=== PATIENT | female | born 1940 | race Caucasian/White ===

== ENCOUNTER 2017-09-10 15:20 | Emergency (ER) | payer MEDICARE, BC, SELFPAY ==
[2017-09-10 15:21] VITALS: BP 153/90; PULSE 118; RESP 20; TEMP 37.1; O2SAT 95; BMI 21.9
--- NOTE | 2017-09-10 15:31 | RAD_ITS ---
STUDY: X-RAY CHEST REASON FOR EXAM: Female, 76 years old. Tachycardia TECHNIQUE: A single frontal view of the chest was obtained. COMPARISON: March 31, 2017 FINDINGS: The lungs are adequately aerated. There are minimal opacities in the mid right lung. There is no demonstrated pleural abnormality. The cardiac silhouette is normal in size. The mediastinum and hilar regions are unremarkable. Normal visualized pulmonary arteries. There is atherosclerotic calcification of the thoracic aorta. There are diffuse degenerative changes of the visualized spine. There is levoscoliosis of the thoracic spine. There are degenerative changes in both shoulders. There is no demonstrated abnormality of the visualized upper abdomen. RAD/Chest 1 View (Portable) IMPRESSION: There is minimal atelectasis in the mid right lung, better seen on the CT from the same day. The cardiac silhouette is normal in size. Electronically Signed: Ira Roach MD at 20:13 EST Tel Direct: [phone], Service support ,
--- NOTE | 2017-09-10 15:32 | EKG12_ITS ---
Test Reason : TACHYCARDIA Blood Pressure : / mmHG Vent. Rate : 113 BPM Atrial Rate : 113 BPM P-R Int : 130 ms QRS Dur : 072 ms QT Int : 334 ms P-R-T Axes : 078 055 073 degrees QTc Int : 458 ms Sinus tachycardia Nonspecific ST and T wave abnormality Abnormal ECG Confirmed by DIANA BUSTAMANTE, OTTO ([id number]), order editor CHAD DENNISON ([id number] on 09/13/2017 1:17:57 PM Referred By: SEAN Confirmed By:OTTO ORTIZ MD
[2017-09-10] MEDS: 0.9% Normal Saline 1,000 ML 1000 ML IV (15:40)
--- NOTE | 2017-09-10 15:40 | ED.DCSUM_ITS ---
- ER Visit Summary Date of Service: 09/10/17 Chief Complaint: Palpitations History of Present Illness: The patient is a 76 F presenting with palpitations. She states that she began having chest heaviness. She checked her pulse with her blood pressure machine and it was 186. She complains of midsternal chest heaviness with no radiation. She has a history of COPD, hypertension, hypercholesterolemia, chronic kidney disease, SVT. She is a previous smoker. She states she now is feeling improved. Physical Examination: Vitals are stable. Patient is afebrile. Alert no acute distress. HEENT exam is unremarkable. Neck is supple. Lungs are clear and equal bilaterally. Heart is regular and tachycardic Abdomen is soft nontender nondistended. Extremities are unremarkable. No edema. Skin is warm and dry. No focal neurologic deficit. Remainder of exam is unremarkable. Emergency Department Course and Treatment: Patient is given albuterol and Atrovent aerosols. EKG is sinus tachycardia rate of [address]-T wave changes. CBC, chemistries unremarkable. Creatinine is 1.16. Troponin is negative. D-dimer is elevated at 0.94. Due to elevated d-dimer CTA chest was obtained which shows emphysema with scarring, no PE, small hepatic cyst. Patient was discussed with the hospitalist Dr. Snyder who evaluated her in the ED. Patient does not want to be admitted to the hospital. Dr. Snyder discussed her case with Dr. Younger covering for Dr. Montero. Recommendation to increase her metoprolol from 25 mg once a day to 50 mg once a day. She will follow-up with Dr. Montero next week. She is advised return to the ED for any worsening complaints. Disposition: Discharge home Impression: SVT, resolved; COPD This note was generated with [employer] dictation software. It may contain incorrect words, spelling, and punctuation that were not noted in review of the chart prior to signing ED Disposition - Plan for ED Patient: Chief Complaint: Palpitations Referrals: Jai Morales MD [Primary Care Provider] -
[2017-09-10 15:49] VITALS: PULSE 109; RESP 20
[2017-09-10] MEDS: Ipratropium/Albuterol Sulfate 3 ML AMPUL.NEB INHALATION (15:49)
[2017-09-10] MEDS: Albuterol 2.5 MG/3 ML VIAL.NEB. INHALATION ×2 (16:00→16:07)
[2017-09-10 16:02] LABS: Absolute Lymphocyte Count 0.94 X10^3/ul (0.83-4.51); Absolute Neutrophil Count 7.1 X10^3/uL (2.0-7.7); Basophil# 0.02 X10^3/uL; Basophil% 0.2 % (0-1); Eosinophil# 0.08 X10^3/uL; Hematocrit 42.8 % (37-47); Hemoglobin 13.8 g/dl (12.0-15.0); Lymphocyte # 0.94 X10^3/ul (4.0); Lymphocyte % 11.3 % (19-41); Mean Corp Hgb Conc 32.2 g/gl (32-36); Mean Corpuscular Hgb 30.9 pg (27.0-32.0); Mean Platelet Vol. 9.7 fl (6.2-12.0); Monocyte# 0.15 X10^3/uL; Monocyte% 1.8 % (0-10); Neutrophil # 7.06 X10^3/uL (2.7-7.7); Neutrophil % 85.1 % (47-70); Platelet Count 233 K/mm3 (150-450); RBC Distribution Width CV 15.3 % (11.6-14.6); RBC Distribution Width SD 53.5 fl (35.1-43.9); Red Blood Count 4.46 M/mm3 (4.2-5.4); White Blood Count 8.3 K/mm3 (4.4-11.0)
[2017-09-10 16:07] LABS: POSITIVE COUNT NO; POSITIVE DIFFERENTIAL NO; POSITIVE MORPHOLOGY NO
[2017-09-10 16:09] LABS: D-Dimer Quantitative (DVT/PE) 0.94 FEU/ug/m (0.27-0.49)
--- NOTE | 2017-09-10 16:10 | CT_ITS ---
STUDY: CTA CHEST REASON FOR EXAM: Female, 76 years old. Elevated d-dimer, tachycardia RADIATION DOSAGE (If Supplied By Facility): CTDIvol = ( 5.8 ) mGy, DLP = ( 183.87 ) mGycm TECHNIQUE: The examination was performed with the intravenous administration of 75 ml of Isovue 370 contrast material. Post-processing of the angiographic images was performed, with multiplanar reformation and 3D reconstruction. Individualized dose optimization techniques were used for this CT. COMPARISON: Chest radiograph from the same day FINDINGS: Normal enhancement of the main pulmonary artery and right and left pulmonary arteries without filling defects. There are peripheral filling defects within pulmonary artery branches to the right lower lobe. There are marked vascular calcifications in the thoracic aorta. There is no demonstrated aortic dissection. The heart is normal in size. There are calcifications of the coronary arteries. The mediastinum is unremarkable. The hilar regions are unremarkable. The airways in the lower lobes are dilated. There are bullous changes throughout both lungs. There is minimal biapical scarring. There are coarse opacities in the lateral segment of the right upper lobe and medial segment of the right lower lobe. There are a few calcified granulomas in the right lung. There is no demonstrated pleural abnormality. The soft tissues are unremarkable. There are mild degenerative changes in the visualized spine. There is a 1.6 cm hypodensity which is incompletely visualized in the liver, probable cyst. The kidneys were not adequately imaged. No acute abnormalities are seen in the upper abdomen. CT/CTA Chest W/WO Contrast IMPRESSION: There are minimal pulmonary emboli within pulmonary artery branches to the right lower lobe. These are peripherally located and may be subacute or chronic. There is atelectasis in the lateral segment of the right upper lobe and medial segment of the right lower lobe. There are emphysematous changes in both lungs. There is bronchiectasis in both lung bases. There is no pleural effusion or significant lymphadenopathy. N.B. : The above information has been verbally conveyed by Ira Roach MD to Dr. Marianne Montana, Referring Physician, on 09/10/2017 20:03:33 (ET). Electronically Signed: Ira Roach MD at 20:02 EST Tel Direct: [phone], Service support , N.B. : The above information has been verbally conveyed by Ira Roach MD to Dr. Marianne Montana, Referring Physician, on 09/10/2017 20:03:33 (ET).
--- NOTE | 2017-09-10 16:10 | ED.RN ---
DR ALLEN NOTIFIED OF DDIMER RESULTS
[2017-09-10 16:11] LABS: Anion Gap 10 (5-15); BUN 16 mg/dL (7-18); BUN/Creat Ratio 13.8 RATIO (10-20); Calcium,Total 8.8 mg/dL (8.5-10.1); Chloride 107 mmol/L (98-107); Creatinine, Serum 1.16 mg/dL (0.55-1.02); EST Glomerular Filtration Rate 48 mL/min (>60); Est Glom Filt Rate - Afr Amer 59 mL/min (>60); Estimated Creatinine Clearance 33.14 ml/min; Glucose 149 mg/dL (74-106); Potassium 3.9 mmol/L (3.5-5.1); Sodium Level 142 mmol/L (136-145)
[2017-09-10 16:44] VITALS: BP 175/69; PULSE 105; RESP 18; O2SAT 98
[2017-09-10 18:17] VITALS: BP 148/64; PULSE 98; O2SAT 98
[2017-09-10 19:08] VITALS: BP 156/69; PULSE 104; RESP 16; O2SAT 97
--- NOTE | 2017-09-10 19:57 | ED.DEP ---
ED Disposition - Plan for ED Patient: Chief Complaint: Palpitations Instructions: ED Tachycardia Pat PSVT Referrals: Jai Morales MD [Primary Care Provider] - Micha Montero MD [STAFF PHYSICIAN] -
--- NOTE | 2017-09-10 20:30 | ED.DCSUM_ITS ---
- ER Visit Summary Date of Service: 09/10/17 This is an addendum to the previous dictation. Preliminary reading of CTA chest was initially read by Dr. Maciel as no PE. The final reading read by Dr. Roach showed there are minimal pulmonary emboli within pulmonary artery branches to the right lower lobe. These are peripherally located and may be subacute or chronic.There is atelectasis in the lateral segment of the right upper lobe and medial segment of the right lower lobe. There are emphysematous changes in both lungs. There is bronchiectasis in both lung bases. There is no pleural effusion or significant lymphadenopathy. Dr Snyder again discussed with the patient that she had one abnormal CT result and one reading that showed no PE. She is not hypoxic. She still wishes to go home. She is started on Xarelto and will follow up with her application security engineer on Wednesday. She is advised to return to ED for any worsening complaints. This note was generated with [employer] dictation software. It may contain incorrect words, spelling, and punctuation that were not noted in review of the chart prior to signing ED Disposition - Plan for ED Patient: Chief Complaint: Palpitations Instructions: ED Tachycardia Pat PSVT Referrals: Micha Montero MD [STAFF PHYSICIAN] - Jai Morales MD [Primary Care Provider] -
--- NOTE | 2017-09-10 20:33 | ED.DEP ---
ED Disposition - Plan for ED Patient: Chief Complaint: Palpitations Instructions: ED Tachycardia Pat PSVT Prescriptions: Rivaroxaban [Xarelto] 15 mg PO BID #42 tablet Referrals: Micha Montero MD [STAFF PHYSICIAN] - Jai Morales MD [Primary Care Provider] -
[2017-09-10] MEDS: Rivaroxaban 15 MG Tablet PO (20:46)
[2017-09-10 20:47] VITALS: BP 114/54; PULSE 89; RESP 18; O2SAT 97
== END 2017-09-10 20:50 | disposition home or self-care (01) ==
PROVIDERS: Emergency Provider Emergency Medicine; Family Provider Family Medicine; PCP Family Medicine
DX: I47.1 Supraventricular tachycardia (principal); I26.99 Other pulmonary embolism without acute cor pulmonale; J98.11 Atelectasis; J44.9 Chronic obstructive pulmonary disease, unspecified; E78.00 Pure hypercholesterolemia, unspecified; I12.9 Hypertensive chronic kidney disease with stage 1 through stage 4 chronic kidney disease, or unspecified chronic kidney disease; N18.9 Chronic kidney disease, unspecified; Z87.891 Personal history of nicotine dependence; Z79.51 Long term (current) use of inhaled steroids; Z79.82 Long term (current) use of aspirin; Z79.899 Other long term (current) drug therapy
CPT/HCPCS: 71045; 71275; 80048; 84484; 85025; 85379; 93005; 94640; 96360; 99285; J7030; Q9967; A4216

== ENCOUNTER → 2017-09-29 07:46 | Outpatient (CLI) | payer MEDICARE, BC, SELFPAY ==
--- NOTE | 2017-09-29 07:54 | VDLE_ITS ---
Reason For Study: PE RIGHT LEFT GSV is normal. GSV is normal. CFV is compressible, spontaneous, competent CFV is compressible, spontaneous, competent, and demonstrates pulsatile venous flow. and demonstrates pulsatile venous flow. FV is compressible, spontaneous, competent FV is compressible, spontaneous, competent and demonstrates pulsatile venous flow. and demonstrates pulsatile venous flow. POP V is compressible, spontaneous, POP V is compressible, spontaneous, competent and demonstrates pulsatile venous competent and demonstrates pulsatile venous flow. flow. T/P Trunk is compressible. T/P Trunk is compressible. PTV is compressible. PTV is compressible. RT PerV is compressible. LT PerV is compressible. Procedure Exam performed in department. A preliminary report was called and/or faxed to Dr. Mathis. Interpretation Summary Deep veins of the lower extremities are bilaterally patent and compressible segmentally. There is no evidence of deep vein thrombosis on either side. Valvular competence appears intact within the proximal deep venous systems bilaterally. The greater saphenous veins appear bilaterally patent and compressible segmentally. Pulsatile flow is noted in the deep venous systems bilaterally, which may be indicative of elevated central venous pressure (i.e. congestive heart failure, tricuspid valve insufficiency, etc.). Clinical correlation is advised. Ordering Physician: Emmett Mathis Referring Physician: Emmett Mathis Performed By: Shreya Melton RVT
== END ==
PROVIDERS: Family Provider Family Medicine; PCP Family Medicine; Visit Provider Internal Medicine Pulmonary Disease
DX: I26.99 Other pulmonary embolism without acute cor pulmonale (principal); R06.00 Dyspnea, unspecified
CPT/HCPCS: 93970

== ENCOUNTER → 2017-10-29 12:28 | Outpatient (CLI) | payer MEDICARE, BC, SELFPAY ==
[2017-10-29 13:40] LABS: BUN 16 mg/dL (7-18); Creatinine, Serum 1.31 mg/dL (0.55-1.02); EST Glomerular Filtration Rate 42 mL/min (>60); Est Glom Filt Rate - Afr Amer 51 mL/min (>60)
== END ==
PROVIDERS: Family Provider Family Medicine; PCP Family Medicine; Visit Provider Internal Medicine Pulmonary Disease
DX: I10 Essential (primary) hypertension (principal); I26.99 Other pulmonary embolism without acute cor pulmonale; Z79.899 Other long term (current) drug therapy
CPT/HCPCS: 36415; 82565; 84520

== ENCOUNTER → 2017-12-06 12:08 | Outpatient (CLI) | payer MEDICARE, BC, SELFPAY ==
--- NOTE | 2017-12-06 12:10 | EKG12_ITS ---
Test Reason : PALPITATIONS Blood Pressure : / mmHG Vent. Rate : 080 BPM Atrial Rate : 080 BPM P-R Int : 124 ms QRS Dur : 078 ms QT Int : 384 ms P-R-T Axes : 080 055 069 degrees QTc Int : 442 ms Sinus rhythm with Possible Premature atrial complexes with Aberrant conduction with junctional escape complexes Nonspecific ST and T wave abnormality Abnormal ECG Confirmed by JAKI BUSTAMANTE, DENIZ ([id number]), communications editor CHAD DENNISON ([id number]) on 12/08/2017 2:25:39 PM Referred By: Emily Gutiérrez Confirmed By:DENIZ POLLACK MD
== END ==
PROVIDERS: Family Provider Family Medicine; PCP Family Medicine; Visit Provider Physician Assistant Medical
DX: R00.2 Palpitations (principal)
CPT/HCPCS: 93005

== ENCOUNTER → 2017-12-23 14:57 | Outpatient (CLI) | payer MEDICARE, BC, SELFPAY ==
--- NOTE | 2017-12-23 15:02 | VDLE_ITS ---
Reason For Study: LEG SWELLING RIGHT LEFT GSV is normal. GSV is normal. CFV is compressible, spontaneous, competent CFV is compressible, spontaneous, competent, and demonstrates pulsatile venous flow. and demonstrates pulsatile venous flow. FV is compressible, spontaneous, competent FV is compressible, spontaneous, competent and demonstrates pulsatile venous flow. and demonstrates pulsatile venous flow. POP V is compressible, spontaneous, POP V is compressible, spontaneous, competent and demonstrates pulsatile venous competent and demonstrates pulsatile venous flow. flow. T/P Trunk is compressible. T/P Trunk is compressible. PTV is compressible. PTV is compressible. RT PerV is compressible. LT PerV is compressible. Procedure Exam performed in department. A preliminary report was called and/or faxed to Ailyn Gutiérrez. Interpretation Summary Deep veins of the lower extremities are bilaterally patent and compressible segmentally. There is no evidence of deep vein thrombosis on either side. Valvular competence appears intact within the proximal deep venous systems bilaterally. The greater saphenous veins appear bilaterally patent and compressible segmentally. Pulsatile flow is noted in the deep venous systems bilaterally, which may be indicative of elevated central venous pressure (i.e. congestive heart failure, tricuspid valve insufficiency, etc.). Clinical correlation is advised. Ordering Physician: Emily Gutiérrez Referring Physician: Emily Gutiérrez Performed By: Shreya Melton RVT
== END ==
PROVIDERS: Family Provider Family Medicine; PCP Family Medicine; Visit Provider Physician Assistant Medical
DX: R60.0 Localized edema (principal)
CPT/HCPCS: 93970

== ENCOUNTER → 2017-12-29 08:56 | Outpatient (CLI) | payer MEDICARE, BC, SELFPAY ==
--- NOTE | 2017-12-30 05:18 | LEAS ---
Arterial Study - Arterial Study Arterial Study: Bilateral lower extremity noninvasive arterial exam at rest Right lower extremity The right PT and DP ankle-brachial index at rest are 1.03 and 1.09 respectively. The right posterior tibial Doppler waveforms biphasic while the dorsalis pedis is triphasic. Volume pulse recordings were not obtained. Left lower extremity The left PT and DP ankle-brachial indices are 1.08 and 1.02 respectively. The left posterior tibial Doppler waveform is biphasic while the dorsalis pedis is triphasic. Impression Normal bilateral lower extremity resting ankle brachial indices. Slightly diminished bilateral posterior tibial biphasic Doppler waveforms although nicely maintained triphasic dorsalis pedis. Endings would be consistent with mild but likely not clinically significant occlusive disease of bilateral posterior tibials. Emmett Quintanilla M.D., F.A.C.S.
== END ==
PROVIDERS: Family Provider Family Medicine; PCP Family Medicine; Visit Provider Physician Assistant Medical
DX: R09.89 Other specified symptoms and signs involving the circulatory and respiratory systems (principal); R60.0 Localized edema
CPT/HCPCS: 93922

== ENCOUNTER → 2018-04-18 14:36 | Outpatient (CLI) | payer MEDICARE, BC, SELFPAY ==
--- NOTE | 2018-04-18 14:49 | RAD_ITS ---
STUDY: X-RAY CHEST REASON FOR EXAM: Female, 77 years old. Shortness of breath and COPD. TECHNIQUE: PA and lateral views of the chest. COMPARISON: CT of the chest dated September 10, 2017. FINDINGS: There is hyperinflation of the lungs consistent with chronic obstructive lung disease (COPD). There is no demonstrated pleural abnormality. Normal size heart. Normal mediastinum and cecile. There is prominence of the pulmonary hilar arteries without peripheral pulmonary vascular congestion, suggesting pulmonary hypertension. There is atherosclerotic calcification of the aortic arch with tortuosity. There is demineralization of the osseous structures. There is multilevel thoracic spondylosis. Normal visualized ribs, clavicles, and shoulders. There is no demonstrated abnormality of the visualized soft tissue structures of the upper abdomen. RAD/Chest PA and Lateral IMPRESSION: COPD without evidence of acute cardiopulmonary disease. Electronically Signed: Amanda Jackson MD at 5:33 EDT , Service support ,
[2018-04-18 16:02] LABS: Erythrocyte Sedimentation Rate 9 mm/hr (0-30)
== END ==
PROVIDERS: Family Provider Family Medicine; PCP Family Medicine; Visit Provider Internal Medicine Pulmonary Disease
DX: J84.116 Cryptogenic organizing pneumonia (principal)
CPT/HCPCS: 36415; 71046; 85652

== ENCOUNTER → 2018-06-27 12:41 | Outpatient (CLI) | payer MEDICARE, BC, SELFPAY ==
[2018-06-21 12:44] VITALS: BMI 21.9
--- NOTE | 2018-06-27 13:03 | RAD_ITS ---
STUDY: X-RAY CHEST REASON FOR EXAM: Female, 77 years old. Cough TECHNIQUE: PA and lateral views of the chest. COMPARISON: 04/18/2018 FINDINGS: There is hyperinflation of the lungs consistent with chronic obstructive lung disease (COPD). There is no demonstrated pleural abnormality. No acute airspace disease. Stable areas of scarring in the right midlung field. Normal size heart. Normal mediastinum and cecile. Normal visualized pulmonary arteries. Normal visualized aortic arch and descending thoracic aorta. There are diffuse degenerative changes of the visualized thoracic spine. Normal visualized ribs, clavicles, and shoulders. There is no demonstrated abnormality of the visualized soft tissue structures of the upper abdomen. RAD/Chest PA and Lateral IMPRESSION: Stable COPD and scarring. No acute airspace disease. Electronically Signed: Lucas Barber DO at 12:59 EST Tel , Service support ,
[2018-06-27 13:46] LABS: Erythrocyte Sedimentation Rate 20 mm/hr (0-30)
== END ==
PROVIDERS: Family Provider Family Medicine; PCP Family Medicine; Referring Provider Internal Medicine Pulmonary Disease; Visit Provider Internal Medicine Pulmonary Disease
DX: J84.116 Cryptogenic organizing pneumonia (principal); J44.9 Chronic obstructive pulmonary disease, unspecified
CPT/HCPCS: 36415; 71046; 85652

== ENCOUNTER → 2018-08-04 07:48 | Outpatient (CLI) | payer MEDICARE, BC, SELFPAY ==
[2018-07-29 13:00] VITALS: BMI 21.9
[2018-08-04 08:12] VITALS: BP 178/80; PULSE 81; RESP 16; TEMP 36.7; O2SAT 96; BMI 20.3
[2018-08-04] MEDS: Cosyntropin 0.25 MG Vial IM (08:15)
== END ==
PROVIDERS: Family Provider Family Medicine; PCP Family Medicine; Referring Provider Nurse Practitioner; Visit Provider Nurse Practitioner
DX: Z79.52 Long term (current) use of systemic steroids (principal)
CPT/HCPCS: 36415; 82533; 96372; J0834

== ENCOUNTER → 2019-01-12 | Outpatient (CLI) | payer MEDICARE, BC, SELFPAY ==
[2018-09-19 13:24] VITALS: BMI 19.1
[2019-01-12 13:32] LABS: Absolute Lymphocyte Count 1.52 X10^3/ul (0.83-4.51); Absolute Neutrophil Count 2.8 X10^3/uL (2.0-7.7); Basophil# 0.03 X10^3/uL; Basophil% 0.5 % (0-1); Eosinophil# 1.22 X10^3/uL; Eosinophils% 20.9 % (0-5); Hematocrit 37.7 % (37-47); Hemoglobin 12.3 g/dl (12.0-15.0); Lymphocyte # 1.52 X10^3/ul (4.0); Mean Corp Hgb Conc 32.6 g/gl (32-36); Mean Corpuscular Hgb 30.3 pg (27.0-32.0); Mean Corpuscular Volume 92.9 fL (81-99); Mean Platelet Vol. 9.3 fl (6.2-12.0); Monocyte# 0.23 X10^3/uL; Monocyte% 3.9 % (0-10); Neutrophil # 2.83 X10^3/uL (2.7-7.7); Neutrophil % 48.5 % (47-70); Platelet Count 184 K/mm3 (150-450); RBC Distribution Width CV 14.8 % (11.6-14.6); RBC Distribution Width SD 49.8 fl (35.1-43.9); Red Blood Count 4.06 M/mm3 (4.2-5.4); White Blood Count 5.8 K/mm3 (4.4-11.0)
[2019-01-12 13:34] LABS: POSITIVE COUNT NO; POSITIVE DIFFERENTIAL NO; POSITIVE MORPHOLOGY NO
== END | disposition home or self-care (01) ==
LOC: LAB 13:16
PROVIDERS: Family Provider Family Medicine; PCP Family Medicine; Referring Provider Internal Medicine Pulmonary Disease; Visit Provider Internal Medicine Pulmonary Disease
DX: J44.9 Chronic obstructive pulmonary disease, unspecified (principal); J84.116 Cryptogenic organizing pneumonia
CPT/HCPCS: 36415; 85025

== ENCOUNTER → 2019-01-23 | Outpatient (CLI) | payer MEDICARE, BC, SELFPAY ==
[2018-09-19 13:24] VITALS: BMI 19.1
--- NOTE | 2019-01-23 16:18 | US_ITS ---
STUDY: RENAL ULTRASOUND - COMPLETE REASON FOR EXAM: Female, 78 years old. Chronic kidney disease stage III TECHNIQUE: Ultrasound evaluation of the kidneys was performed with real-time and static sparks-scale imaging. COMPARISON: None. FINDINGS: RIGHT KIDNEY: The kidney is small with echogenic cortex relative to liver. It measures 6.6 x 4.1 x 2.3 cm with cortical thickness of 7 mm. There is no right renal mass or cyst. There are no right renal calculi. There is no right hydronephrosis. DISTAL RIGHT URETER: There is non-visualization of the distal right ureter. There is no demonstrated right ureterovesical junction calculus. There is a visualized right ureteral jet. LEFT KIDNEY: The kidney is small with echogenic cortex relative to liver. It measures 8.9 x 5.1 x 3.4 cm with cortical thickness of 9 mm. There is no left renal mass or cyst. There are no left renal calculi. There is no left hydronephrosis. DISTAL LEFT URETER: There is non-visualization of the distal left ureter. There is no demonstrated left ureterovesical junction calculus. There is a visualized left ureteral jet. BLADDER: The distended urinary bladder has a volume of for 62.54 ml. There is a normal wall thickness of the distended urinary bladder. There is no demonstrated mass within the urinary bladder. There are no demonstrated bladder calculi. US/Kidney and Bladder IMPRESSION: The kidneys are small and echogenic bilaterally with thin cortices. Findings are compatible with chronic medical renal disease. Electronically Signed: Carlos Mcmillan MD at 17:58 EDT Tel , Service support ,
== END | disposition home or self-care (01) ==
LOC: US 16:16
PROVIDERS: Family Provider Family Medicine; PCP Family Medicine; Referring Provider Internal Medicine Nephrology; Visit Provider Internal Medicine Nephrology
DX: N18.3 Chronic kidney disease, stage 3 (moderate) (principal)
CPT/HCPCS: 76770

== ENCOUNTER 2019-01-26 13:38 | Emergency (ER) | payer MEDICARE, BC, SELFPAY ==
[2018-09-19 13:24] VITALS: BMI 19.1
[2019-01-26 13:39] VITALS: BP 195/69; PULSE 82; PULSE 85; RESP 17; TEMP 36.7; O2SAT 96; O2SAT 97; BMI 18.9
--- NOTE | 2019-01-26 13:49 | EKG12_ITS ---
Test Reason : CP Blood Pressure : / mmHG Vent. Rate : 093 BPM Atrial Rate : 133 BPM P-R Int : 000 ms QRS Dur : 080 ms QT Int : 402 ms P-R-T Axes : 000 042 066 degrees QTc Int : 499 ms Sinus Rhythm with PSVC's Nonspecific ST and T wave abnormality Abnormal ECG Confirmed by DIANA BUSTAMANTE, OTTO ([id number]), greeting card editor ANNA HERNANDEZ ([id number]) on 01/30/2019 2:22:55 PM Referred By: DEBORAH/CARMELLA Confirmed By:OTTO ORTIZ MD
--- NOTE | 2019-01-26 13:51 | ED.DCSUM_ITS ---
History of Present Illness Chief Complaint: Shortness of Breath Informant: Patient, Family Onset: Today Context: Sudden Onset Timing: Intermittent Quality: Dyspnea on exertion Location: Home going up a flight of steps Current Severity: Mild Maximum Severity: Severe Worsened by: Walking up a flight of steps Relieved by: Better with rest Associated Symptoms: Productive cough, which is unchanged from baseline Narrative: Patient is a 78-year-old woman who presents with dyspnea after walking up a flight of steps. She denied chest discomfort. She denied nausea or vomiting. She denied diaphoresis. She has been on prednisone the last 3 months. This has occurred to her in the past and the cause was COPD. She does have a history of pulmonary embolus. She is presently on no anticoagulant. She denies fever, chills or night sweats. She sleeps in the recliner. She sleeps in a recliner for comfort. She denies history of congestive heart failure. She denies GI symptoms. She denies urologic symptoms. She does report mild swelling of her lower extremities, which is not uncommon for her. Prior similar symptoms: Yes - Exacerbation of COPD Recent Illness/Hospitalization: No - Past Medical History (1) Atherosclerotic heart disease of [place] coronary artery with other forms of angina pectoris Status: Chronic (2) CKD (chronic kidney disease), stage III Status: Chronic (3) COPD (chronic obstructive pulmonary disease) Status: Chronic (4) Carotid bruit Status: Chronic (5) Hypertension Status: Chronic (6) Non-rheumatic tricuspid valve insufficiency Status: Chronic (7) Pulmonary hypertension Status: Chronic (8) SVT (supraventricular tachycardia) Status: Chronic Past Medical History - Allergies and Home Meds Allergies/Adverse Reactions: Allergies levofloxacin [From Levaquin] Adverse Reaction (Severe, Verified 01/26/19 13:38) Unknown sulfamethoxazole [From Bactrim] Adverse Reaction (Severe, Verified 01/26/19 13:38) Unknown trimethoprim [From Bactrim] Adverse Reaction (Severe, Verified 01/26/19 13:38) Unknown A 'MYCIN' BUT DO NOT REMEMBER Allergy (Uncoded 07/28/18 09:54) Hives Primary Care Physician: Jai Morales MD [Primary Care Provider] - Prior records reviewed: Yes Surgical History: appendectomy, hysterectomy Lives: Alone Smoking Status: Former smoker Alcohol: None - Family History Maternal Family History: Family History (Last Reviewed 09/19/18 @ 13:37 by Denisha Jansen) Father CAD (coronary artery disease) Myocardial infarction Mother CAD (coronary artery disease) Hypertension Sister CAD (coronary artery disease) Sister Hypertension CHF (congestive heart failure) Family History: Reports: Hypertension Paternal Family History: Family History (Last Reviewed 09/19/18 @ 13:37 by Denisha Jansen) Father CAD (coronary artery disease) Myocardial infarction Mother CAD (coronary artery disease) Hypertension Sister CAD (coronary artery disease) Sister Hypertension CHF (congestive heart failure) Family History: Reports: Heart Disease - [place] 60s. Review of Systems General: Denies: Chills, Fever, Sweats Eyes: Denies: Visual changes - bilaterally, Blurred Vision - bilaterally, Diplopia ENT: Denies: Bilateral ear pain, Rhinorrhea, Sore throat Cardiovascular: Denies: Chest pain, Palpitations Respiratory: Reports: Dyspnea, Cough, Sputum, Dyspnea on exertion. Denies: Orthopnea, Paroxysmal nocturnal dyspnea Gastrointestinal: Denies: Abdominal pain, Nausea, Vomiting, Diarrhea, Melena, Hematochezia Genitourinary: Denies: Dysuria, Hematuria, Frequency Musculoskeletal: Reports: Swelling. Denies: Myalgias, Arthralgias, Back pain, Extremity Pain Skin: Denies: Rash, Wounds Neurological: Denies: Headache, Weakness, Numbness Endocrine: Denies: Polyuria, Polydipsia Hematologic: Denies: Easy bruising, Easy bleeding Physical Exam Vital Signs/Narrative: Vital Signs Temp Pulse Resp BP Pulse Ox 01/26/19 13:39 98.1 F 82 17 195/69 H 96 Inital Vital Signs reviewed: Yes General: Well nourished, Well developed, No Acute Distress Head: Normocephalic, Atraumatic Eyes: Perrl, EOMI ENT: Moist mucous membranes, No rhinorrhea Neck: Supple, Nontender Cardiovascular: Regular rate, Regular rhythm, No murmurs Respiratory: Chest nontender, Wheezing, Decreased Air Movement. Negative for: No distress, CTA bilaterally Abdomen: Soft, Nontender, Nondistended, Normal bowel sounds, No masses Back: Nontender, Normal Inspection. Negative for: CVA tenderness, Spinal tende rness Extremities: Nontender, Edema - Plus minus bilaterally Skin: Normal color, No rash Neurological: Alert, Oriented x3, Cranial nerves II-XII grossly intact, Normal Strength, Normal Sensation Psychological: Normal affect, Normal Mood Diagnostic/Tx/Re-eval Chest X-Ray - ED: 2 View, Read by ED Physician, Unchanged, Normal, Heart, Mediastinum, Bony Structures, No Acute Disease, Chronic Changes Impressions Chest X-Ray 01/26/19 14:27 IMPRESSION: Hyperinflated lungs without significant change since the previous study 27 June 2018 . Electronically Signed: Aden Hernandez, at 14:44 EDT Tel , Service support , 01/26/19 14:27 Chest PA and Lateral [RAD] Stat Laboratory Results 01/26/19 01/26/19 13:59 13:59 WBC 7.0 RBC 3.99 L Hgb 12.0 Hct 36.4 L MCV 91.2 MCH 30.1 MCHC 33.0 RDW 14.9 H RDW Differential 48.8 H Plt Count 187 MPV 8.8 Immature Gran % (Auto) 0.100 Neut % (Auto) 60.0 Lymph % (Auto) 15.7 L Pre[place] % (Auto) 4.5 Eos % (Auto) 19.3 H Baso % (Auto) 0.4 Absolute Neuts (auto) 4.2 Absolute Lymphs (auto) 1.09 Total Counted Not Reportable Sodium 138 Potassium 4.0 Chloride 107 Carbon Dioxide 27.0 Anion Gap 4 L BUN 25 H Creatinine 1.43 H Estim Creat Clear Calc 25.28 Est GFR (MDRD) Af Amer 46 L Est GFR (MDRD) Non-Af 38 L BUN/Creatinine Ratio 17.5 Glucose 114 H Calcium 9.1 - EKG Initial EKG Interpretation: Atrial Fibrillation - Ventricular rate is 77. There is artifact. QRS duration 80 ms. QT interval 402 ms. Kirvin is normal. There may be slight ST-T wave changes noted in the lateral leads. Will obtain old for comparison. - Medical Decision Making To evaluate patient's dyspnea will obtain chest x-ray looking for pneumonia, pneumothorax. CBC was obtained to rule out anemia. Basic melena panel was obtained to assess renal function. Doubt pulmonary embolus. Will reassess after aerosol treatments. Patient was reexamined at 1545. She is wheeze free. She is not tachycardic, tachypneic or hypoxic. Will discharge with burst of prednisone. ED Disposition - Plan for ED Patient: Disposition: Home or Assisted Living Diagnosis: Acute exacerbation of chronic obstructive pulmonary disease (COPD) Instructions: Copd Flare Prescriptions: Prednisone [Deltasone] 40 mg PO DAILY #10 tab Prescription Printed Referrals: Jai Morales MD [Primary Care Provider] - 3-5 Days if not improving
[2019-01-26 13:55] VITALS: PULSE 86; RESP 18; O2SAT 95
[2019-01-26] MEDS: Albuterol 2.5 MG/3 ML VIAL.NEB. INHALATION ×3 (13:55→14:38)
[2019-01-26] MEDS: Ipratropium/Albuterol Sulfate 3 ML AMPUL.NEB INHALATION (13:55)
[2019-01-26 14:09] LABS: Absolute Lymphocyte Count 1.09 X10^3/ul (0.83-4.51); Absolute Neutrophil Count 4.2 X10^3/uL (2.0-7.7); Basophil# 0.03 X10^3/uL; Basophil% 0.4 % (0-1); Eosinophil# 1.34 X10^3/uL; Eosinophils% 19.3 % (0-5); Hematocrit 36.4 % (37-47); Lymphocyte # 1.09 X10^3/ul (4.0); Lymphocyte % 15.7 % (19-41); Mean Corpuscular Hgb 30.1 pg (27.0-32.0); Mean Corpuscular Volume 91.2 fL (81-99); Mean Platelet Vol. 8.8 fl (6.2-12.0); Monocyte# 0.31 X10^3/uL; Monocyte% 4.5 % (0-10); Neutrophil # 4.17 X10^3/uL (2.7-7.7); Platelet Count 187 K/mm3 (150-450); RBC Distribution Width CV 14.9 % (11.6-14.6); RBC Distribution Width SD 48.8 fl (35.1-43.9); Red Blood Count 3.99 M/mm3 (4.2-5.4)
[2019-01-26] MEDS: predniSONE 20 MG Tablet 60 MG PO (14:12)
[2019-01-26 14:13] LABS: POSITIVE COUNT NO; POSITIVE DIFFERENTIAL NO; POSITIVE MORPHOLOGY NO
[2019-01-26 14:21] VITALS: O2SAT 94
[2019-01-26 14:22] LABS: Anion Gap 4 (5-15); BUN 25 mg/dL (7-18); BUN/Creat Ratio 17.5 RATIO (10-20); Calcium,Total 9.1 mg/dL (8.5-10.1); Chloride 107 mmol/L (98-107); Creatinine, Serum 1.43 mg/dL (0.55-1.02); EST Glomerular Filtration Rate 38 mL/min (>60); Est Glom Filt Rate - Afr Amer 46 mL/min (>60); Estimated Creatinine Clearance 25.28 ml/min; Glucose 114 mg/dL (74-106); Sodium Level 138 mmol/L (136-145)
--- NOTE | 2019-01-26 14:27 | RAD_ITS ---
STUDY: X-RAY CHEST REASON FOR EXAM: Female, 78 years old. TECHNIQUE: 2 views COMPARISON: June 27, 2018 FINDINGS: Again noted hyperinflation of both lung hercules with flattening of the diaphragm. No evidence of consolidation or atelectasis. The heart is not enlarged. There is markedly tortuosity there is tortuosity and calcification off the aorta. The visualized bones are intact. The trachea is in the midline. No pleural effusion or pneumothorax seen. RAD/Chest PA and Lateral IMPRESSION: Hyperinflated lungs without significant change since the previous study 27 June 2018 . Electronically Signed: Aden Hernandez, at 14:44 EDT Tel , Service support ,
[2019-01-26 14:38] VITALS: PULSE 97; RESP 18
[2019-01-26 15:48] VITALS: BP 177/87; PULSE 97; RESP 21; O2SAT 95
== END 2019-01-26 15:52 | disposition home or self-care (01) ==
PROVIDERS: Emergency Provider Emergency Medicine; Family Provider Family Medicine; PCP Family Medicine
DX: J44.1 Chronic obstructive pulmonary disease with (acute) exacerbation (principal); I12.9 Hypertensive chronic kidney disease with stage 1 through stage 4 chronic kidney disease, or unspecified chronic kidney disease; N18.3 Chronic kidney disease, stage 3 (moderate); I25.118 Atherosclerotic heart disease of native coronary artery with other forms of angina pectoris; I27.20 Pulmonary hypertension, unspecified; Z87.891 Personal history of nicotine dependence; Z79.52 Long term (current) use of systemic steroids; Z86.711 Personal history of pulmonary embolism; Z79.51 Long term (current) use of inhaled steroids; Z79.899 Other long term (current) drug therapy
CPT/HCPCS: 71046; 80048; 85025; 93005; 94640; 99285; A4216

== ENCOUNTER → 2019-02-09 | Outpatient (CLI) | payer MEDICARE, BC, SELFPAY ==
[2019-01-26 13:39] VITALS: BMI 18.9
--- NOTE | 2019-02-09 10:11 | RAD_ITS ---
STUDY: X-RAY CHEST REASON FOR EXAM: Female, 78 years old. COPD. TECHNIQUE: PA and lateral chest COMPARISON: 01/26/2018 FINDINGS: There is prominent pulmonary hyperlucency and hyperinflation with diffuse mild coarsening of the pulmonary interstitium and hemidiaphragm flattening consistent with underlying severe COPD/emphysema. There is a small focus of chronic interstitial scar or fissural thickening in the right suprahilar lung, stable. Lungs are otherwise acutely clear. No suspicious lesions. Normal cardiomediastinal silhouette, cecile and pleural margins. No acute osseous or upper abdominal process. Osteopenia and scoliosis with no significant spondylosis. RAD/Chest PA and Lateral IMPRESSION: Prominent features of COPD/emphysema stable compared to prior imaging with no acute cardiopulmonary process. Electronically Signed: Parmjit Funez MD at 8:18 EDT Tel , Service support ,
== END | disposition home or self-care (01) ==
LOC: RAD 10:10
PROVIDERS: Family Provider Family Medicine; PCP Family Medicine; Referring Provider Internal Medicine Pulmonary Disease; Visit Provider Internal Medicine Pulmonary Disease
DX: J84.116 Cryptogenic organizing pneumonia (principal); J44.9 Chronic obstructive pulmonary disease, unspecified
CPT/HCPCS: 71046

== ENCOUNTER → 2019-03-24 | Outpatient (CLI) | payer MEDICARE, BC, SELFPAY ==
[2019-03-24 13:32] LABS: Erythrocyte Sedimentation Rate 19 mm/hr (0-30)
== END | disposition home or self-care (01) ==
LOC: LAB 12:48
PROVIDERS: Family Provider Family Medicine; PCP Family Medicine; Visit Provider Internal Medicine Pulmonary Disease
DX: I10 Essential (primary) hypertension (principal); I48.91 Unspecified atrial fibrillation; J44.9 Chronic obstructive pulmonary disease, unspecified; J84.116 Cryptogenic organizing pneumonia
CPT/HCPCS: 36415; 85652; 86140

== ENCOUNTER 2019-05-16 06:17 | Inpatient (IN) | payer MEDICARE, BC, SELFPAY ==
[2019-05-16] VITALS (34 sets, daily range): BP systolic 119–200; BP diastolic 70–119; PULSE 63–167; RESP 16–26; TEMP 36.3–36.7; O2SAT 80–100; BMI 20.1; BMI 19.2
--- NOTE | 2019-05-16 06:32 | RAD_ITS ---
STUDY: X-RAY CHEST REASON FOR EXAM: Female, 78 years old. Shortness of breath TECHNIQUE: Single AP portable view of the chest. COMPARISON: 02/09/2019 FINDINGS: There is hyperinflation of the lungs consistent with chronic obstructive lung disease (COPD). There is no demonstrated pleural abnormality. Normal size heart. Normal mediastinum and cecile. Normal visualized pulmonary arteries. Normal visualized aortic arch and descending thoracic aorta. There is a levoscoliosis of the thoracic spine. Normal visualized ribs, clavicles, and shoulders. There is no demonstrated abnormality of the visualized soft tissue structures of the upper abdomen. RAD/Chest 1 View (Portable) IMPRESSION: Emphysema without pneumonia or atelectasis. Electronically Signed: Parmjit Sherman MD at 8:39 EDT Tel , Service support ,
--- NOTE | 2019-05-16 06:32 | EKG12_ITS ---
Test Reason : SOB Blood Pressure : / mmHG Vent. Rate : 114 BPM Atrial Rate : 114 BPM P-R Int : 160 ms QRS Dur : 078 ms QT Int : 348 ms P-R-T Axes : 083 043 095 degrees QTc Int : 479 ms Sinus tachycardia with Premature supraventricular complexes Septal infarct , age undetermined Nonspecific ST-segment abnormality Abnormal ECG Confirmed by DIANA BUSTAMANTE, OTTO ([id number]), purchase request editor CHAD DENNISON ([id number]) on 05/17/2019 9:00:52 AM Referred By: FREYA Confirmed By:OTTO ORTIZ MD
--- NOTE | 2019-05-16 06:33 | ED.VIS.DYS ---
History of Present Illness Chief Complaint: Shortness of Breath Informant: Patient, EMS Onset: Days - 3 Activity at onset: Unknown Timing: Continuous Quality: Wheezing Current Severity: Moderate Maximum Severity: Moderate Worsened by: Coughing, Exertion Relieved by: Albuterol - a little, Oxygen - by EMS, Rest Associated Symptoms: Clear sputum - no more than usual, Cough - no more than usual. Negative for: Ear pain, Fever, Rhinorrhea, Sore throat Chest Pain: Continuous, Tightness Narrative: Patient lives at home alone has been using her albuterol MDI as needed for this shortness of breath, it is helping some but not enough. She states she has an aerosol machine but has not been using it and does not know why. She has been having chest tightness that has been continuous. No leg swelling or orthopnea. Coughing or bringing up white sputum but no more than usual of either. No fevers that she knows of. No GI symptoms except for some abdominal wall soreness when coughing. She is on no home oxygen. Follows with pulmonary, she last was on steroids 1-2 weeks ago, and is chronically on daily antibiotics to prevent pneumonia. She does not remember which when she is on right now. Recent Illness/Hospitalization: No - Past Medical History (1) Atherosclerotic heart disease of [place] coronary artery with other forms of angina pectoris Status: Chronic (2) CKD (chronic kidney disease), stage III Status: Chronic (3) COPD (chronic obstructive pulmonary disease) Status: Chronic (4) Hyperlipidemia Status: Chronic (5) Hypertension Status: Chronic (6) Non-rheumatic tricuspid valve insufficiency Status: Chronic (7) Pulmonary hypertension Status: Chronic (8) SVT (supraventricular tachycardia) Status: Chronic Past Medical History - Allergies and Home Meds Allergies/Adverse Reactions: Allergies levofloxacin [From Levaquin] Adverse Reaction (Severe, Verified 05/16/19 06:24) Unknown sulfamethoxazole [From Bactrim] Adverse Reaction (Severe, Verified 05/16/19 06:24) Unknown trimethoprim [From Bactrim] Adverse Reaction (Severe, Verified 05/16/19 06:24) Unknown A 'MYCIN' BUT DO NOT REMEMBER Allergy (Uncoded 05/16/19 06:24) Hives Primary Care Physician: Jai Morales MD [Primary Care Provider] - Doctors: Dr. Tony Bautista Surgical History: appendectomy, hysterectomy Lives: Alone Smoking Status: Former smoker - Family History Maternal Family History: Family History (Last Reviewed 09/19/18 @ 13:37 by Denisha Jansen) Father CAD (coronary artery disease) Myocardial infarction Mother CAD (coronary artery disease) Hypertension Sister CAD (coronary artery disease) Sister Hypertension CHF (congestive heart failure) Family History: Reports: Hypertension Paternal Family History: Family History (Last Reviewed 09/19/18 @ 13:37 by Denisha Jansen) Father CAD (coronary artery disease) Myocardial infarction Mother CAD (coronary artery disease) Hypertension Sister CAD (coronary artery disease) Sister Hypertension CHF (congestive heart failure) Family History: Reports: Heart Disease - [place] 60s. Review of Systems General: Reports: Malaise. Denies: Chills, Fever, Sweats Eyes: Denies: Visual changes - bilaterally, Diplopia ENT: Denies: Bilateral ear pain, Rhinorrhea, Sore throat Cardiovascular: Reports: Chest pain. Denies: Palpitations, Heart racing Respiratory: Reports: Dyspnea, Cough, Sputum, Dyspnea on exertion. Denies: Orthopnea Gastrointestinal: Denies: Abdominal pain, Nausea, Vomiting, Diarrhea, Melena, Hematochezia Genitourinary: Denies: Dysuria, Hematuria, Frequency Musculoskeletal: Denies: Back pain, Swelling, Extremity Pain Skin: Denies: Rash, Wounds Neurological: Denies: Headache, Weakness, Numbness Physical Exam Vital Signs/Narrative: Vital Signs Temp Pulse Resp BP Pulse Ox 05/16/19 06:25 98 05/16/19 06:18 97.4 F L 117 H 26 H 200/119 H 98 Inital Vital Signs reviewed: Yes General: Well nourished, Well developed, Acute Distress - mild respiratory Head: Normocephalic, Atraumatic Eyes: Perrl, EOMI ENT: Moist mucous membranes, No rhinorrhea Neck: Supple, Nontender Cardiovascular: Regular rate, Regular rhythm, No murmurs Respiratory: Chest nontender, Wheezing - expiratory ross at bases, symmetric, Diminished - throughout, symmetrically, Decreased Air Movement - speaking in [id number]. Negative for: Rales, Rhonchi Abdomen: Soft, Nontender, Nondistended, Normal bowel sounds Back: Nontender, Normal Inspection. Negative for: CVA tenderness Extremities: Nontender, No edema Skin: Normal color, No rash, No Trauma Neurological: Alert, Oriented x3, Cranial nerves II-XII grossly intact, Normal Strength, Normal Sensation Psychological: Normal affect, Normal Mood Diagnostic/Tx/Re-eval Chest X-Ray - ED: 1 View, Read by ED Physician, No Acute Disease, Chronic Changes Clinical Impression(s) from Imaging Studies Chest X-Ray 05/16/19 06:32 IMPRESSION: Emphysema without pneumonia or atelectasis. Electronically Signed: Parmjit Sherman MD at 8:39 EDT Tel , Service support , Laboratory Results 05/16/19 05/16/19 05/16/19 06:30 06:30 06:30 WBC 7.1 RBC 3.83 L Hgb 12.1 Hct 37.4 MCV 97.7 MCH 31.6 MCHC 32.4 RDW Std Deviation 54.0 H RDW Coeff of Kellie 15.4 H Plt Count 200 MPV 9.3 Immature Gran % (Auto) 0.300 Neut % (Auto) 61.2 Lymph % (Auto) 21.7 [place] % (Auto) 4.1 Eos % (Auto) 12.1 H Baso % (Auto) 0.6 Absolute Neuts (auto) 4.3 Absolute Lymphs (auto) 1.53 Nucleated RBC % 0 Sodium 143 Potassium 4.0 Chloride 111 H Carbon Dioxide 24.0 Anion Gap 8 BUN 27 H Creatinine 1.59 H Estim Creat Clear Calc 22.36 Est GFR (MDRD) Af Amer 40 L Est GFR (MDRD) Non-Af 33 L BUN/Creatinine Ratio 17.0 Glucose 140 H Calcium 8.2 L Troponin I < 0.015 B-Natriuretic Peptide 983.0 H - Rhythm Strip Rhythm Strip: Sinus Tach Rate: 114 Ectopy: PAC(s) - EKG Initial EKG Interpretation: Sinus Rhythm, No Acute Injury Pattern Treatment - Dyspnea: Oxygen, Albuterol, Atrovent, NTG SL, Steroid Repeat Evaluation: Improved With Ambulation: Desaturation, Tachypnea - Medical Decision Making Chest x-ray shows no pneumonia, labs are unremarkable, she does have some chronic kidney disease. She felt a lot better after nebulizer treatments and was actually wheezing a little louder, probably opened her up since she was very tight. Solu-Medrol was given. She was not hypoxic on room air so we ambulated her and she went a very short distance became very dyspneic, and her saturations went down to 80%. She does not have home oxygen. She was placed back on oxygen and given another albuterol treatment and plan is for admission to the hospital. Also gave her a single nitroglycerin, her blood pressure was over 200 and came down to 183/92. I suspect her chest tightness is pulmonary in etiology but unable to rule out cardiac involvement after reviewing her elevated BNP in the 900's. Her EKG is unremarkable from an ischemic standpoint. ED Disposition - Plan for ED Patient: Disposition: Acute Care Hospital [facility] Diagnosis: Acute respiratory failure with hypoxia, COPD with exacerbation, Accelerated hypertension, Chest pain Referrals: Jai Morales MD [Primary Care Provider] -
[2019-05-16 06:48] LABS: Absolute Lymphocyte Count 1.53 X10^3/uL (0.83-4.51); Absolute Neutrophil Count 4.3 X10^3/uL (2.0-7.7); Basophil# 0.04 X10^3/uL; Basophil% 0.6 % (0-1); Eosinophil# 0.85 X10^3/uL; Eosinophils% 12.1 % (0-5); Hematocrit 37.4 % (37-47); Hemoglobin 12.1 g/dL (12.0-15.0); Lymphocyte # 1.53 X10^3/ul (4.0); Lymphocyte % 21.7 % (19-41); Mean Corp Hgb Conc 32.4 g/dL (32-36); Mean Corpuscular Hgb 31.6 pg (27.0-32.0); Mean Corpuscular Volume 97.7 fL (81-99); Mean Platelet Vol. 9.3 fl (6.2-12.0); Monocyte# 0.29 X10^3/uL; Monocyte% 4.1 % (0-10); NRBC Flagged by Analyzer 0 % (0-5); Neutrophil # 4.32 X10^3/uL (2.7-7.7); Neutrophil % 61.2 % (47-70); Platelet Count 200 K/mm3 (150-450); RBC Distribution Width CV 15.4 % (11.6-14.6); Red Blood Count 3.83 M/mm3 (4.2-5.4); White Blood Count 7.1 K/mm3 (4.4-11.0)
[2019-05-16] MEDS: Nitroglycerin SL (ED/IMG/CATH) 0.4 MG TABLET SUBLINGUAL (06:55)
[2019-05-16] MEDS: Ipratropium/Albuterol Sulfate 3 ML AMPUL.NEB INHALATION ×3 (07:01→19:01)
[2019-05-16 07:03] LABS: Anion Gap 8 (5-15); BUN 27 mg/dL (7-18); Calcium,Total 8.2 mg/dL (8.5-10.1); Chloride 111 mmol/L (98-107); Creatinine, Serum 1.59 mg/dL (0.55-1.02); EST Glomerular Filtration Rate 33 mL/min (>60); Est Glom Filt Rate - Afr Amer 40 mL/min (>60); Estimated Creatinine Clearance 22.36 ml/min; Glucose 140 mg/dL (74-106); Sodium Level 143 mmol/L (136-145)
[2019-05-16] MEDS: Albuterol 2.5 MG/3 ML VIAL.NEB. INHALATION ×2 (07:26→08:19)
[2019-05-16] MEDS: MethylPREDNISolone 125 MG/2 ML Vial IV (08:06)
--- NOTE | 2019-05-16 08:45 | NURSING ---
DR BARKER FOR DR PILLAI
--- NOTE | 2019-05-16 08:55 | NURSING ---
125 HYPOXIC RESP FAILURE, COPD, [place]
[2019-05-16] MEDS: Metoprolol(XL)Succ 50 MG Tablet PO (11:31)
[2019-05-16] MEDS: 0.9% NaCl Peripheral Flush Adult/Peds IV ×3 (11:31→21:13)
[2019-05-16] MEDS: Ranolazine 500 MG Tablet PO (11:31)
[2019-05-16] MEDS: Furosemide 40 MG/4 ML Vial IV (11:31)
[2019-05-16] MEDS: Enoxaparin 30 MG/0.3 ML Syringe SC (11:31)
--- NOTE | 2019-05-16 12:07 | EKG12_ITS ---
Test Reason : RHYTHM Blood Pressure : / mmHG Vent. Rate : 129 BPM Atrial Rate : 129 BPM P-R Int : 000 ms QRS Dur : 084 ms QT Int : 346 ms P-R-T Axes : 000 032 096 degrees QTc Int : 506 ms Atrial fibrillation with rapid ventricular response with premature ventricular or aberrantly conducte d complexes ST depression, consider subendocardial injury Nonspecific T wave abnormality Abnormal ECG When compared with ECG of 16-MAY-2019 06:30, MANUAL COMPARISON REQUIRED, DATA IS UNCONFIRMED Confirmed by STAN BOOTHE ([id number]), manager editorial FACUNDO MOLINA ([id number]) on 05/19/2019 10:32:56 AM Referred By: HUMZA Confirmed By:STAN BOOTHE
[2019-05-16] MEDS: Metoprolol Tartrate 5 MG/5 ML Vial IV (12:45)
[2019-05-16] MEDS: Metoprolol Tartrate 50 MG Tablet PO (13:31)
--- NOTE | 2019-05-16 18:14 | HP.PCM_ITS ---
History of Present Illness Date of Admission: 05/16/19 Chief Complaint: SOB The patient is a 78 year old F with a PMH as below who presents with shortness of breath that was significantly worse today. She states that she has been having shortness of breath for the last several weeks and was initially on stero ids by her cloth shrinker. They were discontinued about a week and a half ago so she could obtain a flu shot and since that time she has had a steadily worsening in her respiratory status. Today she woke up and became significantly short of breath with ambulation as well as tightness across the chest. She denies any significant chest pain, in the ER her EKG was overall unremarkable with a normal troponin. She does take Lasix at home for lower extremity edema, but she is never been diagnosed with heart failure though she does describe for years now the inability to lay flat because of shortness of breath. On admission she denies any fevers or chills, however lab work in the ER did demonstrate a BNP of 983 with a creatinine of 1.59. She has no leukocytosis Past Medical History Past Medical History (Chronic Problems): Chronic Problems (Last Reviewed 09/19/18 @ 14:01 by NATHANIEL Vargas) COPD with exacerbation (Chronic) Pulmonary hypertension (Chronic) Carotid bruit (Chronic) Non-rheumatic tricuspid valve insufficiency (Chronic) Atherosclerotic heart disease of [place] coronary artery with other forms of angina pectoris (Chronic) COPD (chronic obstructive pulmonary disease) (Chronic) Hypertension (Chronic) SVT (supraventricular tachycardia) (Chronic) CKD (chronic kidney disease), stage III (Chronic) Hyperlipidemia (Chronic) Medical History: Medical History (Last Reviewed 09/19/18 @ 14:01 by NATHANIEL Vargas) Pulmonary hypertension (Chronic) I27.20 Non-rheumatic tricuspid valve insufficiency (Chronic) I36.1 Atherosclerotic heart disease of [place] coronary artery with other forms of angina pectoris (Chronic) I25.118 COPD (chronic obstructive pulmonary disease) (Chronic) J44.9 Hypertension (Chronic) I10 SVT (supraventricular tachycardia) (Chronic) I47.1 CKD (chronic kidney disease), stage III (Chronic) N18.3 Hyperlipidemia (Chronic) E78.5 Cryptogenic organizing pneumonia J84.116 Osteopenia M85.80 Pulmonary nodule R91.1 lymphoid inflammatory process Anxiety F41.9 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 Pulmonary emboli I26.99 RLS (restless legs syndrome) G25.81 Deep vein thrombosis I82.409 Shortness of breath R06.02 Allergies levofloxacin [From Levaquin] Adverse Reaction (Severe, Verified 05/16/19 06:24) Unknown sulfamethoxazole [From Bactrim] Adverse Reaction (Severe, Verified 05/16/19 06:24) Unknown trimethoprim [From Bactrim] Adverse Reaction (Severe, Verified 05/16/19 06:24) Unknown A 'MYCIN' BUT DO NOT REMEMBER Allergy (Uncoded 05/16/19 06:24) Hives Home Medications: Ambulatory Orders Medication Instructions Recorded Tiotropium [place] [Spiriva 18 MCG] 1 puff INHALATION DAILY 10/02/14 Roflumilast [Daliresp] 500 mcg PO DAILY 09/29/15 Atorvastatin Calcium [Lipitor] 20 mg PO QHS 02/14/16 Albuterol Inhaler [Ventolin Hfa] 1 - 2 puff INHALATION Q4H PRN PRN 01/17/17 ALPRAZolam [Xanax] 0.25 mg PO DAILY PRN PRN 03/30/17 Albuterol Aerosols [Ventolin 2.5 mg INHALATION Q6H PRN PRN 09/10/17 Aerosols] cholecalciferol (vitamin D3) 1,000 1,000 unit PO DAILY 07/28/18 unit capsule furosemide 40 mg tablet 40 mg PO QDAY tab 07/28/18 calcium carbonate 600 mg calcium 1,000 mg PO DAILY tab 09/19/18 (1,500 mg) tablet Fluticasone/Salmeterol [Advair 1 puff INHALATION BID 01/26/19 500-50 Diskus] Metoprolol Succinate [Toprol Xl] 50 mg PO QDAY 05/16/19 Ranolazine [Ranexa] 500 mg PO DAILY 05/16/19 Surgical History: Surgical History (Last Reviewed 09/19/18 @ 13:37 by Denisha Jansen) History of appendectomy Z90.49 History of hysterectomy Z90.710 History of left heart catheterization Onset Date: 11/08/14 Z98.890 Hx of cataract surgery Z98.49 S/P bronchoscopy with biopsy Z98.890 Surgical History: appendectomy, hysterectomy Psychiatric History: Anxiety ROLL EDGE STITCHER HAND History: No pertinent ROLL EDGE STITCHER HAND history Lives: Alone Smoking Status: Former smoker Tobacco Use: Cigarettes Alcohol: None Drugs: None - *Family History Maternal Family History: Family History (Last Reviewed 09/19/18 @ 13:37 by Denisha Jansen) Father CAD (coronary artery disease) Myocardial infarction Mother CAD (coronary artery disease) Hypertension Sister CAD (coronary artery disease) Sister Hypertension CHF (congestive heart failure) History Items: Hypertension Paternal Family History: Family History (Last Reviewed 09/19/18 @ 13:37 by Denisha Jansen) Father CAD (coronary artery disease) Myocardial infarction Mother CAD (coronary artery disease) Hypertension Sister CAD (coronary artery disease) Sister Hypertension CHF (congestive heart failure) History Items: Heart Disease - [place] 60s. Review of Systems Constitutional: Denies: Chills, Fever, Weight Change HEENT: Denies: Head Aches, Sinus Congestion, Sinus Drainage Cardiovascular: Reports: Chest Tightness, Orthopnea. Denies: Chest Pain, Palpitations Respiratory: Reports: Shortness of Breath. Denies: Cough, Shortness of breath at rest, Sputum production Gastrointestinal: Denies: Abdominal Pain, Nausea, Vomiting Genitourinary: Denies: Dysuria Musculoskeletal: Denies: Joint Pain, Joint Tenderness Skin: Denies: Rash, Wounds Neurological: Denies: Numbness, Tingling, Focal weakness Psychiatric: Denies: Anxiety, Depression Hematologic/ Lymphatic: Denies: Easy Bruising, Easy Bleeding VTE Information - Inpt Only VTE Present on Admission: No Patient Problems: Active and Suspected Problems (Last Reviewed 09/19/18 @ 14:01 by NATHANIEL Vargas) Acute respiratory failure with hypoxia (Acute) Accelerated hypertension (Acute) Chest pain (Acute) - Physical Exam General: Alert, Oriented x3, Cooperative, No apparent distress HEENT: Atraumatic, PERRLA, EOMI, Normocephalic Oral: Moist Mucosa Neck: Supple, No JVD Lungs: No rhonchi, No rales, Diminished, Wheezes, - - Poor air movement Cardiovascular: Regular rate, Regular Rhythm, Normal S1, Normal S2, No murmurs Abdomen: Soft, Non Tender, Non-Distended, No Hepato-splenomegaly Extremities: No edema, Capillary Refill Less than 3 Seconds Skin: - - She has signs of ecchymosis on her arms and legs, she states that this has been an issue for several years and that other members in her family have this issue. She is not on any antiplatelet medication Neurological: Neuro grossly intact, Sensory exam intact to light touch and pain Psych/Mental Status: Normal Affect, Appropriate Vital Signs Temp Pulse Resp BP Pulse Ox 97.8 F 90 20 H 127/83 H 98 05/16/19 17:00 05/16/19 17:30 05/16/19 17:30 05/16/19 17:30 05/16/19 17:30 Oxygen Flow Rate (L/min) 2 Oxygen Delivery Method Nasal Cannula Weight: 101 lb 10.13 oz Body Mass Index (BMI) 19.2 Intake and Output for Last 24 Hours 05/14/19 05/15/19 05/16/19 23:59 23:59 23:59 Intake Total 698.50 / 698.50 Output Total 300 / 300 Balance 398.50 / 398.50 Laboratory Tests Past 24 Hrs 05/16/19 05/16/19 05/16/19 06:30 06:30 06:30 WBC 7.1 RBC 3.83 L Hgb 12.1 Hct 37.4 MCV 97.7 MCH 31.6 MCHC 32.4 RDW Std Deviation 54.0 H RDW Coeff of Kellie 15.4 H Plt Count 200 MPV 9.3 Immature Gran % (Auto) 0.300 Neut % (Auto) 61.2 Lymph % (Auto) 21.7 [place] % (Auto) 4.1 Eos % (Auto) 12.1 H Baso % (Auto) 0.6 Absolute Neuts (auto) 4.3 Absolute Lymphs (auto) 1.53 Nucleated RBC % 0 Sodium 143 Potassium 4.0 Chloride 111 H Carbon Dioxide 24.0 Anion Gap 8 BUN 27 H Creatinine 1.59 H Estim Creat Clear Calc 22.36 Est GFR (MDRD) Af Amer 40 L Est GFR (MDRD) Non-Af 33 L BUN/Creatinine Ratio 17.0 Glucose 140 H Calcium 8.2 L Troponin I < 0.015 B-Natriuretic Peptide 983.0 H Assessment/Plan All Active Problems (Last Reviewed 09/19/18 @ 14:01 by NATHANIEL Vargas) Acute respiratory failure with hypoxia (Acute) Accelerated hypertension (Acute) Chest pain (Acute) History of steroid therapy (Acute) Acute exacerbation of chronic obstructive pulmonary disease (Resolved) Pneumococcal pneumonia (Resolved) Sepsis (Resolved) 1. Acute hypoxic rest [place] failure secondary to COPD exacerbation/history of cryptogenic organizing pneumonia -Given her cigarette smoking history as well as the fact that she is on albuterol, Advair, Daliresp as well as her Spiriva, I feel like this is more than likely a COPD exacerbation -Chest x-ray did not show any signs of fluid overload and she has no lower extremity edema -Given the elevated BNP and her history of leg edema as well as orthopnea, will also proceed with an echo which I have not seen done in the system previously, as well as the fact that she is also on Ranexa daily -Continue with Solu-Medrol 40 mg IV 3 times daily -IV Lasix 40 mg daily 2. HLD/HTN/tachycardia -EKG demonstrated P waves however she also had signs of PACs and her rate was staying up in the 160s 170s -She had not taken her metoprolol today and therefore that was given to her at around 11:00 this morning, however she still had no response. She is given a dose of IV Lopressor which also brought her rate down temporarily, therefore she was started on a Cardizem drip thinking that this was likely secondary to the albuterol treatments that she has had in the ER and on the floor for her COPD exacerbation -Echo is pending to evaluate for CHF versus pulmonary hypertension, she may just need more aggressive diuresis 3. CKD 3 -Creatinine today on admission is 1.59 which is a little bit higher than her baseline of 1.4 -We will continue to monitor while being diuresed DVT: Lovenox Code Visit Inpatient E&M: 27443 Init Hosp L3
[2019-05-16] MEDS: Atorvastatin Calcium 20 MG Tablet PO (21:12)
[2019-05-16] MEDS: Acetaminophen 325 MG Tablet 650 MG PO (22:08)
[2019-05-17] VITALS (13 sets, daily range): BP systolic 139–153; BP diastolic 72–92; PULSE 79–128; RESP 14–20; TEMP 36.6–36.8; O2SAT 84–100
[2019-05-17 06:44] LABS: Absolute Lymphocyte Count 0.51 X10^3/uL (0.83-4.51); Absolute Neutrophil Count 7.2 X10^3/uL (2.0-7.7); Eosinophil# 0.01 X10^3/uL; Eosinophils% 0.1 % (0-5); Hematocrit 33.9 % (37-47); Lymphocyte # 0.51 X10^3/ul (4.0); Lymphocyte % 6.5 % (19-41); Mean Corp Hgb Conc 32.4 g/dL (32-36); Mean Corpuscular Hgb 31.4 pg (27.0-32.0); Mean Corpuscular Volume 96.9 fL (81-99); Mean Platelet Vol. 9.4 fl (6.2-12.0); Monocyte# 0.13 X10^3/uL; Monocyte% 1.7 % (0-10); NRBC Flagged by Analyzer 0 % (0-5); Neutrophil # 7.18 X10^3/uL (2.7-7.7); Neutrophil % 91.4 % (47-70); POSITIVE DIFFERENTIAL YES; Platelet Count 209 K/mm3 (150-450); RBC Distribution Width CV 15.6 % (11.6-14.6); RBC Distribution Width SD 54.2 fl (35.1-43.9); White Blood Count 7.9 K/mm3 (4.4-11.0)
[2019-05-17 06:48] LABS: Differential Indicated SCAN CRITERIA MET
[2019-05-17 07:06] LABS: Anion Gap 7 (5-15); BUN 32 mg/dL (7-18); BUN/Creat Ratio 20.6 RATIO (10-20); Calcium,Total 8.7 mg/dL (8.5-10.1); Chloride 105 mmol/L (98-107); Creatinine, Serum 1.55 mg/dL (0.55-1.02); EST Glomerular Filtration Rate 34 mL/min (>60); Est Glom Filt Rate - Afr Amer 42 mL/min (>60); Glucose 146 mg/dL (74-106); Potassium 4.4 mmol/L (3.5-5.1); Sodium Level 139 mmol/L (136-145)
[2019-05-17] MEDS: Ipratropium/Albuterol Sulfate 3 ML AMPUL.NEB INHALATION ×4 (07:08→19:30)
[2019-05-17] MEDS: Metoprolol(XL)Succ 50 MG Tablet PO (08:57)
[2019-05-17] MEDS: Ranolazine 500 MG Tablet PO (08:57)
[2019-05-17] MEDS: Enoxaparin 30 MG/0.3 ML Syringe SC (08:57)
[2019-05-17] MEDS: Furosemide 40 MG/4 ML Vial IV (08:57)
[2019-05-17] MEDS: 0.9% NaCl Peripheral Flush Adult/Peds IV ×2 (09:00→13:07)
--- NOTE | 2019-05-17 13:17 | CASEMGMT ---
ANTHONY KRISHNA SIMULATION ENGINEER CM to room to meet with patient for initial transition planning/care coordination assessment. ANTHONY KRISHNA introduced self and role at [facility]. Pt voices understanding and consents to assessment at this time. Pt sitting up in recliner chair in room in no distress at this time. Daughter @ bedside. Pt is A/O at this time and answers all questions appropriately. Care providers, pharmacy, and demographics verified at this time. PCP: Dr Jai Morales Specialists: Dr Mathis--pulmonology, Dr Montero--cardiology, Regional Marketing Director--does not remember name Preferred [facility]acy: [facility] Insurance: Ai ZAPIEN Prescription Benefit: Yes Living Will/HPOA: does not have LW or HCPOA . Interested in more information but states does not want to talk with SW at this time to complete paperwork. Provided information on advanced directives and given Social Service rac card with number to call if chooses in the future to utilize [facility] social work for advanced directive completion. Educated patient that, if patient so chooses, can come back to [facility] and meet with a SW as an outpatient to complete health care advanced directives. Patient and daughter voice understanding. LNOK: , 4 adult children Living Arrangements: Lives w/her and son in 2-story home. FFSU. 2 steps to enter home. assists pt w/bathing. Pt independent w/dressing, does the cooking, med mgmt and appts, and laundry. and pt share housecleaning. Son does grocery shopping. Transportation: Son. Denies having transportation concerns. Daughter also available if needed. DME: States has the following DME: nebulizer--states it is working properly. Does not have home O2. Pt may need home oxygen @ D/C. Pt/daughter given list of local DME companies. Agreeable to [employer]. Pt states no need for further DME at this time. HHC/SNF: No history of either and denies needs. Discussed OP therapy. Pt states she feels she does not need at this time. Pt and dtr made aware if she decides in the future she is interested in OP therapy or HHC to discuss with her PCP. They voice understanding. Pt wishes to return home and states has no concerns with going home at time of discharge. P CM to follow for home oxygen needs and any further discharge planning/needs. Pt/dtr voice no further concerns/needs at this time. Advised them to ask for CM if any further questions/concerns/needs arise. They voice understanding. PLAN: Home w/family support and discharge plans in place. May need Home Oxygen testing completed prior to discharge. Ann Marie BSN RN CM
--- NOTE | 2019-05-17 14:22 | PCM.PN.HOSP ---
Patient Problems: Active and Suspected Problems (Last Reviewed 09/19/18 @ 14:01 by NATHANIEL Vargas) Acute respiratory failure with hypoxia (Acute) Accelerated hypertension (Acute) Chest pain (Acute) Subjective: Also she is breathing little bit better, no issues overnight. Vitals/I&O's: Vital Signs Temp Pulse Resp BP Pulse Ox 98.3 F 102 H 16 139/79 H 95 05/17/19 09:00 05/17/19 11:09 05/17/19 11:09 05/17/19 09:00 05/17/19 09:00 Oxygen Flow Rate (L/min) 1 Oxygen Delivery Method Nasal Cannula Weight: 103 lb 6.349 oz Body Mass Index (BMI) 19.2 Intake and Output for Last 24 Hours 05/15/19 05/16/19 05/17/19 23:59 23:59 23:59 Intake Total 944.92 / 944.92 420 / 420 Output Total 300 / 300 650 / 650 Balance 644.92 / 644.92 -230 / -230 General: Alert, Oriented x3, Cooperative, No apparent distress HEENT: Atraumatic, PERRLA, EOMI, Normocephalic Oral: Moist Mucosa Neck: Supple, No JVD Lungs: No rhonchi, No rales, Diminished, Wheezes, - - Poor air movement Cardiovascular: Regular rate, Regular Rhythm, Normal S1, Normal S2, No murmurs Abdomen: Soft, Non Tender, Non-Distended, No Hepato-splenomegaly Extremities: No edema, Capillary Refill Less than 3 Seconds Skin: - - She has signs of ecchymosis on her arms and legs, she states that this has been an issue for several years and that other members in her family have this issue. She is not on any antiplatelet medication Neurological: Neuro grossly intact, Sensory exam intact to light touch and pain Psych/Mental Status: Normal Affect, Appropriate Laboratory Results 05/17/19 06:08: WBC 7.9, RBC 3.50 L, Hgb 11.0 L, Hct 33.9 L, MCV 96.9, MCH 31.4, MCHC 32.4, RDW Std Deviation 54.2 H, RDW Coeff of Kellie 15.6 H, Plt Count 209, MPV 9.4, Immature Gran % (Auto) 0.300, Neut % (Auto) 91.4 H, Lymph % (Auto) 6.5 L, [place] % (Auto) 1.7, Eos % (Auto) 0.1, Baso % (Auto) 0.0, Absolute Neuts (auto) 7.2, Absolute Lymphs (auto) 0.51 L, Nucleated RBC % 0, Differential Comment COMMENT 05/17/19 06:08: Sodium 139, Potassium 4.4, Chloride 105, Carbon Dioxide 27.0, Anion Gap 7, BUN 32 H, Creatinine 1.55 H, Estim Creat Clear Calc 22.50, Est GFR (MDRD) Af Amer 42 L, Est GFR (MDRD) Non-Af 34 L, BUN/Creatinine Ratio 20.6 H, Glucose 146 H, Calcium 8.7 Current Medications Acetaminophen (Tylenol) 650 mg PO Q6H PRN PRN PRN Reason: Non-cardiac pain (mod-severe) Last Admin: 05/16/19 22:08 Dose: 650 mg Documented by: Al Hydroxide/Mg Hydroxide (Mylanta Ii) 15 - 30 ml PO Q4H PRN PRN PRN Reason: INDIGESTION Albuterol Sulfate (Ventolin Aerosols) 2.5 mg INHALATION Q2H PRN PRN PRN Reason: dyspnea, wheezing Albuterol/Ipratropium (Duoneb) 3 ml INHALATION Q4HWA.RT [facility] Last Admin: 05/17/19 11:08 Dose: 3 ml Documented by: Atorvastatin Calcium (Lipitor) 20 mg PO QHS [facility] Last Admin: 05/16/19 21:12 Dose: 20 mg Documented by: Enoxaparin Sodium (Lovenox) 30 mg SC DAILY@1000 [facility] Last Admin: 05/17/19 08:57 Dose: 30 mg Documented by: Furosemide (Lasix) 40 mg IV DAILY [facility] Last Admin: 05/17/19 08:57 Dose: 40 mg Documented by: Hydralazine HCl (Apresoline Iv) 10 mg IV Q4H PRN PRN PRN Reason: SBP > 160 Magnesium Hydroxide (Milk Of Magnesia) 30 ml PO DAILY PRN PRN Reason: Constipation Methylprednisolone (Solu-Medrol) 40 mg IV Q8 [facility] Last Admin: 05/17/19 13:07 Dose: 40 mg Documented by: Metoprolol Succinate (Toprol Xl (Beta Megan)) 50 mg PO DAILY [facility] Last Admin: 05/17/19 08:57 Dose: 50 mg Documented by: Nutritional Formula (Lactose Free) (Ensure Enlive) 120 ml PO 4X/DAY [facility] Last Admin: 05/17/19 13:07 Dose: 120 ml Documented by: Ondansetron HCl (Zofran) 4 mg IV Q8H PRN PRN PRN Reason: NAUSEA/VOMITING Ranolazine (Ranexa) 500 mg PO DAILY [facility] Last Admin: 05/17/19 08:57 Dose: 500 mg Documented by: Sodium Chloride () 5 - 15 ml IV UD PRN PRN Reason: SALINE FLUSH Last Admin: 05/17/19 13:07 Dose: 10 ml Documented by: STROKE Vital Signs/Narrative: Vital Signs Pulse Resp 05/17/19 11:09 102 H 16 Medical Necessity - Tobacco Use Smoking Status: Former smoker Tobacco Use: Cigarettes Assessment/Plan All Active Problems (Last Reviewed 09/19/18 @ 14:01 by NATHANIEL Vargas) Acute respiratory failure with hypoxia (Acute) Accelerated hypertension (Acute) Chest pain (Acute) History of steroid therapy (Acute) Acute exacerbation of chronic obstructive pulmonary disease (Resolved) Pneumococcal pneumonia (Resolved) Sepsis (Resolved) 1. Acute hypoxic respiratory failure secondary to COPD exacerbation/history of cryptogenic organizing pneumonia -Given her cigarette smoking history as well as the fact that she is on albuterol, Advair, Daliresp as well as her Spiriva, I feel like this is more than likely a COPD exacerbation -Chest x-ray did not show any signs of fluid overload and she has no lower extremity edema -Given the elevated BNP and her history of leg edema as well as orthopnea, will also proceed with an echo which I have not seen done in the system previously, as well as the fact that she is also on Ranexa daily -Continue with Solu-Medrol 40 mg IV 3 times daily -IV Lasix 40 mg daily 2. HLD/HTN/tachycardia -EKG demonstrated P waves however she also had signs of PACs and her rate was staying up in the 160s 170s -Heart rate is much better controlled today, she is not on a Cardizem drip -Seed with echo -Echo is pending to evaluate for CHF versus pulmonary hypertension, she may just need more aggressive diuresis 3. CKD 3 -Creatinine on admission is 1.59 which is a little bit higher than her baseline of 1.4 -We will continue to monitor while being diuresed DVT: Jakub Code Visit Inpatient E&M: 34884 Subs Hosp L2
[2019-05-17] MEDS: Atorvastatin Calcium 20 MG Tablet PO (21:50)
[2019-05-18] VITALS (22 sets, daily range): BP systolic 93–164; BP diastolic 61–77; PULSE 70–193; RESP 16–20; TEMP 36.5–36.9; O2SAT 91–98
[2019-05-18] MEDS: dilTIAZem 25 MG/5 ML Vial 10 MG IV BOLUS ×2 (00:13→07:23)
--- NOTE | 2019-05-18 05:15 | NURSING ---
Assumed care of pt at this time.
[2019-05-18] MEDS: 0.9% NaCl Peripheral Flush Adult/Peds IV ×7 (05:41→20:59)
[2019-05-18] MEDS: Ipratropium/Albuterol Sulfate 3 ML AMPUL.NEB INHALATION ×4 (07:25→18:47)
[2019-05-18] MEDS: predniSONE 20 MG Tablet 40 MG PO (08:22)
[2019-05-18] MEDS: Ranolazine 500 MG Tablet PO (08:23)
[2019-05-18] MEDS: Metoprolol(XL)Succ 50 MG Tablet PO (08:23)
[2019-05-18] MEDS: Enoxaparin 30 MG/0.3 ML Syringe SC (08:23)
[2019-05-18] MEDS: Furosemide 40 MG/4 ML Vial IV ×2 (08:23→17:16)
[2019-05-18] MEDS: Metoprolol(XL)Succ 25 MG Tablet PO (10:14)
--- NOTE | 2019-05-18 15:51 | CT_ITS ---
STUDY: CTA CHEST REASON FOR EXAM: Female, 78 years old. Hypoxia COPD RADIATION DOSAGE (If Supplied By Facility): CTDIvol = ( 6.49 ) mGy, DLP = ( 133.99 ) mGycm TECHNIQUE: The examination was performed with the intravenous administration of IV Isovue 370 100. Post-processing of the angiographic images was performed, with multiplanar reformation and 3D reconstruction. Individualized dose optimization techniques were used for this CT. COMPARISON: None. FINDINGS: Normal enhancement of the main pulmonary artery and right and left pulmonary arteries. Normal enhancement of the bilateral peripheral pulmonary arteries. There is no demonstrated pulmonary embolism. Atherosclerotic changes of the aorta without evidence for aneurysm. There is no demonstrated aortic dissection. Heart is normal size. There is calcification of the coronary arteries and aortic valve leaflets. Normal mediastinum. Normal hilar regions. Normal visualized trachea and bronchi. The lungs are well expanded. There is diffuse interstitial thickening with centrilobular emphysematous changes more severe in the mid and upper lung hercules. There is mild bilateral thickening of the saul of the bronchi in the lower lobes There is pleural parenchymal scarring in the right upper lobe. There is a tiny 3 to 4 mm nodular density in the right lower lobe No pleural effusion or pneumothorax Normal chest wall structures. Dorsal spine demonstrates moderate spondylosis. Moderate-sized hiatal hernia is noted There is a cyst in the right lobe of the liver CT/CTA Chest W/WO Contrast IMPRESSION: ASHD and existing COPD.. No evidence for pulmonary embolus Electronically Signed: Jefry Nascimento MD at 17:02 EDT , Service support ,
--- NOTE | 2019-05-18 16:58 | PCM.PN.HOSP ---
Patient Problems: Active and Suspected Problems (Last Reviewed 09/19/18 @ 14:01 by NATHANIEL Vargas) Acute respiratory failure with hypoxia (Acute) Accelerated hypertension (Acute) Chest pain (Acute) Subjective: She had 2 more episodes of tachycardia last night necessitating Cardizem boluses, she is breathing a bit better today and is currently on room air. Vitals/I&O's: Vital Signs Temp Pulse Resp BP Pulse Ox 98.4 F 81 20 H 100/61 94 05/18/19 14:20 05/18/19 15:27 05/18/19 15:27 05/18/19 14:20 05/18/19 14:20 Oxygen Flow Rate (L/min) 1 Oxygen Delivery Method Room Air Weight: 103 lb 6.349 oz Body Mass Index (BMI) 19.2 Intake and Output for Last 24 Hours 05/16/19 05/17/19 05/18/19 23:59 23:59 23:59 Intake Total 944.92 / 944.92 1210 / 1210 240 / 240 Output Total 300 / 300 1700 / 1700 200 / 200 Balance 644.92 / 644.92 -490 / -490 40 / 40 General: Alert, Oriented x3, Cooperative, No apparent distress HEENT: Atraumatic, PERRLA, EOMI, Normocephalic Oral: Moist Mucosa Neck: Supple, No JVD Lungs: No rhonchi, No rales, Diminished, Wheezes, - - Poor air movement Cardiovascular: Regular rate, Regular Rhythm, Normal S1, Normal S2, No murmurs Abdomen: Soft, Non Tender, Non-Distended, No Hepato-splenomegaly Extremities: No edema, Capillary Refill Less than 3 Seconds Skin: - - She has signs of ecchymosis on her arms and legs, she states that this has been an issue for several years and that other members in her family have this issue. She is not on any antiplatelet medication Neurological: Neuro grossly intact, Sensory exam intact to light touch and pain Psych/Mental Status: Normal Affect, Appropriate Current Medications Acetaminophen (Tylenol) 650 mg PO Q6H PRN PRN PRN Reason: Non-cardiac pain (mod-severe) Last Admin: 05/16/19 22:08 Dose: 650 mg Documented by: Al Hydroxide/Mg Hydroxide (Mylanta Ii) 15 - 30 ml PO Q4H PRN PRN PRN Reason: INDIGESTION Albuterol Sulfate (Ventolin Aerosols) 2.5 mg INHALATION Q2H PRN PRN PRN Reason: dyspnea, wheezing Albuterol/Ipratropium (Duoneb) 3 ml INHALATION Q4HWA.RT [facility] Last Admin: 05/18/19 15:27 Dose: 3 ml Documented by: Atorvastatin Calcium (Lipitor) 20 mg PO QHS [facility] Last Admin: 05/17/19 21:50 Dose: 20 mg Documented by: Diltiazem HCl (Cardizem) 30 mg PO Q6 [facility] Enoxaparin Sodium (Lovenox) 30 mg SC DAILY@1000 [facility] Last Admin: 05/18/19 08:23 Dose: 30 mg Documented by: Furosemide (Lasix) 40 mg IV BID@1000,1800 [facility] Hydralazine HCl (Apresoline Iv) 10 mg IV Q4H PRN PRN PRN Reason: SBP > 160 Magnesium Hydroxide (Milk Of Magnesia) 30 ml PO DAILY PRN PRN Reason: Constipation Nutritional Formula (Lactose Free) (Ensure Enlive) 120 ml PO 4X/DAY [facility] Last Admin: 05/18/19 14:42 Dose: 120 ml Documented by: Ondansetron HCl (Zofran) 4 mg IV Q8H PRN PRN PRN Reason: NAUSEA/VOMITING Prednisone () 40 mg PO DAILY@0800 [facility] Last Admin: 05/18/19 08:22 Dose: 40 mg Documented by: Ranolazine (Ranexa) 500 mg PO DAILY [facility] Last Admin: 05/18/19 08:23 Dose: 500 mg Documented by: Sodium Chloride () 5 - 15 ml IV UD PRN PRN Reason: SALINE FLUSH Last Admin: 05/18/19 08:23 Dose: 10 ml Documented by: STROKE Vital Signs/Narrative: Vital Signs Temp Pulse Resp BP Pulse Ox 05/18/19 15:27 81 20 H 05/18/19 14:49 128 H 05/18/19 14:20 98.4 F 129 H 20 H 100/61 94 Medical Necessity - Tobacco Use Smoking Status: Former smoker Tobacco Use: Cigarettes Assessment/Plan All Active Problems (Last Reviewed 09/19/18 @ 14:01 by NATHANIEL Vargas) Acute respiratory failure with hypoxia (Acute) Accelerated hypertension (Acute) Chest pain (Acute) History of steroid therapy (Acute) Acute exacerbation of chronic obstructive pulmonary disease (Resolved) Pneumococcal pneumonia (Resolved) Sepsis (Resolved) 1. Acute hypoxic respiratory failure secondary to COPD exacerbation/history of cryptogenic organizing pneumonia -Given her cigarette smoking history as well as the fact that she is on albuterol, Advair, Daliresp as well as her Spiriva, I feel like this is more than likely a COPD exacerbation -Chest x-ray did not show any signs of fluid overload and she has no lower extremity edema -Echo shows a significant increase in her pulmonary pressures from 54 2 years ago to 84. Because of her sudden increase in her pulmonary pressures as well as her continued tachycardia, will obtain a CTA of her chest for PE. Also given the significant increase in her pulmonary pressures, will increase her diuresis from 40 mg daily to 40 mg twice daily -Continue with prednisone daily -IV Lasix 40 mg twice daily 2. HLD/HTN/tachycardia -EF on the echo was 65% with significant pulmonary hypertension to 84 mmHg -We will transition metoprolol to Cardizem 30 mg p.o. 4 times daily, review of the EKG is demonstrate potential multifocal atrial tachycardia -We will consult cardiology to evaluate patient 3. CKD 3 -Creatinine on admission is 1.59 which is a little bit higher than her baseline of 1.4 -We will continue to monitor while being diuresed DVT: Lovenox Code Visit Inpatient E&M: 86289 Subs Hosp L2
[2019-05-18] MEDS: dilTIAZem 30 MG Tablet PO (17:16)
[2019-05-18] MEDS: dilTIAZem 25 MG/5 ML Vial 20 MG IV BOLUS (20:59)
[2019-05-18] MEDS: Atorvastatin Calcium 20 MG Tablet PO (21:03)
[2019-05-19] VITALS (16 sets, daily range): BP systolic 114–156; BP diastolic 65–96; PULSE 78–140; RESP 18–20; TEMP 36.4–37.3; O2SAT 92–93
[2019-05-19] MEDS: dilTIAZem 30 MG Tablet PO ×2 (00:35→05:20)
[2019-05-19] MEDS: Albuterol 2.5 MG/3 ML VIAL.NEB. INHALATION ×2 (05:35→16:50)
[2019-05-19 06:18] LABS: Absolute Lymphocyte Count 0.82 X10^3/uL (0.83-4.51); Absolute Neutrophil Count 9.2 X10^3/uL (2.0-7.7); Basophil# 0.02 X10^3/uL; Basophil% 0.2 % (0-1); Hematocrit 38.4 % (37-47); Hemoglobin 12.3 g/dL (12.0-15.0); Lymphocyte # 0.82 X10^3/ul (4.0); Lymphocyte % 7.6 % (19-41); Mean Corpuscular Hgb 31.1 pg (27.0-32.0); Mean Platelet Vol. 9.1 fl (6.2-12.0); Monocyte# 0.66 X10^3/uL; Monocyte% 6.1 % (0-10); NRBC Flagged by Analyzer 0 % (0-5); Neutrophil # 9.18 X10^3/uL (2.7-7.7); Neutrophil % 85.1 % (47-70); Platelet Count 267 K/mm3 (150-450); RBC Distribution Width CV 15.9 % (11.6-14.6); Red Blood Count 3.96 M/mm3 (4.2-5.4); White Blood Count 10.8 K/mm3 (4.4-11.0)
[2019-05-19 06:38] LABS: Anion Gap 9 (5-15); BUN 47 mg/dL (7-18); BUN/Creat Ratio 25.1 RATIO (10-20); Calcium,Total 8.8 mg/dL (8.5-10.1); Chloride 103 mmol/L (98-107); Creatinine, Serum 1.87 mg/dL (0.55-1.02); EST Glomerular Filtration Rate 28 mL/min (>60); Est Glom Filt Rate - Afr Amer 34 mL/min (>60); Estimated Creatinine Clearance 18.65 ml/min; Glucose 113 mg/dL (74-106); Potassium 3.4 mmol/L (3.5-5.1); Sodium Level 141 mmol/L (136-145)
[2019-05-19] MEDS: Ipratropium/Albuterol Sulfate 3 ML AMPUL.NEB INHALATION ×3 (07:06→18:53)
--- NOTE | 2019-05-19 09:31 | PCM.PN.HOSP ---
Patient Problems: Active and Suspected Problems (Last Reviewed 09/19/18 @ 14:01 by NATHANIEL Vargas) Acute respiratory failure with hypoxia (Acute) Accelerated hypertension (Acute) Chest pain (Acute) Subjective: Better and states that she seems to be able to ambulate a little bit further without getting significantly short of breath. No issues overnight. Vitals/I&O's: Vital Signs Temp Pulse Resp BP Pulse Ox 99.1 F 88 20 H 139/96 H 93 05/19/19 05:14 05/19/19 07:06 05/19/19 07:06 05/19/19 05:14 05/19/19 07:06 Oxygen Flow Rate (L/min) 1 Oxygen Delivery Method Room Air Weight: 103 lb 6.349 oz Body Mass Index (BMI) 19.2 Intake and Output for Last 24 Hours 05/17/19 05/18/19 05/19/19 23:59 23:59 23:59 Intake Total 1210 / 1210 580 / 580 Output Total 1700 / 1700 1200 / 1200 300 / 300 Balance -490 / -490 -620 / -620 -300 / -300 General: Alert, Oriented x3, Cooperative, No apparent distress HEENT: Atraumatic, PERRLA, EOMI, Normocephalic Oral: Moist Mucosa Neck: Supple, No JVD Lungs: rhonchi, No rales, Diminished, Wheezes, - -air movement has improved Cardiovascular: Regular rate, Regular Rhythm, Normal S1, Normal S2, No murmurs Abdomen: Soft, Non Tender, Non-Distended, No Hepato-splenomegaly Extremities: No edema, Capillary Refill Less than 3 Seconds Skin: - - She has signs of ecchymosis on her arms and legs, she states that this has been an issue for several years and that other members in her family have this issue. She is not on any antiplatelet medication Neurological: Neuro grossly intact, Sensory exam intact to light touch and pain Psych/Mental Status: Normal Affect, Appropriate Laboratory Results 05/19/19 06:04: WBC 10.8, RBC 3.96 L, Hgb 12.3, Hct 38.4, MCV 97.0, MCH 31.1, MCHC 32.0, RDW Std Deviation 54.0 H, RDW Coeff of Kellie 15.9 H, Plt Count 267, MPV 9.1, Immature Gran % (Auto) 1.000 H, Neut % (Auto) 85.1 H, Lymph % (Auto) 7.6 L, [place] % (Auto) 6.1, Eos % (Auto) 0.0, Baso % (Auto) 0.2, Absolute Neuts (auto) 9.2 H, Absolute Lymphs (auto) 0.82 L, Nucleated RBC % 0 05/19/19 06:04: Sodium 141, Potassium 3.4 L, Chloride 103, Carbon Dioxide 29.0, Anion Gap 9, BUN 47 H, Creatinine 1.87 H, Estim Creat Clear Calc 18.65, Est GFR (MDRD) Af Amer 34 L, Est GFR (MDRD) Non-Af 28 L, BUN/Creatinine Ratio 25.1 H, Glucose 113 H, Calcium 8.8 Current Medications Acetaminophen (Tylenol) 650 mg PO Q6H PRN PRN PRN Reason: Non-cardiac pain (mod-severe) Last Admin: 05/16/19 22:08 Dose: 650 mg Documented by: Al Hydroxide/Mg Hydroxide (Mylanta Ii) 15 - 30 ml PO Q4H PRN PRN PRN Reason: INDIGESTION Albuterol Sulfate (Ventolin Aerosols) 2.5 mg INHALATION Q2H PRN PRN PRN Reason: dyspnea, wheezing Last Admin: 05/19/19 05:35 Dose: 2.5 mg Documented by: Albuterol/Ipratropium (Duoneb) 3 ml INHALATION Q4HWA.RT [facility] Last Admin: 05/19/19 07:06 Dose: 3 ml Documented by: Atorvastatin Calcium (Lipitor) 20 mg PO QHS [facility] Last Admin: 05/18/19 21:03 Dose: 20 mg Documented by: Diltiazem HCl (Cardizem) 30 mg PO Q6 [facility] Last Admin: 05/19/19 05:20 Dose: 30 mg Documented by: Enoxaparin Sodium (Lovenox) 30 mg SC DAILY@1000 [facility] Last Admin: 05/18/19 08:23 Dose: 30 mg Documented by: Furosemide (Lasix) 40 mg IV BID@1000,1800 [facility] Last Admin: 05/18/19 17:16 Dose: 40 mg Documented by: Hydralazine HCl (Apresoline Iv) 10 mg IV Q4H PRN PRN PRN Reason: SBP > 160 Magnesium Hydroxide (Milk Of Magnesia) 30 ml PO DAILY PRN PRN Reason: Constipation Nutritional Formula (Lactose Free) (Ensure Enlive) 120 ml PO 4X/DAY [facility] Last Admin: 05/18/19 21:02 Dose: Not Given Documented by: Ondansetron HCl (Zofran) 4 mg IV Q8H PRN PRN PRN Reason: NAUSEA/VOMITING Prednisone () 40 mg PO DAILY@0800 [facility] Last Admin: 05/18/19 08:22 Dose: 40 mg Documented by: Ranolazine (Ranexa) 500 mg PO DAILY [facility] Last Admin: 05/18/19 08:23 Dose: 500 mg Documented by: Sodium Chloride () 5 - 15 ml IV UD PRN PRN Reason: SALINE FLUSH Last Admin: 05/18/19 20:59 Dose: 5 ml Documented by: STROKE Vital Signs/Narrative: Vital Signs Pulse Resp Pulse Ox 05/19/19 07:06 88 20 H 93 05/19/19 06:59 93 05/19/19 05:35 94 18 Medical Necessity - Tobacco Use Smoking Status: Former smoker Tobacco Use: Cigarettes Assessment/Plan All Active Problems (Last Reviewed 09/19/18 @ 14:01 by NATHANIEL Vargas) Acute respiratory failure with hypoxia (Acute) Accelerated hypertension (Acute) Chest pain (Acute) History of steroid therapy (Acute) Acute exacerbation of chronic obstructive pulmonary disease (Resolved) Pneumococcal pneumonia (Resolved) Sepsis (Resolved) 1. Acute hypoxic respiratory failure secondary to COPD exacerbation/history of cryptogenic organizing pneumonia -Given her cigarette smoking history as well as the fact that she is on albuterol, Advair, Daliresp as well as her Spiriva, I feel like this is more than likely a COPD exacerbation -Chest x-ray did not show any signs of fluid overload and she has no lower extremity edema -Echo shows a significant increase in her pulmonary pressures from 54, 2 years ago, to 84. CTA of the chest was negative for PE. Also given the significant increase in her pulmonary pressures, will increase her diuresis from 40 mg daily to 40 mg twice daily -Continue with prednisone daily -IV Lasix 40 mg twice daily 2. HLD/HTN/tachycardia -EF on the echo was 65% with significant pulmonary hypertension to 84 mmHg -We will transition metoprolol to Cardizem 30 mg p.o. 4 times daily, review of the EKG is demonstrate potential multifocal atrial tachycardia -We will consult cardiology to evaluate patient 3. CKD 3 with RAUL -Creatinine on admission is 1.59 which is a little bit higher than her baseline of 1.4, currently 1.87 -We will continue to monitor while being diuresed DVT: Kalynx Code Visit Inpatient E&M: 45962 Subs Hosp L2
[2019-05-19] MEDS: predniSONE 20 MG Tablet 40 MG PO (10:12)
[2019-05-19] MEDS: 0.9% NaCl Peripheral Flush Adult/Peds IV (10:12)
[2019-05-19] MEDS: Furosemide 40 MG/4 ML Vial IV (10:12)
[2019-05-19] MEDS: Ranolazine 500 MG Tablet PO (10:12)
[2019-05-19] MEDS: Enoxaparin 30 MG/0.3 ML Syringe SC (10:12)
[2019-05-19] MEDS: dilTIAZem 60 MG Tablet PO ×3 (11:58→23:10)
--- NOTE | 2019-05-19 15:33 | PCM.CONS.C ---
Problem List (1) Tachycardia Status: Acute Reason for Consult Date of Consultation: 05/19/19 History of Present Illness: The patient is a 78 year old F with a PMH as below who presents with shortness of breath. She states that she has been having shortness of breath for the last several weeks and was initially on steroids by her container filler. They were discontinued about a week and a half ago so she could obtain a flu shot and since that time she has had a steadily worsening in her respiratory status. She is being treated for COPD exacerbation and has been slowly improving. We were consulted because she was found to have tachycardia irregular heart rate. Review of systems: All systems reviewed. All else is negative except that in the HPI. Past Medical History Allergies/Adverse Reactions: Allergies levofloxacin [From Levaquin] Adverse Reaction (Severe, Verified 05/16/19 06:24) Unknown sulfamethoxazole [From Bactrim] Adverse Reaction (Severe, Verified 05/16/19 06:24) Unknown trimethoprim [From Bactrim] Adverse Reaction (Severe, Verified 05/16/19 06:24) Unknown A 'MYCIN' BUT DO NOT REMEMBER Allergy (Uncoded 05/16/19 06:24) Hives Home Medications: Ambulatory Orders Medication Instructions Recorded Tiotropium [place] [Spiriva 18 MCG] 1 puff INHALATION DAILY 10/02/14 Roflumilast [Daliresp] 500 mcg PO DAILY 09/29/15 Atorvastatin Calcium [Lipitor] 20 mg PO QHS 02/14/16 Albuterol Inhaler [Ventolin Hfa] 1 - 2 puff INHALATION Q4H PRN PRN 01/17/17 ALPRAZolam [Xanax] 0.25 mg PO DAILY PRN PRN 03/30/17 Albuterol Aerosols [Ventolin 2.5 mg INHALATION Q6H PRN PRN 09/10/17 Aerosols] cholecalciferol (vitamin D3) 1,000 1,000 unit PO DAILY 07/28/18 unit capsule furosemide 40 mg tablet 40 mg PO QDAY tab 07/28/18 calcium carbonate 600 mg calcium 1,000 mg PO DAILY tab 09/19/18 (1,500 mg) tablet Fluticasone/Salmeterol [Advair 1 puff INHALATION BID 01/26/19 500-50 Diskus] Metoprolol Succinate [Toprol Xl] 50 mg PO QDAY 05/16/19 Ranolazine [Ranexa] 500 mg PO DAILY 05/16/19 Past Medical History (Chronic Problems): Chronic Problems (Last Reviewed 09/19/18 @ 14:01 by NATHANIEL Vargas) COPD with exacerbation (Chronic) Pulmonary hypertension (Chronic) Carotid bruit (Chronic) Non-rheumatic tricuspid valve insufficiency (Chronic) Atherosclerotic heart disease of 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 MANAGEMENT SUPERVISOR history - *Family History Maternal Family History: Family History (Last Reviewed 09/19/18 @ 13:37 by Denisha Jansen) Father CAD (coronary artery disease) Myocardial infarction Mother CAD (coronary artery disease) Hypertension Sister CAD (coronary artery disease) Sister Hypertension CHF (congestive heart failure) History Items: Hypertension Paternal Family History: Family History (Last Reviewed 09/19/18 @ 13:37 by Denisha Jansen) Father CAD (coronary artery disease) Myocardial infarction Mother CAD (coronary artery disease) Hypertension Sister CAD (coronary artery disease) Sister Hypertension CHF (congestive heart failure) History Items: Heart Disease - [place] 60s. Lives: Alone Smoking Status: Former smoker Tobacco Use: Cigarettes Alcohol: None Drugs: None Objective: Vital Signs Temp Pulse Resp BP Pulse Ox 98.1 F 140 H 20 H 146/92 H 92 05/19/19 10:10 05/19/19 14:59 05/19/19 11:26 05/19/19 10:10 05/19/19 10:10 Oxygen Flow Rate (L/min) 1 Oxygen Delivery Method Room Air Weight: 103 lb 6.349 oz Body Mass Index (BMI) 19.2 Intake and Output for Last 24 Hours 05/17/19 05/18/19 05/19/19 23:59 23:59 23:59 Intake Total 1210 / 1210 580 / 580 280 / 280 Output Total 1700 / 1700 1200 / 1200 700 / 700 Balance -490 / -490 -620 / -620 -420 / -420 General: Awake, Alert, Oriented x 3 HEENT: Atraumatic Oral: Moist Mucosa Neck: Supple Lungs: Expiratory Wheezes-Earl Cardiovascular: Irregular Rhythm Abdomen: Soft Extremities: No edema Skin: No Rashes Psych/Mental Status: Appropriate 05/19/19 06:04: WBC 10.8, RBC 3.96 L, Hgb 12.3, Hct 38.4, MCV 97.0, MCH 31.1, MCHC 32.0, Plt Count 267, MPV 9.1, Immature Gran % (Auto) 1.000 H, Neut % (Auto) 85.1 H, Lymph % (Auto) 7.6 L, [place] % (Auto) 6.1, Eos % (Auto) 0.0, Baso % (Auto) 0.2, Absolute Neuts (auto) 9.2 H, Nucleated RBC % 0 05/19/19 06:04: Sodium 141, Potassium 3.4 L, Chloride 103, Carbon Dioxide 29.0, Anion Gap 9, BUN 47 H, Creatinine 1.87 H, Est GFR (MDRD) Af Amer 34 L, Est GFR (MDRD) Non-Af 28 L, BUN/Creatinine Ratio 25.1 H, Glucose 113 H, Calcium 8.8 Rhythm: EKG: ECHO: Stress Test: Cardiac Cath: PCI: CT Surgery: Holter monitor: EPS: PPM: CXR: Chest CT Scan: Assessment/Plan 1. Tachycardia: This appears to be multifocal atrial tachycardia. Agree with Cardizem. Patient does not need anticoagulants and from the standpoint. Cardizem was just increased to 60 mg every 6 hours. If the heart rate stays up and the blood pressure can tolerate then we can go up on the Cardizem. 2. Pulmonary hypertension: Patient's pulmonary pressures have gone up compared to the previous echo. This could be because of hypoxemia from her COPD exacerbation. At this time she does not appear to be volume overloaded. Her creatinine is slowly going up. It will be reasonable to stop the IV Lasix and gently hydrate her orally.
[2019-05-19] MEDS: guaiFENesin 10 ML UDC (200MG/10ML) PO (22:07)
[2019-05-19] MEDS: Atorvastatin Calcium 20 MG Tablet PO (22:07)
[2019-05-20] VITALS (19 sets, daily range): BP systolic 123–182; BP diastolic 68–75; PULSE 64–116; RESP 16–24; TEMP 36.2–37; O2SAT 91–97
[2019-05-20] MEDS: dilTIAZem 60 MG Tablet PO (05:22)
[2019-05-20] MEDS: Ipratropium/Albuterol Sulfate 3 ML AMPUL.NEB INHALATION ×4 (06:46→19:14)
[2019-05-20 07:01] LABS: Anion Gap 9 (5-15); BUN 54 mg/dL (7-18); BUN/Creat Ratio 27.1 RATIO (10-20); Calcium,Total 9.1 mg/dL (8.5-10.1); Chloride 102 mmol/L (98-107); Creatinine, Serum 1.99 mg/dL (0.55-1.02); EST Glomerular Filtration Rate 26 mL/min (>60); Est Glom Filt Rate - Afr Amer 31 mL/min (>60); Estimated Creatinine Clearance 17.45 ml/min; Glucose 112 mg/dL (74-106); Potassium 3.9 mmol/L (3.5-5.1); Sodium Level 142 mmol/L (136-145)
[2019-05-20] MEDS: predniSONE 20 MG Tablet 40 MG PO (08:50)
[2019-05-20] MEDS: Ranolazine 500 MG Tablet PO (08:50)
[2019-05-20] MEDS: Enoxaparin 30 MG/0.3 ML Syringe SC (08:50)
--- NOTE | 2019-05-20 09:02 | PCM.PN.HOSP ---
Patient Problems: Active and Suspected Problems (Last Reviewed 09/19/18 @ 14:01 by NATHANIEL Vargas) Acute respiratory failure with hypoxia (Acute) Accelerated hypertension (Acute) Chest pain (Acute) Tachycardia (Acute) Subjective: Currently on room air and tolerating it very well. No acute events overnight. Vitals/I&O's: Vital Signs Temp Pulse Resp BP Pulse Ox 98.4 F 64 16 157/74 H 96 05/20/19 08:47 05/20/19 08:47 05/20/19 08:47 05/20/19 08:47 05/20/19 08:47 Oxygen Flow Rate (L/min) 1 Oxygen Delivery Method Room Air Weight: 102 lb 15.294 oz Body Mass Index (BMI) 19.2 Intake and Output for Last 24 Hours 05/18/19 05/19/19 05/20/19 23:59 23:59 23:59 Intake Total 580 / 580 640 / 640 240 / 240 Output Total 1200 / 1200 975 / 975 250 / 250 Balance -620 / -620 -335 / -335 -10 / -10 General: Alert, Oriented x3, Cooperative, No apparent distress HEENT: Atraumatic, PERRLA, EOMI, Normocephalic Oral: Moist Mucosa Neck: Supple, No JVD Lungs: rhonchi, No rales, Diminished, Wheezes, - -air movement has improved Cardiovascular: Regular rate, Regular Rhythm, Normal S1, Normal S2, No murmurs Abdomen: Soft, Non Tender, Non-Distended, No Hepato-splenomegaly Extremities: No edema, Capillary Refill Less than 3 Seconds Skin: - - She has signs of ecchymosis on her arms and legs, she states that this has been an issue for several years and that other members in her family have this issue. She is not on any antiplatelet medication Neurological: Neuro grossly intact, Sensory exam intact to light touch and pain Psych/Mental Status: Normal Affect, Appropriate Laboratory Results 05/20/19 05:35: Sodium 142, Potassium 3.9, Chloride 102, Carbon Dioxide 31.0, Anion Gap 9, BUN 54 H, Creatinine 1.99 H, Estim Creat Clear Calc 17.45, Est GFR (MDRD) Af Amer 31 L, Est GFR (MDRD) Non-Af 26 L, BUN/Creatinine Ratio 27.1 H, Glucose 112 H, Calcium 9.1 Current Medications Acetaminophen (Tylenol) 650 mg PO Q6H PRN PRN PRN Reason: Non-cardiac pain (mod-severe) Last Admin: 05/16/19 22:08 Dose: 650 mg Documented by: Al Hydroxide/Mg Hydroxide (Mylanta Ii) 15 - 30 ml PO Q4H PRN PRN PRN Reason: INDIGESTION Albuterol Sulfate (Ventolin Aerosols) 2.5 mg INHALATION Q2H PRN PRN PRN Reason: dyspnea, wheezing Last Admin: 05/19/19 16:50 Dose: 2.5 mg Documented by: Albuterol/Ipratropium (Duoneb) 3 ml INHALATION Q4HWA.RT [facility] Last Admin: 05/20/19 06:46 Dose: 3 ml Documented by: Atorvastatin Calcium (Lipitor) 20 mg PO QHS [facility] Last Admin: 05/19/19 22:07 Dose: 20 mg Documented by: Diltiazem HCl (Cardizem) 60 mg PO Q6 [facility] Last Admin: 05/20/19 05:22 Dose: 60 mg Documented by: Enoxaparin Sodium (Lovenox) 30 mg SC DAILY@1000 [facility] Last Admin: 05/20/19 08:50 Dose: 30 mg Documented by: Guaifenesin (Robitussin) 10 ml PO Q4H PRN PRN PRN Reason: coughing Last Admin: 05/19/19 22:07 Dose: 10 ml Documented by: Hydralazine HCl (Apresoline Iv) 10 mg IV Q4H PRN PRN PRN Reason: SBP > 160 Magnesium Hydroxide (Milk Of Magnesia) 30 ml PO DAILY PRN PRN Reason: Constipation Nutritional Formula (Lactose Free) (Ensure Enlive) 120 ml PO 4X/DAY [facility] Last Admin: 05/20/19 08:55 Dose: 120 ml Documented by: Ondansetron HCl (Zofran) 4 mg IV Q8H PRN PRN PRN Reason: NAUSEA/VOMITING Prednisone () 40 mg PO DAILY@0800 [facility] Last Admin: 05/20/19 08:50 Dose: 40 mg Documented by: Ranolazine (Ranexa) 500 mg PO DAILY [facility] Last Admin: 05/20/19 08:50 Dose: 500 mg Documented by: Sodium Chloride () 5 - 15 ml IV UD PRN PRN Reason: SALINE FLUSH Last Admin: 05/19/19 10:12 Dose: 10 ml Documented by: STROKE Vital Signs/Narrative: Vital Signs Temp Pulse Resp BP Pulse Ox 05/20/19 08:47 98.4 F 64 16 157/74 H 96 05/20/19 06:46 87 20 H 97 Medical Necessity - Tobacco Use Smoking Status: Former smoker Tobacco Use: Cigarettes Assessment/Plan All Active Problems (Last Reviewed 09/19/18 @ 14:01 by NATHANIEL Vargas) Acute respiratory failure with hypoxia (Acute) Accelerated hypertension (Acute) Chest pain (Acute) Tachycardia (Acute) History of steroid therapy (Acute) Acute exacerbation of chronic obstructive pulmonary disease (Resolved) Pneumococcal pneumonia (Resolved) Sepsis (Resolved) 1. Acute hypoxic respiratory failure secondary to COPD exacerbation/history of cryptogenic organizing pneumonia -Given her cigarette smoking history as well as the fact that she is on albuterol, Advair, Daliresp as well as her Spiriva, I feel like this is more than likely a COPD exacerbation -Chest x-ray did not show any signs of fluid overload and she has no lower extremity edema -Echo shows a significant increase in her pulmonary pressures from 54, 2 years ago, to 84. CTA of the chest was negative for PE. Also given the significant increase in her pulmonary pressures, since her creatinine has climbed to 1.99 today, her Lasix was discontinued -It is felt that her increase pulmonary pressures could be secondary to hypoxia and therefore we will continue to aggressively treat her COPD exacerbation -Continue with prednisone daily -We will obtain ambulatory pulse ox prior to discharge 2. HLD/HTN/focal atrial tachycardia -EF on the echo was 65% with significant pulmonary hypertension to 84 mmHg -Increase Cardizem to 60 mg p.o. 4 times daily yesterday. She still has periods of tachycardia and will continue to monitor -Appreciate cardiology input 3. CKD 3 with RAUL -Creatinine on admission is 1.59 which is a little bit higher than her baseline of 1.4, currently 1.99 -We will continue to monitor while being diuresed DVT: Lovenox Code Visit Inpatient E&M: 62156 Subs Hosp L2
--- NOTE | 2019-05-20 11:36 | PCM.PN.CARD ---
Subjectve: Reports no complaints. Telemetry demonstrates a sinus rhythm with PACs rate in 80s. Objective: Vital Signs Temp Pulse Resp BP Pulse Ox 98.4 F 87 24 H 157/74 H 96 05/20/19 08:47 05/20/19 10:51 05/20/19 10:51 05/20/19 08:47 05/20/19 08:47 Oxygen Flow Rate (L/min) 1 Oxygen Delivery Method Room Air Weight: 46.7 kg Body Mass Index (BMI) 19.2 Intake and Output for Last 24 Hours 05/18/19 05/19/19 05/20/19 23:59 23:59 23:59 Intake Total 580 / 580 640 / 640 240 / 240 Output Total 1200 / 1200 975 / 975 550 / 550 Balance -620 / -620 -335 / -335 -310 / -310 General: Awake, Alert, Oriented x 3 HEENT: PERRL, EOMI, Sclera Non Icteric Neck: Supple, Good ROM, No Lymph Node Enlargement Lungs: Clear to auscultation, Expiratory Wheezes-Earl Cardiovascular: Regular Rhythm, Irregular Rhythm, Normal S1, Normal S2, No Murmurs, No Rubs, No Gallops Vascular: No Carotid Bruits, Normal Femoral Pulses, Normal Radial Pulses, Normal Dorsalis Pedal Pulse, Normal Posterior Tibial Pulses Abdomen: Bowel Sounds Present, Soft, Non Tender, No HSM, No Organomegaly Extremities: No Cyanosis, No Clubbing, No edema Neurological: No Focal Motor or Sensory Deficit 05/20/19 05:35: Sodium 142, Potassium 3.9, Chloride 102, Carbon Dioxide 31.0, Anion Gap 9, BUN 54 H, Creatinine 1.99 H, Est GFR (MDRD) Af Amer 31 L, Est GFR (MDRD) Non-Af 26 L, BUN/Creatinine Ratio 27.1 H, Glucose 112 H, Calcium 9.1 Rhythm: EKG: ECHO: Stress Test: Cardiac Cath: PCI: CT Surgery: Holter monitor: EPS: PPM: CXR: Chest CT Scan: Medical Necessity - Tobacco Use Smoking Status: Former smoker Tobacco Use: Cigarettes Assessment/Plan Multifocal atrial tachycardia. Resolved. Can switch Cardizem to Cardizem CD 240 mg once a day. Outpatient follow-up with Dr. Montero. Please call with questions.
[2019-05-20] MEDS: hydrALAZINE 20 MG/ML Vial 10 MG IV (14:43)
--- NOTE | 2019-05-20 15:37 | EKG12_ITS ---
Test Reason : INC HR Blood Pressure : / mmHG Vent. Rate : 099 BPM Atrial Rate : 099 BPM P-R Int : 208 ms QRS Dur : 082 ms QT Int : 352 ms P-R-T Axes : 073 044 103 degrees QTc Int : 451 ms Sinus rhythm with Premature atrial complexes Nonspecific T wave abnormality Abnormal ECG When compared with ECG of 16-MAY-2019 12:19, Sinus rhythm has replaced Atrial fibrillation Confirmed by JAKI BUSTAMANTE, DENIZ ([id number]), assignment editor CHAD DENNISON ([id number]) on 05/26/2019 11:45:43 AM Referred By: LUCERO Confirmed By:DENIZ POLLACK MD
[2019-05-20] MEDS: guaiFENesin 10 ML UDC (200MG/10ML) PO ×2 (16:56→21:50)
[2019-05-20] MEDS: dilTIAZem CD 240 MG Capsule PO (16:56)
[2019-05-20] MEDS: Atorvastatin Calcium 20 MG Tablet PO (21:51)
[2019-05-21 03:27] VITALS: PULSE 103
[2019-05-21 03:57] VITALS: BP 126/68; PULSE 97; RESP 18; TEMP 36.7; O2SAT 97
[2019-05-21 05:57] LABS: Anion Gap 8 (5-15); BUN 52 mg/dL (7-18); Calcium,Total 9.4 mg/dL (8.5-10.1); Chloride 104 mmol/L (98-107); Creatinine, Serum 1.53 mg/dL (0.55-1.02); EST Glomerular Filtration Rate 35 mL/min (>60); Est Glom Filt Rate - Afr Amer 42 mL/min (>60); Glucose 120 mg/dL (74-106); Potassium 3.8 mmol/L (3.5-5.1); Sodium Level 143 mmol/L (136-145)
[2019-05-21 07:00] VITALS: PULSE 93
[2019-05-21] MEDS: Ipratropium/Albuterol Sulfate 3 ML AMPUL.NEB INHALATION ×2 (07:27→07:34)
[2019-05-21 07:34] VITALS: PULSE 98; RESP 16; O2SAT 99
[2019-05-21] MEDS: predniSONE 20 MG Tablet 40 MG PO (08:24)
[2019-05-21] MEDS: dilTIAZem CD 240 MG Capsule PO (08:25)
[2019-05-21] MEDS: Ranolazine 500 MG Tablet PO (08:25)
[2019-05-21] MEDS: Enoxaparin 30 MG/0.3 ML Syringe SC (08:25)
[2019-05-21 08:27] VITALS: BP 174/66; PULSE 100; RESP 18; TEMP 36.2; O2SAT 99
--- NOTE | 2019-05-21 09:15 | DCINST_ITS ---
- Discharge Diagnoses Current Active Problems: Current Active and Chronic Problems (Last Reviewed 09/19/18 @ 14:01 by NATHANIEL Vargas) Acute respiratory failure with hypoxia (Acute) COPD with exacerbation (Chronic) Accelerated hypertension (Acute) Chest pain (Acute) Tachycardia (Acute) You will use the following diet at home:: Regular Your food should be the consistency of: Regular Your liquids should be the consistency of: Regular/Thin Discharge Activity: Return to Normal Activity Call your doctor if you observe: Fever of 101 or Higher, Shortness of breath, Dizziness, Fainting spells, Swelling in the ankles, Chest pain, Increased palpitations (irregular heartbeat) Additional Instructions: Have a BMP done by your PCP in 3-5 days to monitor kidney function. Allergies/Adverse Reactions: Allergies levofloxacin [From Levaquin] Adverse Reaction (Severe, Verified 05/16/19 06:24) Unknown sulfamethoxazole [From Bactrim] Adverse Reaction (Severe, Verified 05/16/19 06:24) Unknown trimethoprim [From Bactrim] Adverse Reaction (Severe, Verified 05/16/19 06:24) Unknown A 'MYCIN' BUT DO NOT REMEMBER Allergy (Uncoded 05/16/19 06:24) Hives Medications to take at Discharge Tiotropium [place] [Spiriva 18 MCG] 1 puff INHALATION DAILY 10/02/14 Roflumilast [Daliresp] 500 mcg PO DAILY 09/29/15 Atorvastatin Calcium [Lipitor] 20 mg PO QHS 02/14/16 Albuterol Inhaler [Ventolin Hfa] 1 - 2 puff INHALATION Q4H PRN PRN 01/17/17 ALPRAZolam [Xanax] 0.25 mg PO DAILY PRN PRN 03/30/17 Albuterol Aerosols [Ventolin Aerosols] 2.5 mg INHALATION Q6H PRN PRN 09/10/17 cholecalciferol (vitamin D3) 1,000 unit capsule 1,000 unit PO DAILY 07/28/18 calcium carbonate 600 mg calcium (1,500 mg) tablet 1,000 mg PO DAILY tab 09/19/18 Fluticasone/Salmeterol [Advair 500-50 Diskus] 1 puff INHALATION BID 01/26/19 Ranolazine [Ranexa] 500 mg PO DAILY 10/15/19 Diltiazem CD [Cardizem CD] 240 mg PO DAILY #30 cap 05/21/19 Furosemide 40 mg PO QDAY #0 tab 05/21/19 predniSONE tablet 40 mg PO DAILY@0800 #17 tab 05/21/19 The following prescriptions were given: Diltiazem CD [Cardizem CD] 240 mg PO DAILY #30 cap Transmission Status: Pending to [facility] [facility] predniSONE tablet 40 mg PO DAILY@0800 #17 tab Transmission Status: Pending to [facility] [facility] Primary Care Physician: Jai Morales MD [Primary Care Provider] - Please follow up with your Primary Care Physician in: 3-5 days Test Results: Test results from this visit will be discussed in further detail at your follow- up appointment, if applicable. Please Follow Up With: Emmett Mathis MD When: 1 week
--- NOTE | 2019-05-21 09:23 | PCM.DC.SUM ---
Discharge Date and Diagnosis - Problem List Patient Problems: Active and Suspected Problems (Last Reviewed 09/19/18 @ 14:01 by NATHANIEL Vargas) Acute respiratory failure with hypoxia (Acute) Accelerated hypertension (Acute) Chest pain (Acute) Tachycardia (Acute) Date of Admission: 05/16/19 Date of Discharge: 05/21/19 - Primary Discharge Diagnosis Active and Suspected Problems (Last Reviewed 09/19/18 @ 14:01 by NATHANIEL Vargas) Acute respiratory failure with hypoxia (Acute) Accelerated hypertension (Acute) Chest pain (Acute) Tachycardia (Acute) - Secondary Discharge Diagnosis Chronic Problems (Last Reviewed 09/19/18 @ 14:01 by NATHANIEL Vargas) COPD with exacerbation (Chronic) Pulmonary hypertension (Chronic) Carotid bruit (Chronic) Non-rheumatic tricuspid valve insufficiency (Chronic) Atherosclerotic heart disease of [place] coronary artery with other forms of angina pectoris (Chronic) COPD (chronic obstructive pulmonary disease) (Chronic) Hypertension (Chronic) SVT (supraventricular tachycardia) (Chronic) CKD (chronic kidney disease), stage III (Chronic) Hyperlipidemia (Chronic) Hospital Course and Treatment Imaging Results: CXR: IMPRESSION: Emphysema without pneumonia or atelectasis. Echo: Interpretation summary D-shaped septum in diastole. The estimated ejection fraction is 65%. Unable to assess diastolic dysfunction due to arrhythmia. Mild 1+ mitral valve insufficiency. Mild 1+ tricuspid valve insufficiency Right ventricular systolic pressure estimated to be 84 mmHg Severe pulmonary hypertension. The inferior vena cava is dilated. Small left pleural effusion. Compared to echo report dated 06/07/2017, LV function has remained the same, but RVSP has increased from 58 to 84 mmHg. CTA Chest: IMPRESSION: ASHD and existing COPD.. No evidence for pulmonary embolus Consults: Cardiology Operations: None Procedures: 2-D Echocardiogram Summary of Care Provided: Per HPI: The patient is a 78 year old F with a PMH as below who presents with shortness of breath that was significantly worse today. She states that she has been having shortness of breath for the last several weeks and was initially on steroids by her head greenskeeper. They were discontinued about a week and a half ago so she could obtain a flu shot and since that time she has had a steadily worsening in her respiratory status. Today she woke up and became significantly short of breath with ambulation as well as tightness across the chest. She denies any significant chest pain, in the ER her EKG was overall unremarkable with a normal troponin. She does take Lasix at home for lower extremity edema, but she is never been diagnosed with heart failure though she does describe for years now the inability to lay flat because of shortness of breath. On admission she denies any fevers or chills, however lab work in the ER did demonstrate a BNP of 983 with a creatinine of 1.59. She has no leukocytosis Hospital Course: 1. Acute hypoxic respiratory failure secondary to COPD exacerbation/history of chronic organizing pneumonia/severe pulmonary HTN/CKD 3 with BMI-12-jccv-old female who presented with significant shortness of breath after her prednisone was discontinued for about a week and a half in order to obtain a flu shot. On admission she was started on Solu-Medrol 3 times daily and had some improvement in her and her oxygenation however she did become significantly tachycardic. Because of her history of orthopnea and being on Ranexa, an echo was obtained which showed a significant increase in her pulmonary pressures to 84 mmHg from a baseline of 58. A CT of the chest was obtained to rule out PE as a possible cause of the sudden increase, and the CTA was negative. She was also having significant atrial tachycardia and cardiology was consulted to help manage her. She was continued on her metoprolol but was switched over to Cardizem ultimately achieving a dose of 240 mg daily to control her heart rate and blood pressure. Initially when her pulmonary hypertension was elucidated, she was started on aggressive IV diuresis and had significant output. However her creatinine did peak to 1.99. Her Lasix were discontinued the day before discharge and on the day of discharge her creatinine improved to 1.53 which is close to her baseline. I recommend that she hold off on restarting her home Lasix until Wednesday of this week. She should follow-up with her primary care doctor to obtain a BMP to monitor her renal function. Also I placed her on a steroid taper, however I do think that consideration should be given to chronic steroids given the fact that she is on so many inhalers at home to control her COPD. Recent research does indicate that she could benefit from a bisphosphonate if the decision is made to continue with chronic steroids in an effort to prevent bone demineralization. I discussed with her the risks and benefits of going home and she expressed understanding. 2. HLD/HTN/multifocal atrial tachycardia-we will hold off on continuing her Lasix until Wednesday given her recent increase in creatinine. Also cardiology felt that the majority of her pulmonary hypertension was secondary to her COPD. We discontinued her metoprolol and then transition her to Cardizem as that is a better medication for multifocal atrial tachycardia. She is been discharged on 240 mg daily of Cardizem, and if she continues to be tachycardic or hypertensive on the outpatient side, would recommend increasing to 360 daily. 3. Her other medical diagnoses were evaluated and her home medications were continued where appropriate Patient Problems: Active and Suspected Problems (Last Reviewed 09/19/18 @ 14:01 by NATHANIEL Vargas) Acute respiratory failure with hypoxia (Acute) Accelerated hypertension (Acute) Chest pain (Acute) Tachycardia (Acute) Objective: General: Alert, Oriented x3, Cooperative, No apparent distress HEENT: Atraumatic, PERRLA, EOMI, Normocephalic Oral: Moist Mucosa Neck: Supple, No JVD Lungs: rhonchi, No rales, Diminished, Wheezes, - -air movement has improved Cardiovascular: Regular rate, Regular Rhythm, Normal S1, Normal S2, No murmurs Abdomen: Soft, Non Tender, Non-Distended, No Hepato-splenomegaly Extremities: No edema, Capillary Refill Less than 3 Seconds Skin: - - She has signs of ecchymosis on her arms and legs, she states that this has been an issue for several years and that other members in her family have this issue. She is not on any antiplatelet medication Neurological: Neuro grossly intact, Sensory exam intact to light touch and pain Psych/Mental Status: Normal Affect, Appropriate - Physical Exam Vital Signs Temp Pulse Resp BP Pulse Ox 97.1 F L 100 18 174/66 H 99 05/21/19 08:27 05/21/19 08:27 05/21/19 08:27 05/21/19 08:27 05/21/19 08:27 Oxygen Flow Rate (L/min) 2 Oxygen Delivery Method Room Air Weight: 103 lb 6.349 oz Body Mass Index (BMI) 19.2 Intake and Output for Last 24 Hours 05/19/19 05/20/19 05/21/19 23:59 23:59 23:59 Intake Total 640 / 640 1240 / 1240 360 / 360 Output Total 975 / 975 750 / 750 200 / 200 Balance -335 / -335 490 / 490 160 / 160 Laboratory Tests Past 24 Hrs 05/21/19 05:15 Sodium 143 Potassium 3.8 Chloride 104 Carbon Dioxide 31.0 Anion Gap 8 BUN 52 H Creatinine 1.53 H Estim Creat Clear Calc 22.70 Est GFR (MDRD) Af Amer 42 L Est GFR (MDRD) Non-Af 35 L BUN/Creatinine Ratio 34.0 H Glucose 120 H Calcium 9.4 Discharge Activity: Return to Normal Activity Call your doctor if you observe: Fever of 101 or Higher, Shortness of breath, Dizziness, Fainting spells, Swelling in the ankles, Chest pain, Increased palpitations (irregular heartbeat) Home Medications: Medications to take at Discharge Tiotropium Randolph [Spiriva 18 MCG] 1 puff INHALATION DAILY 10/02/14 Roflumilast [Daliresp] 500 mcg PO DAILY 09/29/15 Atorvastatin Calcium [Lipitor] 20 mg PO QHS 02/14/16 Albuterol Inhaler [Ventolin Hfa] 1 - 2 puff INHALATION Q4H PRN PRN 01/17/17 ALPRAZolam [Xanax] 0.25 mg PO DAILY PRN PRN 03/30/17 Albuterol Aerosols [Ventolin Aerosols] 2.5 mg INHALATION Q6H PRN PRN 09/10/17 cholecalciferol (vitamin D3) 1,000 unit capsule 1,000 unit PO DAILY 07/28/18 calcium carbonate 600 mg calcium (1,500 mg) tablet 1,000 mg PO DAILY tab 09/19/18 Fluticasone/Salmeterol [Advair 500-50 Diskus] 1 puff INHALATION BID 01/26/19 Ranolazine [Ranexa] 500 mg PO DAILY 05/16/19 Diltiazem CD [Cardizem CD] 240 mg PO DAILY #30 cap 05/21/19 Furosemide 40 mg PO QDAY #0 tab 05/21/19 predniSONE tablet 40 mg PO DAILY@0800 #17 tab 05/21/19 Following Prescrptions Were Given to Patient: Diltiazem CD [Cardizem CD] 240 mg PO DAILY #30 cap Transmission Status: Pending to [facility] [address] predniSONE tablet 40 mg PO DAILY@0800 #17 tab Transmission Status: Pending to [facility] [facility] Primary Care Physician: Jai Morales MD [Primary Care Provider] - Please follow up with your Primary Care Physician in: 3-5 days Please Follow Up With: Emmett Mathis MD When: 1 week Disposition: Home Minutes spent on discharge:: 35 Patient Condition:: Stable Medical Necessity - Tobacco Use Smoking Status: Former smoker Tobacco Use: Cigarettes Meaningful Use Info Meaningful Use Diagnoses (Choose all that apply): None applicable Code Visit Inpatient E&M: 44126 Disch Hosp
--- NOTE | 2019-05-22 14:05 | CASEMGMT ---
ANTHONY KRISHNA DC PHONE CALL DC DATE: 05/21/19 DC Disposition: Home Diagnosis on Discharge: Acute Resp failure with hypoxia LACE/STRATA: 13/3 Intro role of CM to patient via phone. Pt states she is feeling better. Prescriptions for new medications were picked up and pt understands dosage instructions. No questions re: dc instructions and pt has f/u appointments made. No care improvement suggestions were given. Dom PETERSON RN ACM
== END 2019-05-21 10:06 | disposition home or self-care (01) | DRG 190 ==
LOC: ED 08:21 → PCU 09:29
PROVIDERS: Admitting Provider Family Medicine; Emergency Provider Emergency Medicine; Family Provider Family Medicine; PCP Family Medicine; Visit Provider Family Medicine
DX: J44.1 Chronic obstructive pulmonary disease with (acute) exacerbation (principal); J96.01 Acute respiratory failure with hypoxia; N17.9 Acute kidney failure, unspecified; I47.1 Supraventricular tachycardia; I12.9 Hypertensive chronic kidney disease with stage 1 through stage 4 chronic kidney disease, or unspecified chronic kidney disease; N18.3 Chronic kidney disease, stage 3 (moderate); E78.5 Hyperlipidemia, unspecified; Z87.891 Personal history of nicotine dependence; I27.20 Pulmonary hypertension, unspecified; I36.1 Nonrheumatic tricuspid (valve) insufficiency; I25.118 Atherosclerotic heart disease of native coronary artery with other forms of angina pectoris; R07.9 Chest pain, unspecified
CPT/HCPCS: 36415; 71045; 71275; 80048; 83880; 84484; 85025; 93005; 93306; 94640; 97802; 99285; Q9957; Q9967; A4216; J1940

== ENCOUNTER 2019-06-07 16:43 | Inpatient (IN) | payer MEDICARE, BC, SELFPAY ==
[2019-05-16 10:20] VITALS: BMI 19.2
[2019-06-07] VITALS (8 sets, daily range): BP systolic 98–113; BP diastolic 50–62; PULSE 70–84; RESP 16–18; TEMP 36.3–36.4; O2SAT 89–98; BMI 17.3; BMI 17.6; BMI 17.7
--- NOTE | 2019-06-07 17:12 | ED.RN ---
unable to obtain spo2 reading in triage due to poor circulation to her hands. multiple devises and fingers used. mare banks [id number]
--- NOTE | 2019-06-07 17:14 | EKG12_ITS ---
Test Reason : Blood Pressure : / mmHG Vent. Rate : 078 BPM Atrial Rate : 078 BPM P-R Int : 130 ms QRS Dur : 088 ms QT Int : 442 ms P-R-T Axes : 093 023 108 degrees QTc Int : 503 ms Sinus rhythm with Sinus Arrhythmia Nonspecific ST & & T wave abnormality Abnormal ECG Confirmed by JAKI BUSTAMANTE, DENIZ ([id number]), field map editor KALLI VILLEDA ([id number]) on 06/13/2019 2:19:54 PM Referred By: Ugo Rosenbaum Confirmed By:DENIZ POLLACK MD
--- NOTE | 2019-06-07 17:15 | CT_ITS ---
STUDY: CT ABDOMEN AND PELVIS WITHOUT CONTRAST REASON FOR EXAM: Female, 78 years old. Lower abdominal pain and weight loss RADIATION DOSAGE (If Supplied By Facility): CTDIvol = ( 6.04 ) mGy, DLP = ( 249.13 ) mGycm TECHNIQUE: Transaxial images were obtained from the dome of the diaphragm to the symphysis pubis without oral contrast, and without intravenous contrast. Sagittal and coronal images were reconstructed. Individualized dose optimization techniques were used for this CT. COMPARISON: None. FINDINGS: There is a small right pleural effusion and compressive atelectasis in right lower lobe. There is also minor atelectasis at left base. The visualized portions of the heart are within normal limits. Liver is normal size. There is a small cyst in the right lobe. Bile ducts are not dilated. Gallbladder is distended and there is very slightly hyperattenuated appearance to the fluid possibly representing sludge or poorly calcified stones.. Normal spleen. Normal pancreas. Normal bilateral adrenal glands. The right kidney is atrophic.. There is tiny nonobstructing calculus in left kidney. Normal visualized stomach. Nonspecific ileus with diffuse fecal retention in the colon. No evidence for acute appendicitis Atherosclerotic changes of the aorta without evidence for aneurysm. Normal inferior vena cava. Normal retroperitoneum. The bladder is severely distended of uncertain etiology displacing the bowel loops out of the pelvis Uterus not visualized consistent with hysterectomy Normal abdominal wall. Lumbar spine demonstrates moderate spondylosis. Grade 1 spondylolisthesis at L5-S1 CT/Abdomen/Pelvis without Cont IMPRESSION: Mildly distended bladder with possible sludge or poorly calcified stones. If concern for gallbladder disease ultrasound recommended Nonspecific massive distention of the bladder. Nonspecific diffuse ileus pattern. Left nephrolithiasis without evidence for hydronephrosis or ureteral calculus Status post hysterectomy. Electronically Signed: Jefry Nascimento MD at 18:02 EST , Service support ,
--- NOTE | 2019-06-07 17:17 | ED.DCSUM_ITS ---
History of Present Illness Chief Complaint: Weakness Informant: Patient Onset: Weeks - 1-2 Context: Gradual Onset Timing: Continuous Quality: fatigue, weak Location: all over Current Severity: Severe Maximum Severity: Severe Worsened by: light exertion Relieved by: nothing Associated Symptoms: poor po intake Narrative: Patient is an extremely poor historian. Her daughter brings her out of concern because she is not eating or drinking, is probably dehydrated, and is extremely weak and tired and can barely get around at home. She was admitted to the hospital and discharged around 2 weeks from now or little more, she was admitted for a COPD flareup she states. Her breathing has been much better since she has been home. The daughter thinks she gets dyspnea when she exerts herself, he sees her exert herself a little and then need to use an inhaler at times. The patient does not think her breathing is much of an issue, she thinks her fluid intake is been adequate, however the daughter disagrees and states that at times she has not urinated for 16 hours. Patient states she is having few bowel movements. She feels like she needs to have one now but does not feel like she can. She is having some lower abdominal discomfort and cannot tell me how long that is been there or to what degree. She has had a coccygeal bedsore that has been present since she was in the hospital, it bled a little bit today. She denies bleeding from anywhere else that she knows of. She denies any fevers. No vomiting. She cannot tell me why she is not eating or drinking well. She denies any sores in her mouth, nausea or vomiting, chest discomfort although when we discussed that, she states that when she eats solid she occasionally gets it stuck in her throat and points to her mid chest, resulting in emesis. That is been going on for months, and this is the first time she is told a physician about it. She states she can pass soft foods and liquids okay without difficulty but cannot tell me why she is not taking them in well. When asked if she has a poor appetite, she gives me a blank stare and really cannot answer. - Past Medical History (1) Accelerated hypertension Status: Suspected (2) Atherosclerotic heart disease of [place] coronary artery with other forms of angina pectoris Status: Chronic (3) CKD (chronic kidney disease), stage III Status: Chronic (4) COPD (chronic obstructive pulmonary disease) Status: Chronic (5) Hyperlipidemia Status: Chronic (6) Hypertension Status: Chronic (7) Non-rheumatic tricuspid valve insufficiency Status: Chronic (8) Pulmonary hypertension Status: Chronic (9) SVT (supraventricular tachycardia) Status: Chronic Past Medical History - Allergies and Home Meds Allergies/Adverse Reactions: Allergies levofloxacin [From Levaquin] Adverse Reaction (Severe, Verified 06/07/19 16:51) Unknown sulfamethoxazole [From Bactrim] Adverse Reaction (Severe, Verified 06/07/19 16:51) Unknown trimethoprim [From Bactrim] Adverse Reaction (Severe, Verified 06/07/19 16:51) Unknown A 'MYCIN' BUT DO NOT REMEMBER Allergy (Uncoded 06/07/19 16:51) Hives Primary Care Physician: Jai Morales MD [Primary Care Provider] - Surgical History: appendectomy, hysterectomy Lives: With Family Smoking Status: Never smoker Drugs: None - Family History Maternal Family History: Family History (Last Reviewed 09/19/18 @ 13:37 by Denisha Jansen) Father CAD (coronary artery disease) Myocardial infarction Mother CAD (coronary artery disease) Hypertension Sister CAD (coronary artery disease) Sister Hypertension CHF (congestive heart failure) Family History: Reports: Hypertension Paternal Family History: Family History (Last Reviewed 09/19/18 @ 13:37 by Denisha Jansen) Father CAD (coronary artery disease) Myocardial infarction Mother CAD (coronary artery disease) Hypertension Sister CAD (coronary artery disease) Sister Hypertension CHF (congestive heart failure) Family History: Reports: Heart Disease - [place] 60s. Review of Systems General: Reports: Malaise, Weight loss. Denies: Chills, Fever, Sweats Eyes: Denies: Visual changes - bilaterally, Diplopia ENT: Denies: Bilateral ear pain, Rhinorrhea, Sore throat Cardiovascular: Denies: Chest pain, Palpitations Respiratory: Denies: Dyspnea, Cough, Dyspnea on exertion Gastrointestinal: Reports: Abdominal pain. Denies: Nausea, Vomiting, Diarrhea, Melena, Hematochezia Genitourinary: Reports: - - decreased UOP. Denies: Dysuria, Hematuria, Frequency Musculoskeletal: Denies: Neck pain, Back pain, Swelling, Extremity Pain Skin: Reports: Wounds - tailbone. Denies: Rash, Abscess Neurological: Denies: Headache, Weakness, Numbness Physical Exam Vital Signs/Narrative: Vital Signs Temp Pulse Resp BP 06/07/19 16:44 97.6 F L 84 17 98/54 L Inital Vital Signs reviewed: Yes General: Well nourished, Well developed, Cachectic, No Acute Distress Head: Normocephalic, Atraumatic Eyes: Perrl, EOMI ENT: No rhinorrhea, Dry mucous membranes. Negative for: Nasal congestion Neck: Supple, Nontender, No lymphadenopathy Cardiovascular: Regular rate, Regular rhythm, No murmurs Respiratory: No distress, CTA bilaterally, Chest nontender Abdomen: Soft, Normal bowel sounds, No masses, Tender - mild, suprapubic, with focal distension, Pulsatile mass - epigastrium; not large. +audible bruit. : - - Normal external inspection except for a sacral decubitus ulceration that is partial-thickness and does not appear infected or actively bleeding Back: Nontender, Normal Inspection. Negative for: CVA tenderness Extremities: Nontender, No edema. Negative for: Calf Tenderness Skin: Normal color, No rash, No Trauma Neurological: Alert, Oriented x3, Cranial nerves II-XII grossly intact, Normal Strength, Normal Sensation Psychological: Normal affect, Normal Mood Diagnostic/Tx/Re-eval Impressions Abdomen/Pelvis CT 06/07/19 17:15 IMPRESSION: Mildly distended bladder with possible sludge or poorly calcified stones. If concern for gallbladder disease ultrasound recommended Nonspecific massive distention of the bladder. Nonspecific diffuse ileus pattern. Left nephrolithiasis without evidence for hydronephrosis or ureteral calculus Status post hysterectomy. Electronically Signed: Jefry Nascimento MD at 18:02 EST , Service support , Chest X-Ray 06/07/19 17:27 IMPRESSION: Stable chest with no acute superimposed finding. Electronically Signed: Teo Landry MD at 17:37 EST , Service support , 06/07/19 17:15 Abdomen/Pelvis without Cont [CT] Stat 06/07/19 17:27 Chest 1 View (Portable) [RAD] Stat Laboratory Results 06/07/19 06/07/19 06/07/19 17:25 17:25 18:15 WBC 7.7 RBC 3.87 L Hgb 12.3 Hct 36.4 L MCV 94.1 MCH 31.8 MCHC 33.8 RDW Std Deviation 53.8 H RDW Coeff of Kellie 15.9 H Plt Count 225 MPV 9.5 Immature Gran % (Auto) 0.800 Neut % (Auto) 83.0 H Lymph % (Auto) 8.2 L Rogers % (Auto) 2.9 Eos % (Auto) 5.0 Baso % (Auto) 0.1 Absolute Neuts (auto) 6.4 Absolute Lymphs (auto) 0.63 L Nucleated RBC % 0 Sodium 136 Potassium 3.6 Chloride 99 Carbon Dioxide 29.0 Anion Gap 8 BUN 32 H Creatinine 1.57 H Estim Creat Clear Calc 21.06 Est GFR (MDRD) Af Amer 41 L Est GFR (MDRD) Non-Af 34 L BUN/Creatinine Ratio 20.4 H Glucose 107 H Calcium 8.4 L Total Bilirubin 0.80 AST 48 H ALT 42 Alkaline Phosphatase 117 Troponin I 0.018 Total Protein 6.6 Albumin 2.7 L Globulin 3.9 Albumin/Globulin Ratio 0.7 L Lipase 195 Urine Color Yellow Urine Clarity Cloudy Urine pH 7.0 Ur Specific [place] 1.010 Urine Protein 15 H Urine Glucose (UA) Normal Urine Ketones Negative Urine Occult Blood 10 H Urine Nitrite Negative Urine Bilirubin Negative Urine Urobilinogen Normal Ur Leukocyte Esterase 500 H Urine RBC 0-5 SEEN Urine WBC >100 SEEN Ur Squamous Epith Cells 0 SEEN Urine Bacteria 3+ Urine Mucus 0 SEEN - Rhythm Strip Rhythm Strip: Sinus Rhythm Rate: 78 Ectopy: None - EKG Initial EKG Interpretation: Sinus Rhythm, No Acute Injury Pattern, Non-Specific ST Changes - Diffusely without ST elevation or depression Prior: Unchanged - 05/2019 - Medical Decision Making Patient had over a liter of urine in her bladder that was drained via straight catheterization. Afterwards, her lower abdominal distention resolved. CT abdomen/pelvis did not show anything else acute significant except for some possible gallbladder sludge versus stones or both. She was treated with IV f luids and some Zofran. She felt better on reevaluation. Urinalysis shows acute infection; it was sent for culture and IV Rocephin 1 g was given. She was offered admission. She does indeed prefer to stay in the hospital. With regards to her gallbladder, she does not have any clinical or radiographic signs of acute cholecystitis at this time, however it certainly is possible it could be related to her decreased oral intake/appetite, given the lack of specific details in the history. ED Disposition - Plan for ED Patient: Disposition: Acute Care Hospital [facility] Diagnosis: UTI (urinary tract infection), Acute urinary retention, Generalized weakness, Declining functional status Referrals: Jai Morales MD [Primary Care Provider] -
--- NOTE | 2019-06-07 17:27 | RAD_ITS ---
STUDY: X-RAY CHEST REASON FOR EXAM: Female, 78 years old. Weakness with shortness of breath. TECHNIQUE: Single frontal view of the chest. COMPARISON: May 16, 2019 FINDINGS: Hyperexpansion compatible with COPD unchanged. Linear opacities at both bases representing scarring, unchanged. No focal consolidation. There is no demonstrated pleural abnormality. Stable borderline cardiomegaly. Normal mediastinum and cecile. Normal visualized pulmonary arteries. Aortic tortuosity with marked calcification unchanged. Normal visualized thoracic spine. Normal visualized ribs, clavicles, and shoulders. There is no demonstrated abnormality of the visualized soft tissue structures of the upper abdomen. RAD/Chest 1 View (Portable) IMPRESSION: Stable chest with no acute superimposed finding. Electronically Signed: Teo Landry MD at 17:37 EST , Service support ,
[2019-06-07] MEDS: 0.9% Normal Saline 1,000 ML 250 ML IV (17:31)
[2019-06-07 17:38] LABS: Absolute Lymphocyte Count 0.63 X10^3/uL (0.83-4.51); Absolute Neutrophil Count 6.4 X10^3/uL (2.0-7.7); Basophil# 0.01 X10^3/uL; Basophil% 0.1 % (0-1); Eosinophil# 0.38 X10^3/uL; Hematocrit 36.4 % (37-47); Hemoglobin 12.3 g/dL (12.0-15.0); Lymphocyte # 0.63 X10^3/ul (4.0); Lymphocyte % 8.2 % (19-41); Mean Corp Hgb Conc 33.8 g/dL (32-36); Mean Corpuscular Hgb 31.8 pg (27.0-32.0); Mean Corpuscular Volume 94.1 fL (81-99); Mean Platelet Vol. 9.5 fl (6.2-12.0); Monocyte# 0.22 X10^3/uL; Monocyte% 2.9 % (0-10); NRBC Flagged by Analyzer 0 % (0-5); Neutrophil # 6.36 X10^3/uL (2.7-7.7); Platelet Count 225 K/mm3 (150-450); RBC Distribution Width CV 15.9 % (11.6-14.6); RBC Distribution Width SD 53.8 fl (35.1-43.9); Red Blood Count 3.87 M/mm3 (4.2-5.4); White Blood Count 7.7 K/mm3 (4.4-11.0)
[2019-06-07 17:55] LABS: ALB/GLOB Ratio 0.7 RATIO (0.9-2.4); AST(SGOT) 48 U/L (15-37); Alanine Aminotransfer ALT/SGPT 42 U/L (13-56); Albumin, Serum 2.7 g/dL (3.2-5.0); Alkaline Phosphatase 117 U/L (45-117); Anion Gap 8 (5-15); BUN 32 mg/dL (7-18); BUN/Creat Ratio 20.4 RATIO (10-20); Calcium,Total 8.4 mg/dL (8.5-10.1); Chloride 99 mmol/L (98-107); Creatinine, Serum 1.57 mg/dL (0.55-1.02); EST Glomerular Filtration Rate 34 mL/min (>60); Est Glom Filt Rate - Afr Amer 41 mL/min (>60); Estimated Creatinine Clearance 21.06 ml/min; Globulin 3.9 g/dL (2.2-4.2); Glucose 107 mg/dL (74-106); Lipase 195 U/L (73-393); Potassium 3.6 mmol/L (3.5-5.1); Protein, Total 6.6 g/dL (6.4-8.2); Sodium Level 136 mmol/L (136-145)
[2019-06-07 18:22] LABS: Mucous, Urine 0 SEEN /hpf (<or=2+); Squamous Epithelial Cells - UA 0 SEEN /hpf (5-10)
[2019-06-07 18:46] LABS: Color, Urine Yellow (Yellow); Glucose, Dipstick Normal (Normal); Ketone-Dipstick Negative (Negative); Leukocyte Esterase-Dipstick 500 /ul (Negative); Nitrite-Dipstick Negative (Negative); Occult Blood-Urine 10 /ul (Negative); Protein-Dipstick 15 mg/dl (Negative); Urine Bilirubin Dipstick Negative (Negative); Urine Clarity Cloudy (Clear); Urine Urobilinogen Normal (Normal)
[2019-06-07 19:00] LABS: White Blood Cells >100 SEEN /hpf (0-5)
[2019-06-07 19:01] LABS: Bacteria 3+ /hpf (None Seen); Red Blood Cells-Urine 0-5 SEEN /hpf (0-5)
--- NOTE | 2019-06-07 19:31 | HP.PCM_ITS ---
Problem List (1) Acute urinary retention Status: Acute (2) Generalized weakness Status: Acute (3) Declining functional status Status: Chronic (4) History of steroid therapy Status: Chronic (5) Pulmonary hypertension Status: Chronic (6) Carotid bruit Status: Chronic (7) Non-rheumatic tricuspid valve insufficiency Status: Chronic (8) Atherosclerotic heart disease of [place] coronary artery with other forms of angina pectoris Status: Chronic (9) COPD (chronic obstructive pulmonary disease) Status: Chronic Qualifiers: COPD type: unspecified COPD Qualified Code(s): J44.9 - Chronic obstructive pulmonary disease, unspecified (10) Hypertension Status: Chronic Qualifiers: Hypertension type: essential hypertension Qualified Code(s): I10 - Essential (primary) hypertension (11) SVT (supraventricular tachycardia) Status: Chronic (12) CKD (chronic kidney disease), stage III Status: Chronic (13) Hyperlipidemia Status: Chronic Qualifiers: Hyperlipidemia type: unspecified Qualified Code(s): E78.5 - Hyperlipidemia, unspecified History of Present Illness Date of Admission: 06/07/19 Chief Complaint: Generelized weakness The patient is a 78 year old F with a significant history of COPD; pulmonary hypertension; CKD stage III; SVT who came to emergency department with generalized weakness x1 to 2 weeks. Further, patient has decreased urination; decrease p.o. intake; and bloating of the abdomen. Patient complains of a feeling of food stuck in her chest. Per family patient's lower dentures does not fit well so she can only eat mechanically soft diet. At the emergency department patient was straight cathed and 1000 ml to 1,500ml of urine was obtained. His urinalysis was abnormal and patient was started empirically on ceftriaxone. Abdomen and pelvis showed mildly distended bladder with possible sludge or poorly calcified stones. Also it showed nonspecific massive distention of bladder; nonspecific diffuse ileus pattern; left nephrolithiasis without evidence of hydronephrosis or ureteral calculus. Past Medical History Past Medical History (Chronic Problems): Chronic Problems (Last Reviewed 06/07/19 @ 20:42 by Ugo Rosenbaum MD) Declining functional status (Chronic) History of steroid therapy (Chronic) Pulmonary hypertension (Chronic) Carotid bruit (Chronic) Non-rheumatic tricuspid valve insufficiency (Chronic) Atherosclerotic heart disease of [place] coronary artery with other forms of angina pectoris (Chronic) COPD (chronic obstructive pulmonary disease) (Chronic) Hypertension (Chronic) SVT (supraventricular tachycardia) (Chronic) CKD (chronic kidney disease), stage III (Chronic) Hyperlipidemia (Chronic) Medical History: Medical History (Last Reviewed 06/07/19 @ 20:52 by Ugo Rosenbaum MD) Pulmonary hypertension (Chronic) I27.20 Non-rheumatic tricuspid valve insufficiency (Chronic) I36.1 Atherosclerotic heart disease of [place] coronary artery with other forms of angina pectoris (Chronic) I25.118 COPD (chronic obstructive pulmonary disease) (Chronic) J44.9 Hypertension (Chronic) I10 SVT (supraventricular tachycardia) (Chronic) I47.1 CKD (chronic kidney disease), stage III (Chronic) N18.3 Hyperlipidemia (Chronic) E78.5 Cryptogenic organizing pneumonia J84.116 Osteopenia M85.80 Pulmonary nodule R91.1 lymphoid inflammatory process Anxiety F41.9 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 Pulmonary emboli I26.99 RLS (restless legs syndrome) G25.81 Deep vein thrombosis I82.409 Shortness of breath R06.02 Allergies levofloxacin [From Levaquin] Adverse Reaction (Severe, Verified 06/07/19 16:51) Unknown sulfamethoxazole [From Bactrim] Adverse Reaction (Severe, Verified 06/07/19 16:51) Unknown trimethoprim [From Bactrim] Adverse Reaction (Severe, Verified 06/07/19 16:51) Unknown A 'MYCIN' BUT DO NOT REMEMBER Allergy (Uncoded 06/07/19 16:51) Hives Home Medications: Ambulatory Orders Medication Instructions Recorded Tiotropium [place] [Spiriva 18 MCG] 1 puff INHALATION DAILY 10/02/14 Roflumilast [Daliresp] 500 mcg PO DAILY 09/29/15 Atorvastatin Calcium [Lipitor] 20 mg PO QHS 02/14/16 ALPRAZolam [Xanax] 0.25 mg PO DAILY PRN PRN 03/30/17 calcium carbonate 600 mg calcium 1,000 mg PO DAILY tab 09/19/18 (1,500 mg) tablet Fluticasone/Salmeterol [Advair 1 puff INHALATION BID 01/26/19 500-50 Diskus] Ranolazine [Ranexa] 500 mg PO DAILY 05/16/19 Albuterol Sulfate 2.5 mg IH Q6H PRN PRN 06/07/19 Albuterol Sulfate [Proair Hfa] 2 puff INHALATION Q4H PRN PRN 06/07/19 Azithromycin 250 mg PO DAILY 06/07/19 Cholecalciferol (VIT D3) [Vitamin 1,000 unit PO DAILY 06/07/19 D] Diltiazem CD [Cardizem CD] 240 mg PO DAILY 06/07/19 Furosemide 40 mg PO DAILY 06/07/19 Multivitamin with Minerals 1 tab PO DAILY 06/07/19 [Multiple Vitamin] Surgical History: Surgical History (Last Reviewed 06/07/19 @ 20:52 by Ugo Rosenbaum MD) History of appendectomy Z90.49 History of hysterectomy Z90.710 History of left heart catheterization Onset Date: 11/08/14 Z98.890 Hx of cataract surgery Z98.49 S/P bronchoscopy with biopsy Z98.890 Surgical History: appendectomy, hysterectomy Psychiatric History: Anxiety 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 Lives: With Family Smoking Status: Never smoker Tobacco Use: Cigarettes Drugs: None - *Family History Maternal Family History: Family History (Last Reviewed 06/07/19 @ 20:53 by Ugo Rosenbaum MD) Father CAD (coronary artery disease) Myocardial infarction Mother CAD (coronary artery disease) Hypertension Sister CAD (coronary artery disease) Sister Hypertension CHF (congestive heart failure) History Items: Hypertension Paternal Family History: Family History (Last Reviewed 06/07/19 @ 20:53 by Ugo Rosenbaum MD) Father CAD (coronary artery disease) Myocardial infarction Mother CAD (coronary artery disease) Hypertension Sister CAD (coronary artery disease) Sister Hypertension CHF (congestive heart failure) History Items: Heart Disease - [place] 60s. Review of Systems Constitutional: Reports: Anorexia, Weakness, Fatigue. Denies: Chills, Fever HEENT: Denies: Head Aches, Sinus Congestion, Sinus Drainage Cardiovascular: Denies: Chest Pain, Palpitations Respiratory: Denies: Cough, Shortness of breath at rest, Sputum production Gastrointestinal: Reports: Constipation. Denies: Abdominal Pain, Nausea, Vom iting Genitourinary: Denies: Dysuria Musculoskeletal: Denies: Joint Pain, Joint Tenderness Skin: Reports: Wounds - Pressure ulcer. Denies: Rash Neurological: Reports: Difficulty swallowing. Denies: Focal weakness, Numbness, Tingling Psychiatric: Denies: Anxiety, Depression, Homicidal Ideations, Suicidal Ideations Hematologic/ Lymphatic: Denies: Easy Bruising, Easy Bleeding VTE Information - Inpt Only VTE Present on Admission: No VTE Mechan Device Prophylaxis: None VTE Pharm Prophylaxis ordered?: Yes Patient Problems: Active and Suspected Problems (Last Reviewed 06/07/19 @ 20:42 by Ugo Rosenbaum MD) Acute urinary retention (Acute) Generalized weakness (Acute) - Physical Exam Vitals/I&O's: Vital Signs Temp Pulse Resp BP Pulse Ox 97.6 F L 72 18 106/55 L 93 06/07/19 16:44 06/07/19 19:03 06/07/19 19:03 06/07/19 19:03 06/07/19 19:03 Oxygen Delivery Method Room Air Weight: 44.452 kg Body Mass Index (BMI) 17.3 General: Alert, Oriented x3, Cooperative HEENT: Atraumatic, PERRLA, EOMI, Normocephalic Neck: Supple, No Nodes, No Nuchal Rigidity, Trachea Midline Lungs: Clear to auscultation, Normal air movement Cardiovascular: Regular rate, Normal S1, Normal S2, No murmurs Abdomen: Bowel Sounds Present, Soft, Non Tender Extremities: Capillary Refill Less than 3 Seconds, Edema - Right foot Skin: - - Ulcers on coccyx and sacral area. Erythema of bilateral feet right worse than lef. Excoriation on left lower extremity. Musculoskeletal: No Tenderness to Palpation of Joints or Extremities Neurological: Cranial nerves II-XII grossly intact Psych/Mental Status: Normal Affect, Appropriate Laboratory Results 06/07/19 17:25: WBC 7.7, RBC 3.87 L, Hgb 12.3, Hct 36.4 L, MCV 94.1, MCH 31.8, MCHC 33.8, RDW Std Deviation 53.8 H, RDW Coeff of Kellie 15.9 H, Plt Count 225, MPV 9.5, Immature Gran % (Auto) 0.800, Neut % (Auto) 83.0 H, Lymph % (Auto) 8.2 L, [place] % (Auto) 2.9, Eos % (Auto) 5.0, Baso % (Auto) 0.1, Absolute Neuts (auto) 6.4, Absolute Lymphs (auto) 0.63 L, Nucleated RBC % 0 06/07/19 17:25: Sodium 136, Potassium 3.6, Chloride 99, Carbon Dioxide 29.0, Anion Gap 8, BUN 32 H, Creatinine 1.57 H, Estim Creat Clear Calc 21.06, Est GFR (MDRD) Af Amer 41 L, Est GFR (MDRD) Non-Af 34 L, BUN/Creatinine Ratio 20.4 H, Glucose 107 H, Calcium 8.4 L, Total Bilirubin 0.80, AST 48 H, ALT 42, Alkaline Phosphatase 117, Troponin I 0.018, Total Protein 6.6, Albumin 2.7 L, Globulin 3.9, Albumin/Globulin Ratio 0.7 L, Lipase 195 06/07/19 18:15: Urine Color Yellow, Urine Clarity Cloudy, Urine pH 7.0, Ur Specific [place] 1.010, Urine Protein 15 H, Urine Glucose (UA) Normal, Urine Ketones Negative, Urine Occult Blood 10 H, Urine Nitrite Negative, Urine Bilirubin Negative, Urine Urobilinogen Normal, Ur Leukocyte Esterase 500 H, Urine RBC 0-5 SEEN, Urine WBC >100 SEEN, Ur Squamous Epith Cells 0 SEEN, Urine Bacteria 3+, Urine Mucus 0 SEEN Current Medications Sodium Chloride () 1,000 mls @ 250 mls/hr IV .Q4H KAVIN Last Admin: 06/07/19 17:31 Dose: 250 mls/hr Documented by: Ceftriaxone Sodium (Rocephin) 1 gm in 50 mls @ 100 mls/hr IV X1 ONE Stop: 06/07/19 19:33 Assessment/Plan All Active Problems (Last Reviewed 06/07/19 @ 20:42 by Ugo Rosenbaum MD) Acute urinary retention (Acute) Generalized weakness (Acute) Acute exacerbation of chronic obstructive pulmonary disease (Resolved) Pneumococcal pneumonia (Resolved) Sepsis (Resolved) The patient is a 78 year old F with a significant history of COPD; pulmonary hypertension; CKD stage III; SVT who came to emergency department with generalized weakness x1 to 2 weeks and found to have abnormal urinalysis consistent with generalized weakness with acute cystitis. Acute cystitis On presentation patient received ceftriaxone in the emergency department. Ceftriaxone continued. Urine culture was obtained at the emergency department; follow Generalized weakness This could be from cystitis or physical debility. PT and OT to work patient. Urinary retention with left kidney stone This could be secondary to cystitis or bladder pathology. [place] communication to bladder scan after every void and straight catheter if residual is more than 350 mL's. Urology consult. Distended gallbladder Abdomen and pelvis CT showed distended gallbladder with possible sludge or poorly calcified stone. Will be to keep patient n.p.o. and will get ultrasound of gallbladder. Dysphagia with odynophagia Consider speech evaluation if the patient is no longer n.p.o. Consider starting with mechanical soft diet. Consider modified barium swallow to evaluate for dysphagia; and barium swallow to evaluate for odynophagia. Constipation Continue scheduled MiraLAX 1 patient is no longer n.p.o. PRN Senokot as ordered Hypertension Family reported that patient was placed on Cardizem to 240 mg on last admission because of tachycardia. We will cut her Cardizem dose to 120 mg daily as blood pressure on admission was a little bit on the low side. Hold Lasix for now. Gentle IV hydration. Pressure ulcer of coccyx and sacral area Calmoseptine ordered DVT prophylaxis Subcutaneous Lovenox Code Visit Inpatient E&M: 17165 Init Hosp L3
[2019-06-07] MEDS: Ceftriaxone 1 GM/50 ML BAG IV (19:38)
--- NOTE | 2019-06-07 20:31 | US_ITS ---
STUDY: ABDOMINAL ULTRASOUND - RIGHT UPPER QUADRANT REASON FOR VISIT: Female, 78 years old gallbladder distention TECHNIQUE: Ultrasound evaluation of the right upper quadrant was performed with real-time and static paulino-scale imaging. TECHNICAL QUALITY: Adequate. COMPARISON: None. FINDINGS: Normal right pleural effusion is observed Liver: The liver measures 16.4 cm. There is normal echogenicity of the liver. The bile ducts are within normal limits. There is hepatic color flow. The direction of portal flow is hepatopetal. There is a cyst in the right lobe measuring 1.6 x 1.4 x 1.1 cm Gallbladder: Normal distended gallbladder. The gallbladder wall measures 3 mm. There is a negative sonographic Stephen's sign. There is no pericholecystic fluid. There is biliary sludge but no shadowing stones. Common Bile Duct (C.B.D.): The common bile duct measures 4 mm. Pancreas: Normal size of the head, body and tail of the pancreas. There is normal echogenicity of the pancreas. There is no demonstrated pancreatic mass or cyst. Right Kidney: Small right kidney. The right kidney measures 6.7 x 2.5 x 2.1 cm. Thin renal cortex. The right cortex measures 0.8 cm. There is no demonstrated renal mass or cyst. There is no right hydronephrosis. US/Gallbladder IMPRESSION: Biliary sludge without evidence for shadowing stones or acute inflammation. If concern for gallbladder disease HIDA scan with physiologic stimulation recommended Small right pleural effusion. Small hepatic cyst Atrophic right kidney Electronically Signed: Jefry Nascimento MD at 21:43 EST , Service support ,
[2019-06-07] MEDS: Menthol/Lanolin/Calamine/Znox 113 GM Tube 1 APPLIC TOPICAL (21:57)
[2019-06-07] MEDS: Atorvastatin Calcium 20 MG Tablet PO (21:58)
[2019-06-08] VITALS (15 sets, daily range): BP systolic 114–129; BP diastolic 55–67; PULSE 61–125; RESP 16–18; TEMP 36.4–37; O2SAT 92–96
[2019-06-08] MEDS: 0.9% Normal Saline 1,000 ML 60 ML IV ×2 (03:55→23:08)
[2019-06-08] MEDS: Albuterol 2.5 MG/3 ML VIAL.NEB. INHALATION (04:44)
[2019-06-08] MEDS: Menthol/Lanolin/Calamine/Znox 113 GM Tube 1 APPLIC TOPICAL ×3 (05:53→21:13)
[2019-06-08 06:15] LABS: Anion Gap 7 (5-15); BUN 28 mg/dL (7-18); BUN/Creat Ratio 19.9 RATIO (10-20); Chloride 101 mmol/L (98-107); Creatinine, Serum 1.41 mg/dL (0.55-1.02); EST Glomerular Filtration Rate 38 mL/min (>60); Est Glom Filt Rate - Afr Amer 47 mL/min (>60); Estimated Creatinine Clearance 23.88 ml/min; Glucose 96 mg/dL (74-106); Potassium 3.5 mmol/L (3.5-5.1); Sodium Level 139 mmol/L (136-145)
[2019-06-08] MEDS: Budesonide Respules 0.5 MG/2 ML AMPUL.NEB. INHALATION ×2 (06:58→18:46)
[2019-06-08] MEDS: Ipratropium/Albuterol Sulfate 3 ML AMPUL.NEB INHALATION ×3 (06:58→18:46)
--- NOTE | 2019-06-08 07:33 | PCM.CONS.U ---
Reason for Consult Date of Consultation: 06/08/19 Reason for Consultation: Urinary retention UTI History of Present Illness: The patient is a 78 year old female who presented to the hospital with chronic failure to thrive possible urinary retention not doing well not eating probably is constipated and was found to have retention of urine required self catheter large volume in the ER. She has multiple medical problems. Discussed the situation with the patient and her caregiver her daughter was in with her. Past Medical History Past Medical History (Chronic Problems): Chronic Problems (Last Reviewed 06/07/19 @ 20:52 by Ugo Rosenbaum MD) Declining functional status (Chronic) History of steroid therapy (Chronic) Pulmonary hypertension (Chronic) Carotid bruit (Chronic) Non-rheumatic tricuspid valve insufficiency (Chronic) Atherosclerotic heart disease of [place] coronary artery with other forms of angina pectoris (Chronic) COPD (chronic obstructive pulmonary disease) (Chronic) Hypertension (Chronic) SVT (supraventricular tachycardia) (Chronic) CKD (chronic kidney disease), stage III (Chronic) Hyperlipidemia (Chronic) Medical History: Medical History (Last Reviewed 06/07/19 @ 20:52 by Ugo Rosenbaum MD) Pulmonary hypertension (Chronic) I27.20 Non-rheumatic tricuspid valve insufficiency (Chronic) I36.1 Atherosclerotic heart disease of [place] coronary artery with other forms of angina pectoris (Chronic) I25.118 COPD (chronic obstructive pulmonary disease) (Chronic) J44.9 Hypertension (Chronic) I10 SVT (supraventricular tachycardia) (Chronic) I47.1 CKD (chronic kidney disease), stage III (Chronic) N18.3 Hyperlipidemia (Chronic) E78.5 Cryptogenic organizing pneumonia J84.116 Osteopenia M85.80 Pulmonary nodule R91.1 lymphoid inflammatory process Anxiety F41.9 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 Pulmonary emboli I26.99 RLS (restless legs syndrome) G25.81 Deep vein thrombosis I82.409 Shortness of breath R06.02 Allergies levofloxacin [From Levaquin] Adverse Reaction (Severe, Verified 06/07/19 16:51) Unknown sulfamethoxazole [From Bactrim] Adverse Reaction (Severe, Verified 06/07/19 16:51) Unknown trimethoprim [From Bactrim] Adverse Reaction (Severe, Verified 06/07/19 16:51) Unknown A 'MYCIN' BUT DO NOT REMEMBER Allergy (Uncoded 06/07/19 16:51) Hives Home Medications: Ambulatory Orders Medication Instructions Recorded Tiotropium [place] [Spiriva 18 MCG] 1 puff INHALATION DAILY 10/02/14 Roflumilast [Daliresp] 500 mcg PO DAILY 09/29/15 Atorvastatin Calcium [Lipitor] 20 mg PO QHS 02/14/16 ALPRAZolam [Xanax] 0.25 mg PO DAILY PRN PRN 03/30/17 calcium carbonate 600 mg calcium 1,000 mg PO DAILY tab 09/19/18 (1,500 mg) tablet Fluticasone/Salmeterol [Advair 1 puff INHALATION BID 01/26/19 500-50 Diskus] Ranolazine [Ranexa] 500 mg PO DAILY 05/16/19 Albuterol Sulfate 2.5 mg IH Q6H PRN PRN 06/07/19 Albuterol Sulfate [Proair Hfa] 2 puff INHALATION Q4H PRN PRN 06/07/19 Azithromycin 250 mg PO DAILY 06/07/19 Cholecalciferol (VIT D3) [Vitamin 1,000 unit PO DAILY 06/07/19 D] Diltiazem CD [Cardizem CD] 240 mg PO DAILY 06/07/19 Furosemide 40 mg PO DAILY 06/07/19 Multivitamin with Minerals 1 tab PO DAILY 06/07/19 [Multiple Vitamin] Nystatin 5 ml PO 4X/DAY PRN PRN 06/08/19 Surgical History: Surgical History (Last Reviewed 06/07/19 @ 20:52 by Ugo Rosenbaum MD) History of appendectomy Z90.49 History of hysterectomy Z90.710 History of left heart catheterization Onset Date: 11/08/14 Z98.890 Hx of cataract surgery Z98.49 S/P bronchoscopy with biopsy Z98.890 Surgical History: appendectomy, hysterectomy Psychiatric History: Anxiety 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 Lives: With Family Smoking Status: Never smoker Tobacco Use: Cigarettes Drugs: None - *Family History Maternal Family History: Family History (Last Reviewed 06/07/19 @ 20:53 by Ugo Rosenbaum MD) Father CAD (coronary artery disease) Myocardial infarction Mother CAD (coronary artery disease) Hypertension Sister CAD (coronary artery disease) Sister Hypertension CHF (congestive heart failure) History Items: Hypertension Paternal Family History: Family History (Last Reviewed 06/07/19 @ 20:53 by Ugo Rosenbaum MD) Father CAD (coronary artery disease) Myocardial infarction Mother CAD (coronary artery disease) Hypertension Sister CAD (coronary artery disease) Sister Hypertension CHF (congestive heart failure) History Items: Heart Disease - [place] 60s. Review of Systems Constitutional: Reports: Anorexia. Denies: Chills, Fever, Weight Change HEENT: Denies: Head Aches, Sinus Congestion, Sinus Drainage Cardiovascular: Denies: Chest Pain, Palpitations Respiratory: Denies: Cough, Shortness of breath at rest, Sputum production Gastrointestinal: Denies: Abdominal Pain, Nausea, Vomiting Genitourinary: Reports: Retention. Denies: Dysuria Musculoskeletal: Denies: Joint Pain, Joint Tenderness Skin: Denies: Rash, Wounds Neurological: Denies: Numbness, Tingling, Focal weakness Psychiatric: Denies: Anxiety, Depression, Homicidal Ideations, Suicidal Ideations Hematologic/ Lymphatic: Denies: Easy Bruising, Easy Bleeding Physical Exam - Physical Exam Vital Signs Temp 97.7 F L 06/08/19 03:49 Pulse 84 06/08/19 04:43 Resp 16 06/08/19 04:43 BP 114/67 06/08/19 03:49 Pulse Ox 94 06/08/19 04:00 Intake & Output 06/06/19 06/07/19 06/08/19 23:59 23:59 23:59 Intake Total 579.17 / 939.17 915 / 915 Output Total 1100 / 1100 Balance 579.17 / 939.17 -185 / -185 Weight: 45.269 kg 47.6 kg Intake: Oral 460 / 460 Intake, IV Amount 579.17 / 579.17 455 / 455 0.9% Normal Saline 1,000 ML @ 529.17 / 529.17 455 / 455 250 mls/hr IV .Q4H KAVIN Rx#: [id number] Rocephin 1 gm In 50 ml @ 100 50 / 50 mls/hr IV X1 ONE Rx#:[id number] Output: Urine 1100 / 1100 General: Alert HEENT: Atraumatic Oral: Moist Mucosa Neck: Supple Lungs: Normal air movement - You can use it Cardiovascular: Regular rate Abdomen: Soft Rectal: Exam deferred Laboratory Tests Past 24 Hrs 06/07/19 06/07/19 06/07/19 17:25 17:25 18:15 WBC 7.7 RBC 3.87 L Hgb 12.3 Hct 36.4 L MCV 94.1 MCH 31.8 MCHC 33.8 RDW Std Deviation 53.8 H RDW Coeff of [place] 15.9 H Plt Count 225 MPV 9.5 Immature Gran % (Auto) 0.800 Neut % (Auto) 83.0 H Lymph % (Auto) 8.2 L [place] % (Auto) 2.9 Eos % (Auto) 5.0 Baso % (Auto) 0.1 Absolute Neuts (auto) 6.4 Absolute Lymphs (auto) 0.63 L Nucleated RBC % 0 Sodium 136 Potassium 3.6 Chloride 99 Carbon Dioxide 29.0 Anion Gap 8 BUN 32 H Creatinine 1.57 H Estim Creat Clear Calc 21.06 Est GFR (MDRD) Af Amer 41 L Est GFR (MDRD) Non-Af 34 L BUN/Creatinine Ratio 20.4 H Glucose 107 H Calcium 8.4 L Total Bilirubin 0.80 AST 48 H ALT 42 Alkaline Phosphatase 117 Troponin I 0.018 Total Protein 6.6 Albumin 2.7 L Globulin 3.9 Albumin/Globulin Ratio 0.7 L Lipase 195 Urine Color Yellow Urine Clarity Cloudy Urine pH 7.0 Ur Specific [place] 1.010 Urine Protein 15 H Urine Glucose (UA) Normal Urine Ketones Negative Urine Occult Blood 10 H Urine Nitrite Negative Urine Bilirubin Negative Urine Urobilinogen Normal Ur Leukocyte Esterase 500 H Urine RBC 0-5 SEEN Urine WBC >100 SEEN Ur Squamous Epith Cells 0 SEEN Urine Bacteria 3+ Urine Mucus 0 SEEN 06/08/19 05:15 WBC RBC Hgb Hct MCV MCH MCHC RDW Std Deviation RDW Coeff of Kellie Plt Count MPV Immature Gran % (Auto) Neut % (Auto) Lymph % (Auto) [place] % (Auto) Eos % (Auto) Baso % (Auto) Absolute Neuts (auto) Absolute Lymphs (auto) Nucleated RBC % Sodium 139 Potassium 3.5 Chloride 101 Carbon Dioxide 31.0 Anion Gap 7 BUN 28 H Creatinine 1.41 H Estim Creat Clear Calc 23.88 Est GFR (MDRD) Af Amer 47 L Est GFR (MDRD) Non-Af 38 L BUN/Creatinine Ratio 19.9 Glucose 96 Calcium 8.0 L Total Bilirubin AST ALT Alkaline Phosphatase Troponin I Total Protein Albumin Globulin Albumin/Globulin Ratio Lipase Urine Color Urine Clarity Urine pH Ur Specific [place] Urine Protein Urine Glucose (UA) Urine Ketones Urine Occult Blood Urine Nitrite Urine Bilirubin Urine Urobilinogen Ur Leukocyte Esterase Urine RBC Urine WBC Ur Squamous Epith Cells Urine Bacteria Urine Mucus Assessment/Plan All Active Problems (Last Reviewed 06/07/19 @ 20:52 by Ugo Rosenbaum MD) Acute urinary retention (Acute) Generalized weakness (Acute) Acute exacerbation of chronic obstructive pulmonary disease (Resolved) Pneumococcal pneumonia (Resolved) Sepsis (Resolved) 78-year-old female multiple medical problems chronic debility presents the hospital with retention of urine I think this is multiple factors probably constipation weakness poor eating poor nutrition, she also may have a urinary tract infection. Recommend we treat her for urinary tract infection follow-up on the cultures. For now get a recommend we do self intermittent catheterization the nurses can catheterize the patient every 8 hours or for residual greater than 500 cc. If she is able to regain normal voiding she probably does not need a long-term catheter if she is still not able to urinate normally then she can continue with self intermittent catheterization if she gets discharged to a rehab facility. And will see how she progresses.
--- NOTE | 2019-06-08 09:30 | NM_ITS ---
CLINICAL: 78-year-old female with reported history of abdominal pain. RADIONUCLIDE HEPATOBILIARY SCINTIGRAPHY COMPARISON: CT of the abdomen-pelvis and abdominal ultrasound reports 06/07/2019 FINDINGS: Following the intravenous administration of 6.0 mCi of 99m Tc Mebrofenin, hepatobiliary images reveal: 1. Relatively prompt and homogeneous radiopharmaceutical concentration is noted by a normal sized liver. No parenchymal defects are identified. 2. Gallbladder activity is identified at 15 minutes post radiopharmaceutical administration. 3. Small intestinal tract is not visualized during 60 minutes of pre-CCK sequential imaging. Small bowel activity is identified following the administration of cholecystokinin. 4. Washout of the radiopharmaceutical by the hepatic parenchyma appears qualitatively normal. Cholecystokinin (0.02 ug/kg) was administered intravenously over a 30-minute period. The post CCK gallbladder ejection fraction calculated at 20 minutes following Cholecystokinin administration was noted to be < 5 % (normal greater than 35%). NM/Hepatobilliary Img w/Pharm Int IMPRESSION: 1. ABNORMAL 99m Tc Mebrofenin hepatobiliary imaging examination with Cholecystokinin. A. A gallbladder ejection fraction calculated to be less than 35% following the administration of Cholecystokinin is consistent with the presence of functional hepatobiliary disease (gallbladder and/or sphincter of Oddi dyskinesia) and/or organic hepatobiliary disease (chronic acalculous cholecystitis and/or cystic duct syndrome) in patients with intermediate to high pretest likelihoods of hepatobiliary illness. (Piter Aj et al, Journal of Nuclear Medicine 32:1695, 1990). Electronically Signed: Parmjit William DO at 12:33 EST Tel , Service support ,
[2019-06-08] MEDS: Ceftriaxone 1 GM/50 ML BAG IV (12:14)
[2019-06-08] MEDS: 0.9% Saline Lock 10 ML Syringe IV (12:14)
--- NOTE | 2019-06-08 12:55 | CASEMGMT ---
ANTHONY KRISHNA Face to Face with patient for initial transition planning/care coordination assessment. RN TOMI introduced self and role at [facility]. Patient lying in bed, alert and oriented, daughter at bedside. Patient willing to participate in assessment and is able to answer all questions appropriately. Care providers, pharmacy, and demographics verified. Patient wishes to discharge home and would like HHC at discharge. ANTHONY KRISHNA provided list of HHC agencies for patient and family to review. Patient states she has no further needs or concerns at this time. CM to follow for discharge planning needs that may arise. PCP: Carmen Specialists: Francis, pulmonology; Winston, cardiology. Virginia, nephrology Preferred Pharmacy: [facility] Insurance: INSOM[employer]IA Prescription Benefit: Yes Living Will/HPOA: none LNOK: , son and daughter Living Arrangements: Patient lives with and son in 2 story home with bed and bath on first floor. assists with showering. Transportation: son or daughter DME/HHC: Patient has shower chair, walker, wheelchair, and nebulizer at home. Denies previous HHC. Patient and family agreeable to HHC at discharge and are reviewing list. Disposition Plan: Patient to discharge home with HHC, family support, and follow-up plans in place. Marika PETERSON, RN, CM
--- NOTE | 2019-06-08 13:59 | PCM.PROGNOTE ---
Patient Problems: Active and Suspected Problems (Last Reviewed 06/07/19 @ 20:52 by Ugo Rosenbaum MD) Acute urinary retention (Acute) Generalized weakness (Acute) Subjective: Patient seen and examined. Daughter at bedside. Patient denies abdominal pain, nausea or vomiting. Reports poor appetite. Denies fever, chills. - Physical Exam Vitals/I&O's: Vital Signs Temp Pulse Resp BP Pulse Ox 97.6 F L 82 18 120/57 L 93 06/08/19 09:07 06/08/19 13:07 06/08/19 13:07 06/08/19 09:07 06/08/19 13:07 Oxygen Flow Rate (L/min) 1 Oxygen Delivery Method Room Air Weight: 104 lb 15.04 oz Body Mass Index (BMI) 17.6 Intake and Output for Last 24 Hours 06/06/19 06/07/19 06/08/19 23:59 23:59 23:59 Intake Total 579.17 / 939.17 1293 / 1293 Output Total 1100 / 1100 Balance 579.17 / 939.17 193 / 193 General: Alert, Oriented x3, Cooperative HEENT: Atraumatic, PERRLA, EOMI, Normocephalic Oral: Dry Mucosa Neck: Supple, No JVD, Negative Carotid Bruits Lungs: Clear to auscultation, Normal air movement Cardiovascular: Regular rate, Regular Rhythm, Normal S1, Normal S2, No murmurs Abdomen: Bowel Sounds Present, Soft, Non Tender, Non-Distended Extremities: No clubbing, No cyanosis, No edema, Capillary Refill Less than 3 Seconds Skin: No rashes, No breakdown Musculoskeletal: No Tenderness to Palpation of Joints or Extremities, Cachexia Neurological: Cranial nerves II-XII grossly intact, Neuro grossly intact Psych/Mental Status: Flat Affect Microbiology Past 72 Hours 06/07/19 18:15 Urine, Catheterized Urine Culture - Preliminary Gram positive organism Laboratory Results 06/07/19 17:25: WBC 7.7, RBC 3.87 L, Hgb 12.3, Hct 36.4 L, MCV 94.1, MCH 31.8, MCHC 33.8, RDW Std Deviation 53.8 H, RDW Coeff of Kellie 15.9 H, Plt Count 225, MPV 9.5, Immature Gran % (Auto) 0.800, Neut % (Auto) 83.0 H, Lymph % (Auto) 8.2 L, Kimble % (Auto) 2.9, Eos % (Auto) 5.0, Baso % (Auto) 0.1, Absolute Neuts (auto) 6.4, Absolute Lymphs (auto) 0.63 L, Nucleated RBC % 0 06/07/19 17:25: Sodium 136, Potassium 3.6, Chloride 99, Carbon Dioxide 29.0, Anion Gap 8, BUN 32 H, Creatinine 1.57 H, Estim Creat Clear Calc 21.06, Est GFR (MDRD) Af Amer 41 L, Est GFR (MDRD) Non-Af 34 L, BUN/Creatinine Ratio 20.4 H, Glucose 107 H, Calcium 8.4 L, Total Bilirubin 0.80, AST 48 H, ALT 42, Alkaline Phosphatase 117, Troponin I 0.018, Total Protein 6.6, Albumin 2.7 L, Globulin 3.9, Albumin/Globulin Ratio 0.7 L, Lipase 195 06/07/19 18:15: Urine Color Yellow, Urine Clarity Cloudy, Urine pH 7.0, Ur Specific Jackson 1.010, Urine Protein 15 H, Urine Glucose (UA) Normal, Urine Ketones Negative, Urine Occult Blood 10 H, Urine Nitrite Negative, Urine Bilirubin Negative, Urine Urobilinogen Normal, Ur Leukocyte Esterase 500 H, Urine RBC 0-5 SEEN, Urine WBC >100 SEEN, Ur Squamous Epith Cells 0 SEEN, Urine Bacteria 3+, Urine Mucus 0 SEEN 06/08/19 05:15: Sodium 139, Potassium 3.5, Chloride 101, Carbon Dioxide 31.0, Anion Gap 7, BUN 28 H, Creatinine 1.41 H, Estim Creat Clear Calc 23.88, Est GFR (MDRD) Af Amer 47 L, Est GFR (MDRD) Non-Af 38 L, BUN/Creatinine Ratio 19.9, Glucose 96, Calcium 8.0 L Current Medications Acetaminophen (Tylenol) 650 mg PO Q6H PRN PRN PRN Reason: Pain Score 1-3/Temp > 100.7 F Albuterol Sulfate (Ventolin Aerosols) 2.5 mg INHALATION Q2H PRN PRN PRN Reason: sob/wheezing Last Admin: 06/08/19 04:44 Dose: 2.5 mg Documented by: Albuterol/Ipratropium (Duoneb) 3 ml INHALATION Q6HWA.RT [facility] Last Admin: 06/08/19 13:07 Dose: 3 ml Documented by: Alprazolam (Xanax) 0.25 mg PO DAILY PRN PRN PRN Reason: ANXIETY Atorvastatin Calcium (Lipitor) 20 mg PO QHS [facility] Last Admin: 06/07/19 21:58 Dose: 20 mg Documented by: Budesonide (Pulmicort Aerosol) 0.5 mg INHALATION Q12H.RT [facility] Last Admin: 06/08/19 06:58 Dose: 0.5 mg Documented by: Calamine/Phenol (Calmoseptine Ointment) 1 applic TOPICAL TID [facility]; Protocol Last Admin: 06/08/19 05:53 Dose: 1 applicatio Documented by: Calcium Carbonate (Tums) 1,000 mg PO DAILYCM [facility] Cholecalciferol (Vitamin D) 1,000 unit PO DAILY [facility] Dextrose (D50w Syringe) 0 gm IV X1 PRN; Protocol PRN Reason: Hypoglycemia Diltiazem HCl (Cardizem Cd) 120 mg PO DAILY [facility] Enoxaparin Sodium (Lovenox) 30 mg SC DAILY@1000 [facility] Glucagon () 1 mg IM .X1 PRN PRN Reason: Hypoglycemia Sodium Chloride () 1,000 mls @ 60 mls/hr IV .[id number] [facility] Stop: 06/09/19 13:14 Last Infusion: 06/08/19 12:44 Dose: 60 mls/hr Documented by: Ceftriaxone Sodium (Rocephin) 1 gm in 50 mls @ 100 mls/hr IV Q24 [facility] Last Infusion: 06/08/19 12:44 Dose: Infused Documented by: Sodium Chloride () 250 mls @ 15 mls/hr IV .[id number] PRN PRN Reason: Saline Flush Nutritional Formula (Lactose Free) (Ensure Enlive) 120 ml PO 4X/DAY [facility] Last Admin: 06/07/19 22:01 Dose: 120 ml Documented by: Ondansetron HCl (Zofran) 4 mg IV Q8H PRN PRN PRN Reason: NAUSEA/VOMITING Ranolazine (Ranexa) 500 mg PO DAILY [facility] Senna/Docusate Sodium (Senokot-S, Martina-Colace) 2 tablet PO BID PRN PRN PRN Reason: Constipation Sodium Chloride () 10 - 40 ml IV UD PRN PRN Reason: SALINE FLUSH Last Admin: 06/08/19 12:14 Dose: 10 ml Documented by: Medical Necessity - Tobacco Use Smoking Status: Never smoker Tobacco Use: Cigarettes Assessment/Plan All Active Problems (Last Reviewed 06/07/19 @ 20:52 by Ugo Rosenbaum MD) Acute urinary retention (Acute) Generalized weakness (Acute) Acute exacerbation of chronic obstructive pulmonary disease (Resolved) Pneumococcal pneumonia (Resolved) Sepsis (Resolved) 1. Acute cystitis-continue IV Rocephin. Urine culture pending. 2. Urinary retention, possibly secondary to underlying UTI-urology following. Recommend straight cath for residual greater than 500 cc, daily 8 hours and as needed bladder scan. 3. Distended gallbladder/biliary sludge/abnormal HIDA scan-patient denies further abdominal pain. Feel abdominal pain was related to urinary retention as she was straight cathed for over a liter in ER. If patient has further symptoms, will consult general surgery. However, appears to be resolved currently. Recommend outpatient follow up. 4. Chronic kidney disease stage III- at baseline. 5. Dysphagia-speech therapy following. Continue with dietary modifications per speech therapy recommendations. 6. Chronic COPD-no acute exacerbation. As needed albuterol aerosol. 7. Hypertension-stable, continue Cardizem regimen. Lasix on hold. 8. Hyperlipidemia-continue statin regimen. 9. Multifocal atrial tachycardia-continue Cardizem regimen. 10. Stage I Pressure ulcer of coccyx and sacral area- Q2 turns, calmoseptine ordered. 11. Debility- PT/OT. 12. Severe protein calorie malnutrition-nutrition consult. DVT prophylaxis-Lovenox subcu This patient was seen by MARCELLUS Gibbs under the supervision of Dr. Geller.
[2019-06-08] MEDS: dilTIAZem CD 120 MG Capsule PO (14:27)
[2019-06-08] MEDS: Ranolazine 500 MG Tablet PO (14:27)
[2019-06-08] MEDS: ROFLUMILAST 500 MCG TABLET PO (14:28)
[2019-06-08] MEDS: Calcium Carbonate 500 MG Tablet 1000 MG PO (14:28)
[2019-06-08] MEDS: Enoxaparin 30 MG/0.3 ML Syringe SC (14:54)
--- NOTE | 2019-06-08 21:00 | NURSING ---
bladder scanned for >500. straight cath for 550cc of clear yellow urine. pt tolerated well
[2019-06-08] MEDS: Atorvastatin Calcium 20 MG Tablet PO (21:06)
[2019-06-09] VITALS (12 sets, daily range): BP systolic 106–136; BP diastolic 59–67; PULSE 84–102; RESP 16–20; TEMP 36.4–36.9; O2SAT 88–100
[2019-06-09] MEDS: Menthol/Lanolin/Calamine/Znox 113 GM Tube 1 APPLIC TOPICAL ×3 (05:30→20:38)
--- NOTE | 2019-06-09 05:55 | RAD_ITS ---
STUDY: AIR-CONTRAST UPPER GI SERIES. REASON FOR EXAM: Female, 78 years old. Dysphasia. Cough and wheezing. FLUOROSCOPY TIME (if supplied): ( 64 seconds ) minutes/seconds. 12 fluoroscopic spots were obtained. TECHNIQUE: Limited examination due to the patient's condition. The patient ingested barium. Imaging of the esophagus and stomach were obtained. COMPARISON: None. FINDINGS: There is evidence of a small sliding hiatal hernia with gastroesophageal reflux. Limited visualization of the stomach shows no abnormality. RAD/Upper GI w/BA Swallow IMPRESSION: Small sliding hiatal hernia with gastroesophageal reflux. Limited examination due to the patient's medical condition. Electronically Signed: Lee Maciel, at 10:01 EST , Service support ,
[2019-06-09] MEDS: Ipratropium/Albuterol Sulfate 3 ML AMPUL.NEB INHALATION ×4 (06:43→19:20)
[2019-06-09] MEDS: Budesonide Respules 0.5 MG/2 ML AMPUL.NEB. INHALATION ×3 (06:43→19:20)
[2019-06-09 06:58] LABS: Anion Gap 4 (5-15); BUN 20 mg/dL (7-18); BUN/Creat Ratio 16.9 RATIO (10-20); Calcium,Total 8.6 mg/dL (8.5-10.1); Chloride 107 mmol/L (98-107); Creatinine, Serum 1.18 mg/dL (0.55-1.02); EST Glomerular Filtration Rate 47 mL/min (>60); Est Glom Filt Rate - Afr Amer 57 mL/min (>60); Estimated Creatinine Clearance 29.56 ml/min; Glucose 99 mg/dL (74-106); Potassium 3.6 mmol/L (3.5-5.1); Sodium Level 142 mmol/L (136-145)
--- NOTE | 2019-06-09 09:02 | NURSING ---
Pt off unit for barium swallow at this time.
[2019-06-09] MEDS: dilTIAZem CD 120 MG Capsule PO (09:49)
[2019-06-09] MEDS: Enoxaparin 30 MG/0.3 ML Syringe SC (09:50)
[2019-06-09] MEDS: Ranolazine 500 MG Tablet PO (09:50)
[2019-06-09] MEDS: ROFLUMILAST 500 MCG TABLET PO (09:50)
[2019-06-09] MEDS: 0.9% Saline Lock 10 ML Syringe IV (09:51)
[2019-06-09] MEDS: Calcium Carbonate 500 MG Tablet 1000 MG PO (10:00)
[2019-06-09] MEDS: Ceftriaxone 1 GM/50 ML BAG IV (10:08)
--- NOTE | 2019-06-09 11:00 | CASEMGMT ---
ANTHONY KRISHNA in to discuss HHC options with patient and family. Patient and family still reviewing list of HHC agencies. ANTHONY KRISHNA to follow-up after lunch.
--- NOTE | 2019-06-09 13:00 | CASEMGMT ---
ANTHONY KRISHNA in to discuss discharge plans with patient and family. Patient and family would like [facility]. Patient and family also wanted to discuss possible SNF/TCU. ANTHONY KRISHNA updated family that SW would see if TCU had beds available. Patient and family state that if TCU does not have bed available patient wants to go home with [facility]. CM to continue to follow this patient and plan for a safe discharge.
--- NOTE | 2019-06-09 13:09 | PCM.PROGNOTE ---
Patient Problems: Active and Suspected Problems (Last Reviewed 06/07/19 @ 20:52 by Ugo Rosenbaum MD) Acute urinary retention (Acute) Generalized weakness (Acute) Subjective: Patient seen and examined. Still unable to void. Reports she has yet to have a bowel movement. Daughter at bedside. Patient requesting supplemental oxygen for comfort. - Physical Exam Vitals/I&O's: Vital Signs Temp Pulse Resp BP Pulse Ox 97.8 F 90 16 124/59 H 100 06/09/19 10:42 06/09/19 10:42 06/09/19 10:42 06/09/19 10:42 06/09/19 10:42 Oxygen Flow Rate (L/min) 1 Oxygen Delivery Method Room Air Weight: 103 lb 6.349 oz Body Mass Index (BMI) 17.6 Intake and Output for Last 24 Hours 06/07/19 06/08/19 06/09/19 23:59 23:59 23:59 Intake Total 579.17 / 939.17 2317 / 2317 931 / 931 Output Total 1650 / 1650 450 / 450 Balance 579.17 / 939.17 667 / 667 481 / 481 General: Alert, Oriented x3, Cooperative HEENT: Atraumatic, PERRLA, EOMI, Normocephalic Oral: Dry Mucosa Neck: Supple, No JVD, Negative Carotid Bruits Lungs: Clear to auscultation, Normal air movement Cardiovascular: Regular rate, Regular Rhythm, Normal S1, Normal S2, No murmurs Abdomen: Bowel Sounds Present, Soft, Non Tender, Distended Extremities: No clubbing, No cyanosis, No edema, Capillary Refill Less than 3 Seconds Skin: No rashes, No breakdown Musculoskeletal: No Tenderness to Palpation of Joints or Extremities, Cachexia Neurological: Cranial nerves II-XII grossly intact, Neuro grossly intact Psych/Mental Status: Normal Affect, Appropriate Microbiology Past 72 Hours 06/07/19 18:15 Urine, Catheterized Urine Culture - Preliminary Streptococcus agalactiae (B) Laboratory Results 06/09/19 06:05: Sodium 142, Potassium 3.6, Chloride 107, Carbon Dioxide 31.0, Anion Gap 4 L, BUN 20 H, Creatinine 1.18 H, Estim Creat Clear Calc 29.56, Est GFR (MDRD) Af Amer 57 L, Est GFR (MDRD) Non-Af 47 L, BUN/Creatinine Ratio 16.9, Glucose 99, Calcium 8.6 Current Medications Acetaminophen (Tylenol) 650 mg PO Q6H PRN PRN PRN Reason: Pain Score 1-3/Temp > 100.7 F Albuterol Sulfate (Ventolin Aerosols) 2.5 mg INHALATION Q2H PRN PRN PRN Reason: sob/wheezing Last Admin: 06/08/19 04:44 Dose: 2.5 mg Documented by: Albuterol/Ipratropium (Duoneb) 3 ml INHALATION Q6HWA.RT [facility] Last Admin: 06/09/19 06:43 Dose: 3 ml Documented by: Alprazolam (Xanax) 0.25 mg PO DAILY PRN PRN PRN Reason: ANXIETY Atorvastatin Calcium (Lipitor) 20 mg PO QHS [facility] Last Admin: 06/08/19 21:06 Dose: 20 mg Documented by: Budesonide (Pulmicort Aerosol) 0.5 mg INHALATION Q12H.RT [facility] Last Admin: 06/09/19 06:43 Dose: 0.5 mg Documented by: Calamine/Phenol (Calmoseptine Ointment) 1 applic TOPICAL TID [facility]; Protocol Last Admin: 06/09/19 05:30 Dose: 1 applicatio Documented by: [facility] Last Admin: 06/09/19 10:00 Dose: 1,000 mg Documented by: Cholecalciferol (Vitamin D) 1,000 unit PO DAILY [facility] Last Admin: 06/09/19 09:50 Dose: 1,000 unit Documented by: Dextrose (D50w Syringe) 0 gm IV X1 PRN; Protocol PRN Reason: Hypoglycemia Diltiazem HCl (Cardizem Cd) 120 mg PO DAILY [facility] Last Admin: 06/09/19 09:49 Dose: 120 mg Documented by: Enoxaparin Sodium (Lovenox) 30 mg SC DAILY@1000 [facility] Last Admin: 06/09/19 09:50 Dose: 30 mg Documented by: Glucagon () 1 mg IM .X1 PRN PRN Reason: Hypoglycemia Sodium Chloride () 1,000 mls @ 60 mls/hr IV .[id number] [facility] Stop: 06/09/19 13:14 Last Infusion: 06/09/19 12:19 Dose: 60 mls/hr Documented by: Ceftriaxone Sodium (Rocephin) 1 gm in 50 mls @ 100 mls/hr IV Q24 [facility] Last Infusion: 06/09/19 10:38 Dose: Infused Documented by: Sodium Chloride () 250 mls @ 15 mls/hr IV .[id number] PRN PRN Reason: Saline Flush Ondansetron HCl (Zofran) 4 mg IV Q8H PRN PRN PRN Reason: NAUSEA/VOMITING Ranolazine (Ranexa) 500 mg PO DAILY [facility] Last Admin: 06/09/19 09:50 Dose: 500 mg Documented by: Senna/Docusate Sodium (Senokot-S, Martina-Colace) 2 tablet PO BID PRN PRN PRN Reason: Constipation Sodium Chloride () 10 - 40 ml IV UD PRN PRN Reason: SALINE FLUSH Last Admin: 06/09/19 09:51 Dose: 10 ml Documented by: Tamsulosin HCl (Flomax) 0.4 mg PO BID@0830,1730 [facility] Medical Necessity - Tobacco Use Smoking Status: Never smoker Tobacco Use: Cigarettes Assessment/Plan All Active Problems (Last Reviewed 06/07/19 @ 20:52 by Ugo Rosenbaum MD) Acute urinary retention (Acute) Generalized weakness (Acute) Acute exacerbation of chronic obstructive pulmonary disease (Resolved) Pneumococcal pneumonia (Resolved) Sepsis (Resolved) 1. Acute Streptococcus agalactiae cystitis-continue IV Rocephin pending sensitivities. 2. Urinary retention, possibly secondary to underlying UTI-urology following. Recommend straight cath for residual greater than 500 cc, daily 8 hours and as needed bladder scan. Spoke with urology today, recommending continuing straight cath regimen. Initiated on Flomax 0.4 mg twice daily. 3. Distended gallbladder/biliary sludge/abnormal HIDA scan-patient denies further abdominal pain. Feel abdominal pain was related to urinary retention as she was straight cathed for over a liter in ER. If patient has further symptoms, will consult general surgery. However, appears to be resolved currently. Recommend outpatient follow up. 4. Constipation-patient reports she has not had a bowel movement in [address] on admission showed nonspecific ileus with diffuse fecal retention in the colon. Obtain abdominal x-ray given abdominal distention and patient still without bowel movement. Initiate bowel regimen. 5. Dysphagia-speech therapy following. Continue with dietary modifications per speech therapy recommendations. Patient underwent upper GI series which showed small sliding hiatal hernia with gastroesophageal reflux. Initiated on PPI. 6. Chronic COPD-no acute exacerbation. As needed albuterol aerosol. 7. Hypertension-stable, continue Cardizem regimen. Lasix on hold. 8. Hyperlipidemia-continue statin regimen. 9. Multifocal atrial tachycardia-continue Cardizem regimen. 10. Stage I Pressure ulcer of coccyx and sacral area- Q2 turns, calmoseptine ordered. 11. Debility- PT/OT. 12. Severe protein calorie malnutrition-nutrition consult. 13. Chronic kidney disease stage III- at baseline. DVT prophylaxis-Lovenox subcu Discharge planning: Anticipate home with home health pending medically stable. This patient was seen by MARCELLUS Gibbs under the supervision of Dr. Geller.
--- NOTE | 2019-06-09 13:10 | CASEMGMT ---
Addendum entered by Marika Man 06/09/19 14:52: SW received call from [facility]u in TCU stating she has no beds available this weekend. ANTHONY Whitney updated pt's family. Pt is off floor for x-ray and then will be back to floor. Pt's family would like pt to go to SNF but at this time pt has not been agreeable to SNF. SW to continue to follow. Addendum entered by Marika Man 06/09/19 14:16: SW has not received call back regarding TCU referral so SW placed a call to B[facility]u in TCU and left her a message regarding referral. Original Note: Social Work Note ANTHONY Whitney updated this worker that pt would be agreeable to TCU at discharge. SW placed a call to referral line and left message regarding referral. SW waiting for call back. Marika Man UTILITY MECHANIC SUPERVISOR, FEATHER WASHER
--- NOTE | 2019-06-09 14:45 | CASEMGMT ---
ANTHONY KRISHNA updated by EMMETT that TCU does not have any beds available. Patient at xray. Daughter and in room and updated regarding no bed available. ANTHONY KRISHNA provided list of other SNF in area for patient and family to review. ANTHONY KRISHNA will follow-up with patient when she returns to room.
--- NOTE | 2019-06-09 14:45 | RAD_ITS ---
STUDY: X-RAY - ABDOMEN/PELVIS REASON FOR EXAM: Female, 78 years old. Abdominal pain and constipation. TECHNIQUE: Single AP view of the abdomen / pelvis. COMPARISON: None. FINDINGS: Oral contrast from a recent CT scan is seen throughout nondilated small bowel loops in the right hemicolon. A large amount of material is seen in the right hemicolon. The visualized liver, spleen and kidneys are grossly normal in size and morphology. Normal soft tissue structures. There are diffuse degenerative changes of the visualized lumbar spine. RAD/Abdomen Single View (Portable) IMPRESSION: Oral contrast is seen within nondilated small bowel loops in the right hemicolon moderate amount of fecal material is seen in the right hemicolon. Electronically Signed: Lee Maciel, at 15:21 EST , Service support ,
--- NOTE | 2019-06-09 14:59 | NURSING ---
[facility] called and notified this RN that they were contacted by patient's daughter to take care of patient after discharge. Notified by this RN that unsure when pt will be d/c'ed and that there is a note in computer by social media editor stating plan is for TCU after d/c. Nurse requested [facility] phone number- same given.
[2019-06-09] MEDS: Magnesium Citrate 300 ML 150 ML PO (15:15)
[2019-06-09] MEDS: Pantoprazole Sodium 40 MG Tablet PO ×2 (15:16→20:28)
[2019-06-09] MEDS: Tamsulosin HCl 0.4 MG Capsule PO ×2 (15:16→17:34)
--- NOTE | 2019-06-09 15:20 | CASEMGMT ---
ANTHONY KRISHNA received call from [facility] and updated that patient may go to SNF at discharge and will updated of discharge plan and send referral if appropriate. ANTHONY KRISHNA in to patient's room and updated patient of no beds available in TCU. ANTHONY KRISHNA updated patient of other facilities and family discussed concerns of patient going home and would like patient to go to [facility] if beds available. ANTHONY KRISHNA asked patient if she would like to go to [facility] at discharge and patient agreeable to have referral sent to [facility]. ANTHONY KRISHNA updated SW regarding request for referral be sent to [facility].
--- NOTE | 2019-06-09 15:38 | CASEMGMT ---
Addendum entered by Marika Man 06/09/19 16:28: EMMETT placed a call to Hollie at [facility] and asked for update regarding referral as this worker is leaving for the weekend. Hollie states she is able to accept pt tomorrow. ANTHONY Whitney updated who updated pt and pt's family. Hollie asks that transportation be arranged a few hours out before pt discharges tomorrow as they are low on staffing on the weekends. EMMETT completed [facility] in [facility]. Original in SNF folder. Green sheet and transportation form on pt's chart. Plan: [facility] tomorrow skilled Original Note: Social Work Note ANTHONY Whitney updated this worker that pt and pt's family are agreeable to [facility] for short term rehabilitation. EMMETT placed a call to Hollie in admissions at [facility] and provided referral. EMMETT faxed referral. Plan: [facility] tomorrow pending acceptance Marika Man MOVING WORKER, SOFTWARE QUALITY ASSURANCE SPECIALIST
[2019-06-09] MEDS: Bisacodyl 10 MG Suppository RECTAL (20:27)
[2019-06-09] MEDS: Atorvastatin Calcium 20 MG Tablet PO (20:27)
[2019-06-10] VITALS (34 sets, daily range): BP systolic 72–98; BP diastolic 43–75; PULSE 77–141; RESP 15–24; TEMP 36.1–36.8; O2SAT 95–100
--- NOTE | 2019-06-10 04:21 | EKG12_ITS ---
Test Reason : Blood Pressure : / mmHG Vent. Rate : 114 BPM Atrial Rate : 092 BPM P-R Int : 000 ms QRS Dur : 080 ms QT Int : 354 ms P-R-T Axes : 000 035 103 degrees QTc Int : 487 ms Atrial fibrillation with rapid ventricular response Nonspecific ST and T wave abnormality Abnormal ECG When compared with ECG of 10-JUN-2019 04:32, MANUAL COMPARISON REQUIRED, DATA IS UNCONFIRMED Confirmed by STAN BOOTHE ([id number]), supervising film or videotape editor ANNA HERNANDEZ ([id number]) on 06/16/2019 11:30:38 AM Referred By: Ugo Rosenbaum Confirmed By:STAN BOOTHE
--- NOTE | 2019-06-10 04:42 | NURSING ---
0426: TELE MONITOR ALARMING TACHYCARDIA WITH HR UP TO 140'S. PT DENIES C/O CP, SOB, WAS RESTING IN BED AT TIME OF ONSET. CALLED FOR EKG. PAGED HOSPITALIST AND OBTAINED ORDERS FOR BMP, MAG, CBC, EKG AND PO POTASSIUM 40 MEQ X 1 DOSE NOW FOR YESTERDAYS POTASSIUM LEVEL OF 3.6. EKG RESULTS= STACH WITH PVC'S.
--- NOTE | 2019-06-10 04:42 | PCM.PN.BLA ---
Progress Note Nurse reported patient is having sinus tach in the 130s on monitor while at rest. Stat EKG initiated by nurse. Order to check magnesium level. Previous potassium was 3.6. Order to replace with 40 mg of potassium. EKG obtained showed sinus tach with rate of 119; and with some PVCs; QTC of 509. EKG on June 07, 2019 showed sinus rhythm with PACs and QTC prolongation of 503. Because of elongated QTC. PRN Zofran order discontinued. Patient is on Cardizem 120 mg daily for history of SVT. Will not increase Cardizem at this point since she has had some low blood pressures. Give normal saline 100 mL's per hour for 10 hours. STROKE Vital Signs/Narrative: Vital Signs Pulse Resp Pulse Ox 06/10/19 04:08 141 H 06/10/19 03:00 108 H 15 97
[2019-06-10 04:52] LABS: Absolute Lymphocyte Count 0.59 X10^3/uL (0.83-4.51); Absolute Neutrophil Count 4.8 X10^3/uL (2.0-7.7); Basophil# 0.02 X10^3/uL; Basophil% 0.3 % (0-1); Eosinophil# 0.27 X10^3/uL; Eosinophils% 4.6 % (0-5); Hematocrit 35.3 % (37-47); Hemoglobin 11.7 g/dL (12.0-15.0); Lymphocyte # 0.59 X10^3/ul (4.0); Mean Corp Hgb Conc 33.1 g/dL (32-36); Mean Corpuscular Hgb 32.2 pg (27.0-32.0); Mean Corpuscular Volume 97.2 fL (81-99); Mean Platelet Vol. 9.4 fl (6.2-12.0); Monocyte# 0.21 X10^3/uL; Monocyte% 3.5 % (0-10); NRBC Flagged by Analyzer 0 % (0-5); Neutrophil # 4.79 X10^3/uL (2.7-7.7); Neutrophil % 80.9 % (47-70); POSITIVE DIFFERENTIAL YES; Platelet Count 189 K/mm3 (150-450); RBC Distribution Width CV 16.6 % (11.6-14.6); RBC Distribution Width SD 59.2 fl (35.1-43.9); Red Blood Count 3.63 M/mm3 (4.2-5.4); White Blood Count 5.9 K/mm3 (4.4-11.0)
[2019-06-10 04:57] LABS: Differential Indicated SCAN CRITERIA MET
[2019-06-10] MEDS: 0.9% Normal Saline 1,000 ML 100 ML IV (05:00)
[2019-06-10 05:17] LABS: BUN 19 mg/dL (7-18); EST Glomerular Filtration Rate 42 mL/min (>60); Estimated Creatinine Clearance 26.83 ml/min; Glucose 108 mg/dL (74-106)
[2019-06-10 05:18] LABS: Anion Gap 6 (5-15); BUN/Creat Ratio 14.6 RATIO (10-20); Calcium,Total 8.8 mg/dL (8.5-10.1); Chloride 105 mmol/L (98-107); Est Glom Filt Rate - Afr Amer 51 mL/min (>60); Magnesium 2.4 mg/dL (1.6-2.6); Sodium Level 144 mmol/L (136-145)
[2019-06-10] MEDS: Menthol/Lanolin/Calamine/Znox 113 GM Tube 1 APPLIC TOPICAL ×3 (06:44→21:11)
[2019-06-10] MEDS: Budesonide Respules 0.5 MG/2 ML AMPUL.NEB. INHALATION (07:04)
[2019-06-10] MEDS: Ipratropium/Albuterol Sulfate 3 ML AMPUL.NEB INHALATION (07:04)
[2019-06-10] MEDS: Pantoprazole Sodium 40 MG Tablet PO ×2 (07:35→21:11)
[2019-06-10] MEDS: Tamsulosin HCl 0.4 MG Capsule PO ×2 (07:35→17:00)
[2019-06-10] MEDS: Calcium Carbonate 500 MG Tablet 1000 MG PO (07:35)
[2019-06-10] MEDS: dilTIAZem CD 120 MG Capsule PO (07:35)
[2019-06-10] MEDS: Ranolazine 500 MG Tablet PO (07:37)
[2019-06-10] MEDS: ROFLUMILAST 500 MCG TABLET PO (07:37)
[2019-06-10] MEDS: Enoxaparin 30 MG/0.3 ML Syringe SC (07:44)
[2019-06-10] MEDS: ALPRAZolam 0.25 MG Tablet PO (07:45)
--- NOTE | 2019-06-10 09:04 | NURSING ---
pt down for x ray
--- NOTE | 2019-06-10 09:11 | RAD_ITS ---
STUDY: X-RAY CHEST REASON FOR EXAM: Female, 78 years old. Dyspnea TECHNIQUE: AP COMPARISON: 06/07/2019 FINDINGS: Lobular densities projecting over the right clavicle are likely on the patient, new. EKG leads project over the chest. Increasing reticulation ground glass opacity in the lung bases since the prior study. No cavitating process. There is no demonstrated pleural abnormality. Normal size heart. Normal mediastinum and cecile. Normal visualized pulmonary arteries. There is atherosclerotic calcification of the aortic arch with tortuosity. There is demineralization of the osseous structures. Normal visualized ribs, clavicles, and shoulders. There is no demonstrated abnormality of the visualized soft tissue structures of the upper abdomen. RAD/Chest PA and Lateral IMPRESSION: Increasing bibasilar opacities may represent atelectasis versus early pneumonitis/edema. Electronically Signed: Jan Weston MD (Brooks) at 13:37 EST , Service support ,
--- NOTE | 2019-06-10 09:20 | NURSING ---
called report to pcu
[2019-06-10 09:31] LABS: BNP,B-Type NATRIURETIC PEPTIDE 141.4 pg/mL (0-100)
--- NOTE | 2019-06-10 10:04 | NURSING ---
transferred pt to pcu rm [id number]
[2019-06-10] MEDS: Ceftriaxone 1 GM/50 ML BAG IV (10:16)
--- NOTE | 2019-06-10 10:17 | EKG12_ITS ---
Test Reason : RHYTHM CHANGE Blood Pressure : / mmHG Vent. Rate : 076 BPM Atrial Rate : 076 BPM P-R Int : 140 ms QRS Dur : 082 ms QT Int : 374 ms P-R-T Axes : 089 047 090 degrees QTc Int : 420 ms Sinus rhythm with Premature atrial complexes ST & T wave abnormality, consider anterior ischemia Abnormal ECG When compared with ECG of 10-JUN-2019 10:58, MANUAL COMPARISON REQUIRED, DATA IS UNCONFIRMED Confirmed by STAN BOOTHE ([id number]), metropolitan editor ANNA HERNANDEZ ([id number]) on 06/16/2019 11:31:06 AM Referred By: Ugo Rosenbaum Confirmed By:STAN BOOTHE
[2019-06-10] MEDS: Digoxin 250 MCG/ML Ampul IV (10:35)
[2019-06-10] MEDS: Furosemide 20 MG/2 ML VIAL IV (10:37)
[2019-06-10] MEDS: 0.9% Saline Lock 10 ML Syringe IV (10:37)
[2019-06-10] MEDS: Enoxaparin 60 MG/0.6 ML Syringe 50 MG SC (10:40)
--- NOTE | 2019-06-10 11:54 | PN_ITS ---
Patient Problems: Active and Suspected Problems (Last Reviewed 06/07/19 @ 20:52 by Ugo Rosenbaum MD) Acute urinary retention (Acute) Generalized weakness (Acute) Subjective: Patient seen and examined. Went into atrial fibrillation with RVR early this morning. Reports increased shortness of breath. Denies chest pain. Reports she moved her bowels this morning. Still unable to urinate. - Physical Exam Vitals/I&O's: Vital Signs Temp Pulse Resp BP Pulse Ox 97.4 F L 115 H 23 H 74/55 L 98 06/10/19 10:15 06/10/19 10:47 06/10/19 10:47 06/10/19 10:47 06/10/19 10:47 Oxygen Flow Rate (L/min) 2 Oxygen Delivery Method Nasal Cannula Weight: 103 lb 2.821 oz Body Mass Index (BMI) 17.6 Intake and Output for Last 24 Hours 06/08/19 06/09/19 06/10/19 23:59 23:59 23:59 Intake Total 2317 / 2317 1196 / 1246 745.67 / 745.67 Output Total 1650 / 1650 450 / 450 Balance 667 / 667 746 / 796 745.67 / 745.67 General: Alert, Oriented x3, Cooperative HEENT: Atraumatic, PERRLA, EOMI, Normocephalic Oral: Dry Mucosa Neck: Supple, No JVD, Negative Carotid Bruits Lungs: Clear to auscultation, Diminished Cardiovascular: - - Atrial fibrillation/mulifocal atrial tachycardia Abdomen: Bowel Sounds Present, Soft, Non Tender, Non-Distended Extremities: No clubbing, No edema, Capillary Refill Less than 3 Seconds, - - Distal fingers and toes cyanotic appearance. Skin: No rashes, No breakdown Musculoskeletal: No Tenderness to Palpation of Joints or Extremities Neurological: Cranial nerves II-XII grossly intact, Neuro grossly intact Psych/Mental Status: Normal Affect, Appropriate Microbiology Past 72 Hours 06/07/19 18:15 Urine, Catheterized Urine Culture - Final Streptococcus agalactiae (B) Laboratory Results 06/10/19 04:36: WBC 5.9, RBC 3.63 L, Hgb 11.7 L, Hct 35.3 L, MCV 97.2, MCH 32.2 H, MCHC 33.1, RDW Std Deviation 59.2 H, RDW Coeff of Kellie 16.6 H, Plt Count 189, MPV 9.4, Immature Gran % (Auto) 0.700, Neut % (Auto) 80.9 H, Lymph % (Auto) 10.0 L, Baker % (Auto) 3.5, Eos % (Auto) 4.6, Baso % (Auto) 0.3, Absolute Neuts (auto) 4.8, Absolute Lymphs (auto) 0.59 L, Nucleated RBC % 0 06/10/19 04:36: Sodium 144, Potassium 4.0, Chloride 105, Carbon Dioxide 33.0 H, Anion Gap 6, BUN 19 H, Creatinine 1.30 H, Estim Creat Clear Calc 26.83, Est GFR (MDRD) Af Amer 51 L, Est GFR (MDRD) Non-Af 42 L, BUN/Creatinine Ratio 14.6, Glucose 108 H, Calcium 8.8, Magnesium 2.4 06/10/19 04:36: B-Natriuretic Peptide 141.4 H 06/10/19 10:27: Troponin I 0.027 Current Medications Acetaminophen (Tylenol) 650 mg PO Q6H PRN PRN PRN Reason: Pain Score 1-3/Temp > 100.7 F Albuterol Sulfate (Ventolin Aerosols) 2.5 mg INHALATION Q2H PRN PRN PRN Reason: sob/wheezing Last Admin: 06/08/19 04:44 Dose: 2.5 mg Documented by: Alprazolam (Xanax) 0.25 mg PO DAILY PRN PRN PRN Reason: ANXIETY Last Admin: 06/10/19 07:45 Dose: 0.25 mg Documented by: Atorvastatin Calcium (Lipitor) 20 mg PO QHS [facility] Last Admin: 06/09/19 20:27 Dose: 20 mg Documented by: Budesonide (Pulmicort Aerosol) 0.5 mg INHALATION Q12H.RT [facility] Last Admin: 06/10/19 07:04 Dose: 0.5 mg Documented by: Calamine/Phenol (Calmoseptine Ointment) 1 applic TOPICAL TID [facility]; Protocol Last Admin: 06/10/19 06:44 Dose: 1 applicatio Documented by: Calcium Carbonate (Tums) 1,000 mg PO DAILYCM [facility] Last Admin: 06/10/19 07:35 Dose: 1,000 mg Documented by: Cholecalciferol (Vitamin D) 1,000 unit PO DAILY [facility] Last Admin: 06/10/19 07:38 Dose: 1,000 unit Documented by: Dextrose (D50w Syringe) 0 gm IV X1 PRN; Protocol PRN Reason: Hypoglycemia Diltiazem HCl (Cardizem Cd) 120 mg PO DAILY [facility] Last Admin: 06/10/19 07:35 Dose: 120 mg Documented by: Enoxaparin Sodium (Lovenox) 50 mg SC Q24 [facility] Furosemide (Lasix) 20 mg IV BID@1000,1800 [facility] Glucagon () 1 mg IM .X1 PRN PRN Reason: Hypoglycemia Guaifenesin (Mucinex) 1,200 mg PO BID [facility] Ceftriaxone Sodium (Rocephin) 1 gm in 50 mls @ 100 mls/hr IV Q24 [facility] Last Infusion: 06/10/19 10:51 Dose: Infused Documented by: Sodium Chloride () 250 mls @ 15 mls/hr IV .[id number] PRN PRN Reason: Saline Flush Diltiazem HCl 125 mg/ Dextrose 125 mls @ 5 mls/hr IV .Q25H [facility]; Protocol Last Admin: 06/10/19 10:47 Dose: 5 mg/hr, 5 mls/hr Documented by: Ipratropium [place] (Atrovent) 0.5 mg INHALATION Q4H.RT [facility] Pantoprazole Sodium (Protonix) 40 mg PO BID [facility] Last Admin: 06/10/19 07:35 Dose: 40 mg Documented by: Ranolazine (Ranexa) 500 mg PO DAILY [facility] Last Admin: 06/10/19 07:37 Dose: 500 mg Documented by: Senna/Docusate Sodium (Senokot-S, Martina-Colace) 2 tablet PO BID PRN PRN PRN Reason: Constipation Sodium Chloride () 10 - 40 ml IV UD PRN PRN Reason: SALINE FLUSH Last Admin: 06/10/19 10:37 Dose: 10 ml Documented by: Tamsulosin HCl (Flomax) 0.4 mg PO BID@0830,1730 [facility] Last Admin: 06/10/19 07:35 Dose: 0.4 mg Documented by: Medical Necessity - Tobacco Use Smoking Status: Never smoker Tobacco Use: Cigarettes Assessment/Plan All Active Problems (Last Reviewed 06/07/19 @ 20:52 by Ugo Rosenbaum MD) Acute urinary retention (Acute) Generalized weakness (Acute) Acute exacerbation of chronic obstructive pulmonary disease (Resolved) Pneumococcal pneumonia (Resolved) Sepsis (Resolved) 1. Atrial fibrillation with RVR, underlying multifocal atrial tachycardia-placed on Cardizem drip. Patient's oral Cardizem regimen decreased on admission, she normally takes 240 mg daily. Resume home oral Cardizem regimen once rate is better controlled. Troponin negative. Patient had recent echo May 2019 which demonstrated an EF of 65%, mild mitral valve insufficiency, mild tricuspid valve insufficiency, RVSP 84 mmHg. RVSP significantly increased from prior echo. 2. Acute Streptococcus agalactiae cystitis-continue IV Rocephin. 3. Urinary retention, possibly secondary to underlying UTI-urology following. Recommend straight cath for residual greater than 500 cc, daily 8 hours and as needed bladder scan. Initiated on Flomax 0.4 mg twice daily. Pure wick in place. 4. Distended gallbladder/biliary sludge/abnormal HIDA scan-patient denies further abdominal pain. Feel abdominal pain was related to urinary retention as she was straight cathed for over a liter in ER. If patient has further symptoms, will consult general surgery. However, appears to be resolved currently. Recommend outpatient follow up. 5. Constipation-Abdominal CT on admission showed nonspecific ileus with diffuse fecal retention in the colon. Abdominal x-ray showed moderate amount of fecal material in the right hemicolon. Patient had bowel movement this morning following mag citrate x1 and Dulcolax suppository. 6. Dysphagia-speech therapy following. Continue with dietary modifications per speech therapy recommendations. Patient underwent upper GI series which showed small sliding hiatal hernia with gastroesophageal reflux. Initiated on PPI. 7. Chronic COPD-no acute exacerbation. As needed albuterol aerosol. 8. Hypertension-stable, continue Cardizem regimen. 9. Hyperlipidemia-continue statin regimen. 10. Stage I Pressure ulcer of coccyx and sacral area- Q2 turns, calmoseptine ordered. 11. Debility- PT/OT. 12. Severe protein calorie malnutrition-nutrition consult. 13. Chronic kidney disease stage III- at baseline. DVT prophylaxis-Lovenox subcu Discharge planning: SNF when medically stable. This patient was seen by MARCELLUS Gbibs under the supervision of Dr. Geller.
--- NOTE | 2019-06-10 14:11 | EKG12_ITS ---
Test Reason : AM EKG Blood Pressure : / mmHG Vent. Rate : 086 BPM Atrial Rate : 086 BPM P-R Int : 124 ms QRS Dur : 084 ms QT Int : 350 ms P-R-T Axes : 064 045 210 degrees QTc Int : 418 ms Normal sinus rhythm ST & T wave abnormality, consider anterior ischemia Abnormal ECG When compared with ECG of 10-JUN-2019 14:13, MANUAL COMPARISON REQUIRED, DATA IS UNCONFIRMED Confirmed by STAN BOOTHE ([id number]), editor trade journal ANNA HERNANDEZ ([id number]) on 06/16/2019 11:32:46 AM Referred By: Ugo Rosenbaum Confirmed By:STAN BOOTHE
[2019-06-10] MEDS: Acetaminophen 325 MG Tablet 650 MG PO (14:58)
[2019-06-10] MEDS: 0.9% Normal Saline 1,000 ML 75 ML IV (17:45)
[2019-06-10] MEDS: Atorvastatin Calcium 20 MG Tablet PO (21:11)
[2019-06-11] VITALS (15 sets, daily range): BP systolic 91–147; BP diastolic 54–72; PULSE 80–111; RESP 16–20; TEMP 36.1–37.2; O2SAT 96–100
[2019-06-11] MEDS: Ipratropium 0.5 MG/2.5 ML SOLUTION INHALATION ×4 (01:14→19:41)
--- NOTE | 2019-06-11 05:55 | EKG12_ITS ---
Test Reason : TACHYCARDIA Blood Pressure : / mmHG Vent. Rate : 119 BPM Atrial Rate : 119 BPM P-R Int : 152 ms QRS Dur : 082 ms QT Int : 362 ms P-R-T Axes : 086 020 113 degrees QTc Int : 509 ms Sinus tachycardia with occasional Premature ventricular complexes ST depression, consider subendocardial injury Nonspecific T wave abnormality Abnormal ECG When compared with ECG of 07-JUN-2019 17:56, MANUAL COMPARISON REQUIRED, DATA IS UNCONFIRMED Confirmed by COLLEEN BUSTAMANTE, DEBBIE ([id number]), newspaper editor managing CHAD DENNISON ([id number]) on 06/20/2019 1:21:02 PM Referred By: Ugo Rosenbaum Confirmed By:MICKY MACIAS MD
[2019-06-11 06:27] LABS: Anion Gap 5 (5-15); BUN 22 mg/dL (7-18); BUN/Creat Ratio 14.4 RATIO (10-20); Calcium,Total 8.4 mg/dL (8.5-10.1); Chloride 109 mmol/L (98-107); Creatinine, Serum 1.53 mg/dL (0.55-1.02); EST Glomerular Filtration Rate 35 mL/min (>60); Est Glom Filt Rate - Afr Amer 42 mL/min (>60); Estimated Creatinine Clearance 22.75 ml/min; Glucose 91 mg/dL (74-106); Magnesium 2.2 mg/dL (1.6-2.6); Sodium Level 143 mmol/L (136-145)
[2019-06-11] MEDS: Budesonide Respules 0.5 MG/2 ML AMPUL.NEB. INHALATION ×2 (06:53→19:42)
[2019-06-11] MEDS: dilTIAZem CD 120 MG Capsule PO ×2 (08:30→22:43)
[2019-06-11] MEDS: Ceftriaxone 1 GM/50 ML BAG IV (08:30)
[2019-06-11] MEDS: 0.9% Saline Lock 10 ML Syringe IV ×2 (08:30→08:35)
[2019-06-11] MEDS: Calcium Carbonate 500 MG Tablet 1000 MG PO (08:32)
[2019-06-11] MEDS: Pantoprazole Sodium 40 MG Tablet PO ×2 (08:32→22:43)
[2019-06-11] MEDS: ROFLUMILAST 500 MCG TABLET PO (08:32)
[2019-06-11] MEDS: Tamsulosin HCl 0.4 MG Capsule PO ×2 (08:32→17:17)
[2019-06-11] MEDS: Ranolazine 500 MG Tablet PO (08:37)
[2019-06-11] MEDS: guaiFENesin 1,200 MG Tablet 1200 MG PO ×2 (08:37→22:43)
[2019-06-11] MEDS: Enoxaparin 60 MG/0.6 ML Syringe 50 MG SC (08:44)
[2019-06-11] MEDS: Senna/Docusate Sodium 1 Tablet 2 TABLET PO (08:44)
[2019-06-11] MEDS: ALPRAZolam 0.25 MG Tablet PO (10:31)
[2019-06-11] MEDS: dilTIAZem 60 MG Tablet 30 MG PO (11:20)
--- NOTE | 2019-06-11 12:40 | RAD_ITS ---
STUDY: X-RAY - ABDOMEN/PELVIS REASON FOR EXAM: Female, 78 years old. Distention TECHNIQUE: Single AP view of the abdomen / pelvis. COMPARISON: Upper GI dated 06/09/2019 FINDINGS: Normal visualized lung bases. Oral contrast from upper GI exam is seen within the distal small bowel as well as colon. No evidence of small bowel obstruction. Some fecal retention noted throughout the colon There is no demonstrated free abdominal air. The visualized liver, spleen and kidneys are grossly normal in size and morphology. Normal soft tissue structures. There are diffuse degenerative changes of the visualized lumbar spine. RAD/Abdomen Single View (Portable) IMPRESSION: No evidence of obstruction. Electronically Signed: Lucas Barber DO at 13:22 EST Tel , Service support ,
--- NOTE | 2019-06-11 13:45 | PN_ITS ---
Patient Problems: Active and Suspected Problems (Last Reviewed 06/07/19 @ 20:52 by Ugo Rosenbaum MD) Acute urinary retention (Acute) Generalized weakness (Acute) Subjective: Patient seen and examined. Daughter at bedside. Discussed plan of care with patient and daughter. Discussed palliative, hospice services and they would like to discuss this further amongst themselves. Patient complains of abdominal distention and discomfort. Denies other current complaints. - Physical Exam Vitals/I&O's: Vital Signs Temp Pulse Resp BP Pulse Ox 97.0 F L 88 20 H 119/67 96 06/11/19 11:20 06/11/19 12:51 06/11/19 12:51 06/11/19 11:20 06/11/19 11:20 Oxygen Flow Rate (L/min) 2 Oxygen Delivery Method Nasal Cannula Weight: 102 lb 11.767 oz Body Mass Index (BMI) 17.6 Intake and Output for Last 24 Hours 06/09/19 06/10/19 06/11/19 23:59 23:59 23:59 Intake Total 1196 / 1246 1526.01 / 1526.01 1385 / 1385 Output Total 450 / 450 550 / 550 100 / 100 Balance 746 / 796 976.01 / 976.01 1285 / 1285 General: Alert, Oriented x3, Cooperative, - - Appears fatigued HEENT: Atraumatic, PERRLA, EOMI, Normocephalic Oral: Dry Mucosa Neck: Supple, No JVD, Negative Carotid Bruits Lungs: Clear to auscultation, Normal air movement Cardiovascular: Regular rate, Regular Rhythm, Normal S1, Normal S2, No murmurs, - - Paroxysmal atrial fibrillation multifocal atrial tachycardia/ Abdomen: Bowel Sounds Present, Soft, Distended, Tender Extremities: No clubbing, No edema, Capillary Refill Less than 3 Seconds, - - Distal fingers and toes appear cyanotic Skin: No rashes, No breakdown Musculoskeletal: No Tenderness to Palpation of Joints or Extremities Neurological: Cranial nerves II-XII grossly intact, Neuro grossly intact Psych/Mental Status: Flat Affect Microbiology Past 72 Hours 06/07/19 18:15 Urine, Catheterized Urine Culture - Final Streptococcus agalactiae (B) Laboratory Results 06/10/19 13:35: Troponin I 0.039 06/10/19 16:42: Troponin I 0.039 06/11/19 05:49: Sodium 143, Potassium 4.0, Chloride 109 H, Carbon Dioxide 29.0, Anion Gap 5, BUN 22 H, Creatinine 1.53 H, Estim Creat Clear Calc 22.75, Est GFR (MDRD) Af Amer 42 L, Est GFR (MDRD) Non-Af 35 L, BUN/Creatinine Ratio 14.4, Glucose 91, Calcium 8.4 L, Magnesium 2.2 Current Medications Acetaminophen (Tylenol) 650 mg PO Q6H PRN PRN PRN Reason: Pain Score 1-3/Temp > 100.7 F Last Admin: 06/10/19 14:58 Dose: 650 mg Documented by: Albuterol Sulfate (Ventolin Aerosols) 2.5 mg INHALATION Q2H PRN PRN PRN Reason: sob/wheezing Last Admin: 06/08/19 04:44 Dose: 2.5 mg Documented by: Alprazolam (Xanax) 0.25 mg PO DAILY PRN PRN PRN Reason: ANXIETY Last Admin: 06/11/19 10:31 Dose: 0.25 mg Documented by: Atorvastatin Calcium (Lipitor) 20 mg PO QHS [facility] Last Admin: 06/10/19 21:11 Dose: 20 mg Documented by: Budesonide (Pulmicort Aerosol) 0.5 mg INHALATION Q12H.RT [facility] Last Admin: 06/11/19 06:53 Dose: 0.5 mg Documented by: Calamine/Phenol (Calmoseptine Ointment) 1 applic TOPICAL TID [facility]; Protocol Last Admin: 06/11/19 06:00 Dose: Not Given Documented by: Calcium Carbonate (Tums) 1,000 mg PO DAILYCM [facility] Last Admin: 06/11/19 08:32 Dose: 1,000 mg Documented by: Cholecalciferol (Vitamin D) 1,000 unit PO DAILY [facility] Last Admin: 06/11/19 08:33 Dose: 1,000 unit Documented by: Dextrose (D50w Syringe) 0 gm IV X1 PRN; Protocol PRN Reason: Hypoglycemia Diltiazem HCl (Cardizem Cd) 120 mg PO BID [facility] Last Admin: 06/11/19 08:30 Dose: 120 mg Documented by: Enoxaparin Sodium (Lovenox) 50 mg SC Q24 [facility] Last Admin: 06/11/19 08:44 Dose: 50 mg Documented by: Glucagon () 1 mg IM .X1 PRN PRN Reason: Hypoglycemia Guaifenesin (Mucinex) 1,200 mg PO BID [facility] Last Admin: 06/11/19 08:37 Dose: 1,200 mg Documented by: Ceftriaxone Sodium (Rocephin) 1 gm in 50 mls @ 100 mls/hr IV Q24 [facility] Last Infusion: 06/11/19 10:58 Dose: Infused Documented by: Sodium Chloride () 250 mls @ 15 mls/hr IV .[id number] PRN PRN Reason: Saline Flush Ipratropium Howard (Atrovent) 0.5 mg INHALATION Q6HWA.RT [facility] Last Admin: 06/11/19 12:51 Dose: 0.5 mg Documented by: Ondansetron HCl (Zofran) 4 mg IV Q8H PRN PRN PRN Reason: NAUSEA Pantoprazole Sodium (Protonix) 40 mg PO BID [facility] Last Admin: 06/11/19 08:32 Dose: 40 mg Documented by: Ranolazine (Ranexa) 500 mg PO DAILY [facility] Last Admin: 06/11/19 08:37 Dose: 500 mg Documented by: Senna/Docusate Sodium (Senokot-S, Martina-Colace) 2 tablet PO BID PRN PRN PRN Reason: Constipation Last Admin: 06/11/19 08:44 Dose: 2 tablet Documented by: Sodium Chloride () 10 - 40 ml IV UD PRN PRN Reason: SALINE FLUSH Last Admin: 06/11/19 08:35 Dose: 10 ml Documented by: Tamsulosin HCl (Flomax) 0.4 mg PO BID@0830,1730 [facility] Last Admin: 06/11/19 08:32 Dose: 0.4 mg Documented by: Medical Necessity - Tobacco Use Smoking Status: Never smoker Tobacco Use: Cigarettes Assessment/Plan All Active Problems (Last Reviewed 06/07/19 @ 20:52 by Ugo Rosenbaum MD) Acute urinary retention (Acute) Generalized weakness (Acute) Acute exacerbation of chronic obstructive pulmonary disease (Resolved) Pneumococcal pneumonia (Resolved) Sepsis (Resolved) 1. Atrial fibrillation with RVR, underlying multifocal atrial tachycardia- Cardizem drip discontinued due to hypotension. Rate improved. Continue oral Cardizem regimen 120 mg daily twice daily. Troponin negative. Patient had recent echo May 2019 which demonstrated an EF of 65%, mild mitral valve insufficiency, mild tricuspid valve insufficiency, RVSP 84 mmHg. RVSP significantly increased from prior echo. 2. Acute Streptococcus agalactiae cystitis-continue IV Rocephin. 3. Urinary retention-urology following. Initiated on Flomax 0.4 mg twice daily. Waldrop catheter placed yesterday due to persistent retention with frequent straight cath. 4. Distended gallbladder/biliary sludge/abnormal HIDA scan-patient denies further abdominal pain. Feel abdominal pain was related to urinary retention as she was straight cathed for over a liter in ER. If patient has further symptoms, will consult general surgery. However, appears to be resolved currently. Recommend outpatient follow up. 5. Constipation-Abdominal CT on admission showed nonspecific ileus with diffuse fecal retention in the colon. Abdominal x-ray showed moderate amount of fecal material in the right hemicolon. Patient had bowel movement following mag citrate x1 and Dulcolax suppository. Complains of abdominal distention again today and KUB 6. Dysphagia-speech therapy following. Continue with dietary modifications per speech therapy recommendations. Patient underwent upper GI series which showed small sliding hiatal hernia with gastroesophageal reflux. Initiated on PPI. Patient and family do not want to follow speech therapy recommendations regarding thickened liquids. Counseled on potential repercussions and risk for aspiration. 7. Chronic COPD-no acute exacerbation. As needed albuterol aerosol. 8. Hypertension-stable, continue Cardizem regimen. 9. Hyperlipidemia-continue statin regimen. 10. Stage I Pressure ulcer of coccyx and sacral area- Q2 turns, calmoseptine ordered. 11. Debility- PT/OT. 12. Severe protein calorie malnutrition-nutrition consult. 13. Chronic kidney disease stage III- at baseline. DVT prophylaxis-Lovenox subcu Discharge planning: SNF when medically stable. This patient was seen by MARCELLUS Gibbs under the supervision of Dr. Geller.
[2019-06-11] MEDS: Bisacodyl 10 MG Suppository RECTAL (14:38)
[2019-06-11] MEDS: Magnesium Citrate 300 ML 150 ML PO (15:09)
[2019-06-11] MEDS: Cefadroxil 500 MG CAPSULE PO (22:43)
[2019-06-11] MEDS: Atorvastatin Calcium 20 MG Tablet PO (22:43)
[2019-06-11] MEDS: Ondansetron 4 MG/2 ML Vial IV (22:43)
[2019-06-12] VITALS (19 sets, daily range): BP systolic 85–138; BP diastolic 41–64; PULSE 77–142; RESP 16–20; TEMP 36–36.9; O2SAT 91–100
[2019-06-12 06:43] LABS: Anion Gap 6 (5-15); BUN 21 mg/dL (7-18); BUN/Creat Ratio 14.2 RATIO (10-20); Calcium,Total 8.9 mg/dL (8.5-10.1); Chloride 104 mmol/L (98-107); Creatinine, Serum 1.48 mg/dL (0.55-1.02); EST Glomerular Filtration Rate 36 mL/min (>60); Est Glom Filt Rate - Afr Amer 44 mL/min (>60); Estimated Creatinine Clearance 22.82 ml/min; Glucose 88 mg/dL (74-106); Potassium 4.1 mmol/L (3.5-5.1); Sodium Level 142 mmol/L (136-145)
[2019-06-12] MEDS: Budesonide Respules 0.5 MG/2 ML AMPUL.NEB. INHALATION (07:14)
[2019-06-12] MEDS: Ipratropium 0.5 MG/2.5 ML SOLUTION INHALATION ×2 (07:14→13:17)
[2019-06-12] MEDS: Enoxaparin 60 MG/0.6 ML Syringe 50 MG SC (09:04)
[2019-06-12] MEDS: ROFLUMILAST 500 MCG TABLET PO (09:06)
[2019-06-12] MEDS: guaiFENesin 1,200 MG Tablet 1200 MG PO ×2 (09:06→22:00)
[2019-06-12] MEDS: Tamsulosin HCl 0.4 MG Capsule PO ×2 (09:07→18:34)
[2019-06-12] MEDS: Pantoprazole Sodium 40 MG Tablet PO ×2 (09:07→22:01)
[2019-06-12] MEDS: Ranolazine 500 MG Tablet PO (09:07)
[2019-06-12] MEDS: Calcium Carbonate 500 MG Tablet 1000 MG PO (09:07)
[2019-06-12] MEDS: dilTIAZem CD 120 MG Capsule PO ×2 (09:07→21:59)
[2019-06-12] MEDS: Cefadroxil 500 MG CAPSULE PO ×2 (09:08→21:59)
--- NOTE | 2019-06-12 11:34 | CASEMGMT ---
EMMETT called Hollie at [facility] and let her know patient is not ready today. EMMETT faxed updates to [facility]. Tala ACEVEDO MSW
--- NOTE | 2019-06-12 11:48 | CASEMGMT ---
NOAM Murry spoke with patient and her daughter about Palliative Care. They agreed to talk with Palliative Care. EMMETT met with patient and her daughter and explained Palliative Care. They agreed to a referral. Patient's daughter Diana asked to be the salesperson handbags to set up appt. SW faxed referral and called Palliative Care leaving a message with referral. Tala ACEVEDO MSW
--- NOTE | 2019-06-12 11:59 | PN_ITS ---
<Stacey Anthony - Last Filed: 06/12/19 12:09> Subjective: Patient seen and examined. Continues to complain of abdominal distention although improved. Did have a bowel movements overnight. Denies other current complaints. Patient and daughter agreeable to palliative care consult. - Physical Exam Vitals/I&O's: Vital Signs Temp Pulse Resp BP Pulse Ox 97.2 F L 95 18 106/60 91 06/12/19 11:35 06/12/19 11:35 06/12/19 11:35 06/12/19 11:35 06/12/19 11:35 Oxygen Flow Rate (L/min) 2 Oxygen Delivery Method Nasal Cannula Weight: 100 lb 1.438 oz Body Mass Index (BMI) 17.6 Intake and Output for Last 24 Hours 06/10/19 06/11/19 06/12/19 23:59 23:59 23:59 Intake Total 1526.01 / 1526.01 1885 / 1885 50 / 50 Output Total 550 / 550 275 / 275 100 / 100 Balance 976.01 / 976.01 1610 / 1610 -50 / -50 General: Alert, Oriented x3, Cooperative, - - Appears fatigued HEENT: Atraumatic, PERRLA, EOMI, Normocephalic Oral: Dry Mucosa Neck: Supple, No JVD, Negative Carotid Bruits Lungs: Clear to auscultation, Normal air movement Cardiovascular: Regular rate, Regular Rhythm, Normal S1, Normal S2, No murmurs, - - Paroxysmal multifocal atrial tachycardia Abdomen: Bowel Sounds Present, Soft, Non Tender, Distended Extremities: No clubbing, No edema, Capillary Refill Less than 3 Seconds, - - Cyanotic appearance distal fingers and toes. Skin: No breakdown Musculoskeletal: No Tenderness to Palpation of Joints or Extremities, Cachexia, Muscle Wasting Neurological: Cranial nerves II-XII grossly intact, Neuro grossly intact Psych/Mental Status: Flat Affect Microbiology Past 72 Hours 06/07/19 18:15 Urine, Catheterized Urine Culture - Final Streptococcus agalactiae (B) Laboratory Results 06/12/19 06:00: Sodium 142, Potassium 4.1, Chloride 104, Carbon Dioxide 32.0, Anion Gap 6, BUN 21 H, Creatinine 1.48 H, Estim Creat Clear Calc 22.82, Est GFR (MDRD) Af Amer 44 L, Est GFR (MDRD) Non-Af 36 L, BUN/Creatinine Ratio 14.2, Glucose 88, Calcium 8.9 Current Medications Acetaminophen (Tylenol) 650 mg PO Q6H PRN PRN PRN Reason: Pain Score 1-3/Temp > 100.7 F Last Admin: 06/10/19 14:58 Dose: 650 mg Documented by: Albuterol Sulfate (Ventolin Aerosols) 2.5 mg INHALATION Q2H PRN PRN PRN Reason: sob/wheezing Last Admin: 06/08/19 04:44 Dose: 2.5 mg Documented by: Alprazolam (Xanax) 0.25 mg PO DAILY PRN PRN PRN Reason: ANXIETY Last Admin: 06/11/19 10:31 Dose: 0.25 mg Documented by: Atorvastatin Calcium (Lipitor) 20 mg PO QHS [facility] Last Admin: 06/11/19 22:43 Dose: 20 mg Documented by: Budesonide (Pulmicort Aerosol) 0.5 mg INHALATION Q12H.RT [facility] Last Admin: 06/12/19 07:14 Dose: 0.5 mg Documented by: Calamine/Phenol (Calmoseptine Ointment) 1 applic TOPICAL TID [facility]; Protocol Last Admin: 06/11/19 22:44 Dose: Not Given Documented by: Calcium Carbonate (Tums) 1,000 mg PO DAILYCM [facility] Last Admin: 06/12/19 09:07 Dose: 1,000 mg Documented by: Cefadroxil (Duricef) 500 mg PO BID [facility] Stop: 06/13/19 22:01 Last Admin: 06/12/19 09:08 Dose: 500 mg Documented by: Cholecalciferol (Vitamin D) 1,000 unit PO DAILY [facility] Last Admin: 06/12/19 09:09 Dose: 1,000 unit Documented by: Dextrose (D50w Syringe) 0 gm IV X1 PRN; Protocol PRN Reason: Hypoglycemia Diltiazem HCl (Cardizem Cd) 120 mg PO BID [facility] Last Admin: 06/12/19 09:07 Dose: 120 mg Documented by: Enoxaparin Sodium (Lovenox) 50 mg SC Q24 [facility] Last Admin: 06/12/19 09:04 Dose: 50 mg Documented by: Glucagon () 1 mg IM .X1 PRN PRN Reason: Hypoglycemia Guaifenesin (Mucinex) 1,200 mg PO BID [facility] Last Admin: 06/12/19 09:06 Dose: 1,200 mg Documented by: Sodium Chloride () 250 mls @ 15 mls/hr IV .[id number] PRN PRN Reason: Saline Flush Ipratropium [place] (Atrovent) 0.5 mg INHALATION Q6HWA.RT [facility] Last Admin: 06/12/19 07:14 Dose: 0.5 mg Documented by: Ondansetron HCl (Zofran) 4 mg IV Q8H PRN PRN PRN Reason: NAUSEA Last Admin: 06/11/19 22:43 Dose: 4 mg Documented by: Pantoprazole Sodium (Protonix) 40 mg PO BID [facility] Last Admin: 06/12/19 09:07 Dose: 40 mg Documented by: Ranolazine (Ranexa) 500 mg PO DAILY [facility] Last Admin: 06/12/19 09:07 Dose: 500 mg Documented by: Senna/Docusate Sodium (Senokot-S, Martina-Colace) 2 tablet PO BID PRN PRN PRN Reason: Constipation Last Admin: 06/11/19 08:44 Dose: 2 tablet Documented by: Sodium Chloride () 10 - 40 ml IV UD PRN PRN Reason: SALINE FLUSH Last Admin: 06/11/19 08:35 Dose: 10 ml Documented by: Tamsulosin HCl (Flomax) 0.4 mg PO BID@0830,1730 [facility] Last Admin: 06/12/19 09:07 Dose: 0.4 mg Documented by: Medical Necessity - Tobacco Use Smoking Status: Never smoker Tobacco Use: Cigarettes Assessment/Plan 1. Atrial fibrillation with RVR, underlying multifocal atrial tachycardia- Cardizem drip discontinued due to hypotension. Rate improved. Continue oral Cardizem regimen 120 mg daily twice daily. Troponin negative. Patient had recent echo May 2019 which demonstrated an EF of 65%, mild mitral valve insufficiency, mild tricuspid valve insufficiency, RVSP 84 mmHg. RVSP significantly increased from prior echo. 2. Acute Streptococcus agalactiae cystitis-DC IV Rocephin, transition to oral Duricef for a total of 7 days of antibiotic therapy. 3. Urinary retention-urology following. Initiated on Flomax 0.4 mg twice daily. Waldrop catheter placed due to persistent retention with frequent straight cath. 4. Distended gallbladder/biliary sludge/abnormal HIDA scan-no current symptoms of gallbladder dysfunction. If patient has further symptoms, will consult general surgery. Recommend outpatient follow up. 5. Constipation-Abdominal CT on admission showed nonspecific ileus with diffuse fecal retention in the colon. Abdominal x-ray showed moderate amount of fecal material in the right hemicolon. Patient had bowel movement following mag citrate x1 and Dulcolax suppository. Repeat KUB 06/11/2019 showed moderate amount of stool in the colon. Given additional bowel regimen. Continue to monitor. 6. Dysphagia-speech therapy following. Continue with dietary modifications per speech therapy recommendations. Patient underwent upper GI series which showed small sliding hiatal hernia with gastroesophageal reflux. Initiated on PPI. Patient and family do not want to follow speech therapy recommendations regarding thickened liquids. Counseled on potential repercussions and risk for aspiration. 7. Chronic COPD-no acute exacerbation. As needed albuterol aerosol. 8. Hypertension-stable, continue Cardizem regimen. 9. Hyperlipidemia-continue statin regimen. 10. Stage I Pressure ulcer of coccyx and sacral area- Q2 turns, calmoseptine ordered. 11. Debility- PT/OT. 12. Severe protein calorie malnutrition-nutrition consult. 13. Chronic kidney disease stage III- at baseline. DVT prophylaxis-Lovenox subcu Discharge planning: SNF when medically stable. Palliative care consult. This patient was seen by MARCELLUS Gibbs under the supervision of Dr. Guajardo. <Kellen Guajardo - Last Filed: 06/12/19 13:44> - Physical Exam Vitals/I&O's: Vital Signs Temp Pulse Resp BP Pulse Ox 97.2 F L 124 H 18 106/60 91 06/12/19 11:35 06/12/19 12:00 06/12/19 11:35 06/12/19 11:35 06/12/19 11:35 Oxygen Flow Rate (L/min) 2 Oxygen Delivery Method Nasal Cannula Weight: 100 lb 1.438 oz Body Mass Index (BMI) 17.6 Intake and Output for Last 24 Hours 06/10/19 06/11/19 06/12/19 23:59 23:59 23:59 Intake Total 1526.01 / 1526.01 1885 / 1885 50 / 50 Output Total 550 / 550 275 / 275 100 / 100 Balance 976.01 / 976.01 1610 / 1610 -50 / -50 Microbiology Past 72 Hours 06/07/19 18:15 Urine, Catheterized Urine Culture - Final Streptococcus agalactiae (B) Laboratory Results 06/12/19 06:00: Sodium 142, Potassium 4.1, Chloride 104, Carbon Dioxide 32.0, Anion Gap 6, BUN 21 H, Creatinine 1.48 H, Estim Creat Clear Calc 22.82, Est GFR (MDRD) Af Amer 44 L, Est GFR (MDRD) Non-Af 36 L, BUN/Creatinine Ratio 14.2, Glucose 88, Calcium 8.9 Current Medications Acetaminophen (Tylenol) 650 mg PO Q6H PRN PRN PRN Reason: Pain Score 1-3/Temp > 100.7 F Last Admin: 06/10/19 14:58 Dose: 650 mg Documented by: Albuterol Sulfate (Ventolin Aerosols) 2.5 mg INHALATION Q2H PRN PRN PRN Reason: sob/wheezing Last Admin: 06/08/19 04:44 Dose: 2.5 mg Documented by: Alprazolam (Xanax) 0.25 mg PO DAILY PRN PRN PRN Reason: ANXIETY Last Admin: 06/11/19 10:31 Dose: 0.25 mg Documented by: Atorvastatin Calcium (Lipitor) 20 mg PO QHS [facility] Last Admin: 06/11/19 22:43 Dose: 20 mg Documented by: Budesonide (Pulmicort Aerosol) 0.5 mg INHALATION Q12H.RT [facility] Last Admin: 06/12/19 07:14 Dose: 0.5 mg Documented by: Calamine/Phenol (Calmoseptine Ointment) 1 applic TOPICAL TID [facility]; Protocol Last Admin: 06/11/19 22:44 Dose: Not Given Documented by: Calcium Carbonate (Tums) 1,000 mg PO DAILYCM [facility] Last Admin: 06/12/19 09:07 Dose: 1,000 mg Documented by: Cefadroxil (Duricef) 500 mg PO BID [facility] Stop: 06/13/19 22:01 Last Admin: 06/12/19 09:08 Dose: 500 mg Documented by: Cholecalciferol (Vitamin D) 1,000 unit PO DAILY [facility] Last Admin: 06/12/19 09:09 Dose: 1,000 unit Documented by: Dextrose (D50w Syringe) 0 gm IV X1 PRN; Protocol PRN Reason: Hypoglycemia Diltiazem HCl (Cardizem Cd) 120 mg PO BID [facility] Last Admin: 06/12/19 09:07 Dose: 120 mg Documented by: Enoxaparin Sodium (Lovenox) 50 mg SC Q24 [facility] Last Admin: 06/12/19 09:04 Dose: 50 mg Documented by: Glucagon () 1 mg IM .X1 PRN PRN Reason: Hypoglycemia Guaifenesin (Mucinex) 1,200 mg PO BID [facility] Last Admin: 06/12/19 09:06 Dose: 1,200 mg Documented by: Sodium Chloride () 250 mls @ 15 mls/hr IV .[id number] PRN PRN Reason: Saline Flush Ipratropium [place] (Atrovent) 0.5 mg INHALATION Q6HWA.RT [facility] Last Admin: 06/12/19 13:17 Dose: 0.5 mg Documented by: Ondansetron HCl (Zofran) 4 mg IV Q8H PRN PRN PRN Reason: NAUSEA Last Admin: 06/11/19 22:43 Dose: 4 mg Documented by: Pantoprazole Sodium (Protonix) 40 mg PO BID [facility] Last Admin: 06/12/19 09:07 Dose: 40 mg Documented by: Ranolazine (Ranexa) 500 mg PO DAILY [facility] Last Admin: 06/12/19 09:07 Dose: 500 mg Documented by: Senna/Docusate Sodium (Senokot-S, Martina-Colace) 2 tablet PO BID PRN PRN PRN Reason: Constipation Last Admin: 06/11/19 08:44 Dose: 2 tablet Documented by: Sodium Chloride () 10 - 40 ml IV UD PRN PRN Reason: SALINE FLUSH Last Admin: 06/11/19 08:35 Dose: 10 ml Documented by: Tamsulosin HCl (Flomax) 0.4 mg PO BID@0830,1730 [facility] Last Admin: 06/12/19 09:07 Dose: 0.4 mg Documented by: Assessment/Plan Hospitalist note: I am seeing this patient in conjunction with Stacey Anthony. I independently seen and examined the patient. Progress note above, laboratory data and imaging studies reviewed and I concur with the above work-up and treatment plan. Patient complained of abdominal pain and distention but improved. Patient's daughter mentioned that she had bowel movement overnight. She has been afebrile, tachycardic, blood pressure stable, pulse ox is 91% on 2 L. - Physical Exam General: Alert, Oriented x3, Cooperative, minimally short of breath, chronically ill looking. HEENT: Atraumatic, PERRLA, EOMI. Neck: Supple, No JVD, Negative Carotid Bruits, Trachea Midline, Thyroid Normal. Lungs: Decreased breath sounds bilateral, otherwise clear no rhonchi, No wheeze, No rales. Cardiovascular: Regular rate, Regular Rhythm, Normal S1, Normal S2, PMI Normal. Abdomen: Bowel Sounds Present, Soft, Non Tender, Non-Distended, No Hepato- splenomegaly. Extremities: No clubbing, No edema. Sole of the foot looking cyanotic, chronic. Skin: No rashes, No breakdown Neurological: Cranial nerves are intact, neuro grossly intact Assessment and plan: #1 A. fib with RVR: Today, she is in sinus rhythm. IV Cardizem drip discontinued and she has been on oral Cardizem. Troponin is negative. 2D echocardiogram reviewed as above. I do not think this patient is a candidate for long-term anticoagulation. Serum potassium and magnesium were normal. Troponin was negative. Plan to continue same treatment. Patient's daughter agreed to have palliative care evaluate the patient. #2 Streptococcus agalactiae acute cystitis: She is on oral Duricef, she was on IV Rocephin which was discontinued. Urine culture reviewed. #3 urinary retention: On Waldrop catheter, started on Flomax. #4 distended gallbladder/biliary sludge/abnormal HIDA scan: Patient denied any right upper quadrant abdominal pain. LFT was normal. Lipase was normal. #5 constipation: CT scan abdomen reviewed, she has fecal retention in the colon. Patient did have a bowel movement overnight. Repeat KUB showed moderate amount of stool in the colon. Plan to continue laxative. #6 dysphagia: Underwent upper GI series, reviewed. She is on PPI for GERD. Speech therapy is seeing the patient, diet recommendations reviewed. #7 other chronic medical problems: Stable, continue current medications as above. This note was generated with [employer] software. It may contain incorrect words, spelling, and punctuation that were not noted in checking the note before signing. Code Visit Inpatient E&M: 11119 Subs Hosp L2
--- NOTE | 2019-06-12 14:32 | CASEMGMT ---
Received a phone call from Susan with [facility] and she will be meeting with patient and family on 06-14 at . EMMETT told her SW will keep them updated so they know where to meet. She thanked EMMETT. Plan: [facility] under skilled level of care. Meeting with Palliative Care 06-14 at . Tala ACEVEDO MSW
[2019-06-12] MEDS: Atorvastatin Calcium 20 MG Tablet PO (22:00)
[2019-06-12] MEDS: Acetaminophen 325 MG Tablet 650 MG PO (22:01)
[2019-06-12] MEDS: Menthol/Lanolin/Calamine/Znox 113 GM Tube 1 APPLIC TOPICAL (22:07)
--- NOTE | 2019-06-12 22:47 | RAD_ITS ---
STUDY: X-RAY - ABDOMEN/PELVIS REASON FOR EXAM: Female, 78 years old. Worsening abdominal pain. TECHNIQUE: Single AP view of the abdomen / pelvis. COMPARISON: 06/11/2019. FINDINGS: Mild bilateral basilar atelectasis seen. There are several loops of small bowel distended up to 3.6 cm with persistent contrast within the distal ileum. These findings may represent distal obstruction or diffuse ileus. There is no demonstrated free abdominal air. The visualized liver, spleen and kidneys are grossly normal in size and morphology. Normal soft tissue structures. There are diffuse degenerative changes of the visualized lumbar spine. RAD/Abdomen Single View (Portable) IMPRESSION: Distal small bowel or colonic obstruction versus a diffuse bowel ileus. Electronically Signed: Emily Mar MD at 0:42 EST , Service support ,
[2019-06-12] MEDS: Ondansetron 4 MG/2 ML Vial IV (23:39)
[2019-06-12] MEDS: 0.9% Saline Lock 10 ML Syringe IV (23:39)
[2019-06-13] VITALS (17 sets, daily range): BP systolic 82–114; BP diastolic 41–59; PULSE 87–121; RESP 16–20; TEMP 36.3–36.8; O2SAT 94–100
--- NOTE | 2019-06-13 01:33 | RAD_ITS ---
STUDY: X-RAY - ABDOMEN/PELVIS REASON FOR EXAM: Female, 78 years old. Nasogastric tube placement. TECHNIQUE: Single AP view of the abdomen / pelvis. COMPARISON: None. FINDINGS: Normal visualized lung bases. There is a nasogastric tube in place with the tip projecting over the gastric fundus and sidehole at the EG junction. There is mild distention of the small bowel loops which may indicate distal obstruction versus ileus. There is no demonstrated free abdominal air. The visualized liver, spleen and kidneys are grossly normal in size and morphology. Normal soft tissue structures. There are diffuse degenerative changes of the visualized lumbar spine. RAD/Abdomen Single View IMPRESSION: Nasogastric tube is described above. Recommend advancing the tube approximately 9 cm. Electronically Signed: Emily Mar MD at 3:05 EST , Service support ,
[2019-06-13] MEDS: Oxymetazoline 0.05% 1 SPRAY SPRAY.BTL 2 SPRAY NASAL (02:28)
[2019-06-13] MEDS: Lidocaine 2% Jelly 1 APPLIC Tube TOPICAL (02:44)
--- NOTE | 2019-06-13 03:43 | RAD_ITS ---
STUDY: X-RAY - ABDOMEN/PELVIS REASON FOR EXAM: Female, 78 years old. Nasogastric tube placement. TECHNIQUE: AP supine abdomen. COMPARISON: June 13, 2019 at 2:44 AM. FINDINGS: Normal visualized lung bases. Nasogastric tube tip overlying left upper quadrant in the region of the proximal gastric fundus. Mildly dilated loops of small bowel unchanged. There is no demonstrated free abdominal air. The visualized liver, spleen and kidneys are grossly normal in size and morphology. Normal soft tissue structures. Normal visualized osseous structures. RAD/Abdomen Single View IMPRESSION: Nasogastric tube tip in the gastric fundus. Mid small bowel obstruction versus adynamic ileus not significantly changed. Electronically Signed: Gary Borges MD at 4:18 EST , Service support ,
[2019-06-13] MEDS: Budesonide Respules 0.5 MG/2 ML AMPUL.NEB. INHALATION ×2 (07:25→19:18)
[2019-06-13] MEDS: Ipratropium 0.5 MG/2.5 ML SOLUTION INHALATION ×3 (07:25→19:18)
[2019-06-13] MEDS: 0.9% Saline Lock 10 ML Syringe IV ×2 (10:39→14:20)
[2019-06-13] MEDS: 0.9% Normal Saline 1,000 ML 100 ML IV ×2 (10:39→21:01)
[2019-06-13] MEDS: Enoxaparin 60 MG/0.6 ML Syringe 50 MG SC (10:43)
[2019-06-13] MEDS: ROFLUMILAST 500 MCG TABLET GT (10:47)
[2019-06-13] MEDS: Cefadroxil 500 MG CAPSULE GT ×2 (10:47→21:01)
[2019-06-13] MEDS: Lansoprazole 15 MG Capsule.DR 30 MG NG (10:58)
[2019-06-13] MEDS: guaiFENesin 10 ML UDC (200MG/10ML) 60 ML NG ×2 (11:00→21:00)
--- NOTE | 2019-06-13 12:09 | CT_ITS ---
STUDY: CT ABDOMEN AND PELVIS WITHOUT CONTRAST REASON FOR EXAM: Female, 78 years old. Bowel obstruction versus ileus. RADIATION DOSAGE (If Supplied By Facility): CTDIvol = ( 6.38 ) mGy, DLP = ( 382.39 ) mGycm TECHNIQUE: Transaxial images were obtained from the dome of the diaphragm to the symphysis pubis without oral contrast, and without intravenous contrast. Sagittal and coronal images were reconstructed. Individualized dose optimization techniques were used for this CT. COMPARISON: Comparison is made with prior examination dated June 07, 2019. FINDINGS: Small bilateral pleural effusions worse on the right side with bibasilar atelectasis and/or infiltrates worse on the right side. The visualized portions of the heart are within normal limits. Stable 1.5 cm cyst in the right lobe. Once again, the gallbladder is distended. Sludge is seen within the dependent portion of the gallbladder. Normal spleen. Normal pancreas. Normal bilateral adrenal glands. Normal right kidney. Stable nonobstructive calculus in the lower pole of the left kidney An enteric tube is seen within the esophagus entering the body of the stomach. Since prior study, there has been progressive distention of the small bowel loops with fluid and residual oral contrast down to the level of the ileum. This may represent an ileus pattern. Moderate amount of fecal material is seen in the colon. The colon is not distended. Normal colon. The appendix is visualized and appears normal. There is diffuse atherosclerotic calcification of the abdominal aorta and its major visceral branches., without a demonstrated aneurysm. Normal inferior vena cava. Normal retroperitoneum. A Waldrop catheter is seen within the empty urinary bladder. There is absence of the uterus consistent with a prior hysterectomy. Normal abdominal wall. There are diffuse degenerative changes of the visualized lumbar spine. Dextroscoliosis. Grade 2 anterior listhesis of L5 on S1 with spondylolysis of the pars intraarticularis of the L5 vertebrae. CT/Abdomen/Pel W ORAL Cont Only IMPRESSION: Further fluid-filled distended small bowel loops down to the ileum. This is suggestive of ileus. Distended gallbladder. Stable pleural effusions and atelectasis at the lung bases worse on the right side. Electronically Signed: Lee Maciel, at 15:24 EST , Service support ,
--- NOTE | 2019-06-13 13:25 | CASEMGMT ---
EMMETT notified Hollie at [facility] that patient is not ready today. Tala ACEVEDO MSW
--- NOTE | 2019-06-13 13:34 | PN_ITS ---
<Stacey Anthony - Last Filed: 06/13/19 13:44> Subjective: Patient seen and examined. Had worsening abdominal pain overnight. KUB completed which showed small bowel obstruction versus diffuse bowel ileus. NG in place. Patient reports improvement in abdominal pain. Continues to feel bloated. No bowel movement overnight or this morning. Denies flatus. - Physical Exam Vitals/I&O's: Vital Signs Temp Pulse Resp BP Pulse Ox 97.8 F 116 H 20 H 99/48 L 99 06/13/19 10:23 06/13/19 13:14 06/13/19 13:14 06/13/19 10:23 06/13/19 10:23 Oxygen Flow Rate (L/min) 2 Oxygen Delivery Method Nasal Cannula Weight: 100 lb 8.493 oz Body Mass Index (BMI) 17.6 Intake and Output for Last 24 Hours 06/11/19 06/12/19 06/13/19 23:59 23:59 23:59 Intake Total 1885 / 1885 300 / 300 180 / 180 Output Total 275 / 275 425 / 425 825 / 825 Balance 1610 / 1610 -125 / -125 -645 / -645 General: Alert, Oriented x3, Cooperative HEENT: Atraumatic, PERRLA, EOMI, Normocephalic Oral: Dry Mucosa Neck: Supple, No JVD, Negative Carotid Bruits Lungs: Clear to auscultation, Normal air movement Cardiovascular: Normal S1, Normal S2, No murmurs, Tachycardic, - - Paroxysmal multifocal atrial tachycardia Abdomen: Hypoactive Bowel Sounds, Distended, Tender Extremities: No clubbing, No cyanosis, No edema, Capillary Refill Less than 3 Seconds Skin: No rashes, No breakdown, - - Cyanotic appearance distal fingers and toes. Musculoskeletal: No Tenderness to Palpation of Joints or Extremities Neurological: Cranial nerves II-XII grossly intact, Neuro grossly intact Psych/Mental Status: Flat Affect Current Medications Acetaminophen (Tylenol Liquid) 650 mg GT Q6H PRN PRN PRN Reason: Pain Score 1-3/Temp > 100.7 F Albuterol Sulfate (Ventolin Aerosols) 2.5 mg INHALATION Q2H PRN PRN PRN Reason: sob/wheezing Last Admin: 06/08/19 04:44 Dose: 2.5 mg Documented by: Alprazolam (Xanax) 0.25 mg GT DAILY PRN PRN PRN Reason: ANXIETY Atorvastatin Calcium (Lipitor) 20 mg GT QHS KAVIN Budesonide (Pulmicort Aerosol) 0.5 mg INHALATION Q12H.RT [facility] Last Admin: 06/13/19 07:25 Dose: 0.5 mg Documented by: Calamine/Phenol (Calmoseptine Ointment) 1 applic TOPICAL TID KAVIN; Protocol Last Admin: 06/13/19 06:01 Dose: Not Given Documented by: Calcium Carbonate (Tums) 1,000 mg GT DAILYCM KAVIN Cefadroxil (Duricef) 500 mg GT BID [facility] Stop: 06/13/19 22:01 Last Admin: 06/13/19 10:47 Dose: 500 mg Documented by: Cholecalciferol (Vitamin D) 1,000 unit GT DAILY [facility] Last Admin: 06/13/19 10:48 Dose: 1,000 unit Documented by: Dextrose (D50w Syringe) 0 gm IV X1 PRN; Protocol PRN Reason: Hypoglycemia Diltiazem HCl (Cardizem) 60 mg GT Q6 KAVIN Enoxaparin Sodium (Lovenox) 50 mg SC Q24 [facility] Last Admin: 06/13/19 10:43 Dose: 50 mg Documented by: Glucagon () 1 mg IM .X1 PRN PRN Reason: Hypoglycemia Guaifenesin (Robitussin) 60 ml NG BID [facility] Last Admin: 06/13/19 11:00 Dose: 60 ml Documented by: Sodium Chloride () 250 mls @ 15 mls/hr IV .[id number] PRN PRN Reason: Saline Flush Sodium Chloride () 1,000 mls @ 100 mls/hr IV .Q10H [facility] Last Admin: 06/13/19 10:39 Dose: 100 mls/hr Documented by: Ipratropium [place] (Atrovent) 0.5 mg INHALATION Q6HWA.RT [facility] Last Admin: 06/13/19 13:14 Dose: 0.5 mg Documented by: Isosorbide Dinitrate (Isordil) 20 mg GT TID KAVIN Lansoprazole (Lansoprazole) 30 mg NG DAILY [facility] Last Admin: 06/13/19 10:58 Dose: 30 mg Documented by: Ondansetron HCl (Zofran) 4 mg IV Q8H PRN PRN PRN Reason: NAUSEA Last Admin: 06/12/19 23:39 Dose: 4 mg Documented by: Senna/Docusate Sodium (Senokot-S, Martina-Colace) 2 tablet GT BID PRN PRN PRN Reason: Constipation Sodium Chloride () 10 - 40 ml IV UD PRN PRN Reason: SALINE FLUSH Last Admin: 06/13/19 10:39 Dose: 10 ml Documented by: Medical Necessity - Tobacco Use Smoking Status: Never smoker Tobacco Use: Cigarettes Assessment/Plan 1. Small bowel obstruction versus diffuse ileus-Abdominal CT on admission showed nonspecific ileus with diffuse fecal retention in the colon. Patient has had multiple KUBs which previously showed no obstruction, moderate stool in colon. Patient with increased abdominal pain overnight. KUB completed and showed distal small bowel or colonic obstruction versus diffuse bowel ileus. NG placed. Consult placed to general surgery. N.p.o. IV fluids. Encourage ambulation. Continue bowel regimen. 2. Atrial fibrillation with RVR, underlying multifocal atrial tachycardia- Cardizem drip discontinued due to hypotension. Rate improved. Continue oral Cardizem regimen 60 mg every 6 hours. Troponin negative. Patient had recent echo May 2019 which demonstrated an EF of 65%, mild mitral valve insu fficiency, mild tricuspid valve insufficiency, RVSP 84 mmHg. RVSP significantly increased from prior echo. 3. Urinary retention-urology following. Initiated on Flomax 0.4 mg twice daily. Waldrop catheter placed due to persistent retention with frequent straight cath. 4. Distended gallbladder/biliary sludge/abnormal HIDA scan-no current symptoms of gallbladder dysfunction. If patient has further symptoms, will consult general surgery. Recommend outpatient follow up. 5. Acute Streptococcus agalactiae cystitis-DC IV Rocephin, transition to oral Duricef for a total of 7 days of antibiotic therapy. 6. Dysphagia-speech therapy following. Continue with dietary modifications per speech therapy recommendations. Patient underwent upper GI series which showed small sliding hiatal hernia with gastroesophageal reflux. Initiated on PPI. Patient and family do not want to follow speech therapy recommendations regarding thickened liquids. Counseled on potential repercussions and risk for aspiration. 7. Chronic COPD-no acute exacerbation. As needed albuterol aerosol. 8. Hypertension-stable, continue Cardizem regimen. 9. Hyperlipidemia-continue statin regimen. 10. Stage I Pressure ulcer of coccyx and sacral area- Q2 turns, calmoseptine ordered. 11. Debility- PT/OT. 12. Severe protein calorie malnutrition-nutrition consult. 13. Chronic kidney disease stage III- at baseline. DVT prophylaxis-Lovenox subcu Discharge planning: SNF when medically stable. Palliative care consult. This patient was seen by MARCELLUS Gibbs under the supervision of Dr. Guajardo. <Kellen Guajardo E - Last Filed: 06/13/19 13:51> - Physical Exam Vitals/I&O's: Vital Signs Temp Pulse Resp BP Pulse Ox 98.3 F 111 H 18 82/41 L 96 06/13/19 13:39 06/13/19 13:39 06/13/19 13:39 06/13/19 13:39 06/13/19 13:39 Oxygen Flow Rate (L/min) 2 Oxygen Delivery Method Nasal Cannula Weight: 100 lb 8.493 oz Body Mass Index (BMI) 17.6 Intake and Output for Last 24 Hours 06/11/19 06/12/19 06/13/19 23:59 23:59 23:59 Intake Total 1885 / 1885 300 / 300 180 / 180 Output Total 275 / 275 425 / 425 825 / 825 Balance 1610 / 1610 -125 / -125 -645 / -645 Current Medications Acetaminophen (Tylenol Liquid) 650 mg GT Q6H PRN PRN PRN Reason: Pain Score 1-3/Temp > 100.7 F Albuterol Sulfate (Ventolin Aerosols) 2.5 mg INHALATION Q2H PRN PRN PRN Reason: sob/wheezing Last Admin: 06/08/19 04:44 Dose: 2.5 mg Documented by: Alprazolam (Xanax) 0.25 mg GT DAILY PRN PRN PRN Reason: ANXIETY Atorvastatin Calcium (Lipitor) 20 mg GT QHS KAVIN Budesonide (Pulmicort Aerosol) 0.5 mg INHALATION Q12H.RT [facility] Last Admin: 06/13/19 07:25 Dose: 0.5 mg Documented by: Calamine/Phenol (Calmoseptine Ointment) 1 applic TOPICAL TID KAVIN; Protocol Last Admin: 06/13/19 06:01 Dose: Not Given Documented by: Calcium Carbonate (Tums) 1,000 mg GT DAILYCM KAVIN Cefadroxil (Duricef) 500 mg GT BID [facility] Stop: 06/13/19 22:01 Last Admin: 06/13/19 10:47 Dose: 500 mg Documented by: Cholecalciferol (Vitamin D) 1,000 unit GT DAILY [facility] Last Admin: 06/13/19 10:48 Dose: 1,000 unit Documented by: Dextrose (D50w Syringe) 0 gm IV X1 PRN; Protocol PRN Reason: Hypoglycemia Diltiazem HCl (Cardizem) 60 mg GT Q6 KAVIN Enoxaparin Sodium (Lovenox) 50 mg SC Q24 [facility] Last Admin: 06/13/19 10:43 Dose: 50 mg Documented by: Glucagon () 1 mg IM .X1 PRN PRN Reason: Hypoglycemia Guaifenesin (Robitussin) 60 ml NG BID [facility] Last Admin: 06/13/19 11:00 Dose: 60 ml Documented by: Sodium Chloride () 250 mls @ 15 mls/hr IV .[id number] PRN PRN Reason: Saline Flush Sodium Chloride () 1,000 mls @ 100 mls/hr IV .Q10H [facility] Last Admin: 06/13/19 10:39 Dose: 100 mls/hr Documented by: Ipratropium [place] (Atrovent) 0.5 mg INHALATION Q6HWA.RT [facility] Last Admin: 06/13/19 13:14 Dose: 0.5 mg Documented by: Isosorbide Dinitrate (Isordil) 20 mg GT TID KAVIN Lansoprazole (Lansoprazole) 30 mg NG DAILY [facility] Last Admin: 06/13/19 10:58 Dose: 30 mg Documented by: Ondansetron HCl (Zofran) 4 mg IV Q8H PRN PRN PRN Reason: NAUSEA Last Admin: 06/12/19 23:39 Dose: 4 mg Documented by: Senna/Docusate Sodium (Senokot-S, Martina-Colace) 2 tablet GT BID PRN PRN PRN Reason: Constipation Sodium Chloride () 10 - 40 ml IV UD PRN PRN Reason: SALINE FLUSH Last Admin: 06/13/19 10:39 Dose: 10 ml Documented by: Assessment/Plan Hospitalist note: I am seeing this patient in conjunction with Stacey Anthony. I independently seen and examined the patient. Progress note above, laboratory data and imaging studies reviewed and I concur with the above work-up and treatment plan. Overnight, x-ray abdomen done again and revealed distal small bowel or colonic obstruction versus diffuse ileus. NG tube was inserted and on suction. This morning, patient mentioned that her abdominal pain is improving, still having abdominal distention. No bowel movements. - Physical Exam General: Alert, Oriented x3, Cooperative, minimally short of breath, chronically ill looking. HEENT: Atraumatic, PERRLA, EOMI. Neck: Supple, No JVD, Negative Carotid Bruits, Trachea Midline, Thyroid Normal. Lungs: Decreased breath sounds bilateral, otherwise clear no rhonchi, No wheeze, No rales. Cardiovascular: Regular rate, Regular Rhythm, Normal S1, Normal S2, PMI Normal, tachycardia. Abdomen: Hypoactive bowel sounds, tender, distended, no guarding or rigidity, No Hepato-splenomegaly. Extremities: No clubbing, No edema. Sole of the foot looking cyanotic, chronic. Skin: No rashes, No breakdown Neurological: Cranial nerves are intact, neuro grossly intact Assessment and plan: #1 small bowel obstruction versus bowel ileus: X-ray abdomen from last night reviewed. Patient was on NG tube suction. Started on IV fluids, n.p.o. Plan to consult general surgery, repeat CBC and BMP tomorrow morning. #2 A. fib with RVR: Rate has been around 110, blood pressure stable, she is on p.o. Cardizem. Troponin is negative. 2D echocardiogram reviewed as above. I do not think this patient is a candidate for long-term anticoagulation. Serum potassium and magnesium were normal. Troponin was negative. #3 Streptococcus agalactiae acute cystitis: She is on Duricef through the G- tube, she was on IV Rocephin which was discontinued. Urine culture reviewed. #4 urinary retention: On Waldrop catheter, started on Flomax. #5 distended gallbladder/biliary sludge/abnormal HIDA scan: Patient denied any right upper quadrant abdominal pain. LFT was normal. Lipase was normal. #7 dysphagia: Underwent upper GI series, reviewed. She is on PPI for GERD. Speech therapy is seeing the patient, she is on n.p.o. at this time. #8 other chronic medical problems: Stable, continue current medications as above. This note was generated with [employer] software. It may contain incorrect words, spelling, and punctuation that were not noted in checking the note before signing. Code Visit Inpatient E&M: 25756 Subs Hosp L2
[2019-06-13] MEDS: dilTIAZem 30 MG Tablet 60 MG GT ×3 (13:46→23:44)
[2019-06-13] MEDS: Menthol/Lanolin/Calamine/Znox 113 GM Tube 1 APPLIC TOPICAL ×2 (13:58→21:00)
--- NOTE | 2019-06-13 15:46 | NURSING ---
This RN taking over care at this time.
--- NOTE | 2019-06-13 16:29 | CON.PCM_ITS ---
Problem List (1) Ileus Status: Acute Reason for Consult Date of Consultation: 06/13/19 Reason for Consultation: Ileus History of Present Illness: The patient is a 78 year old F who was in the hospital for weakness. She was found to have urinary retention and UTI. She has been treated for this with Rocephin and was recently changed to Duricef. She reports that she vomited last night. This made her feel better. She had a bowel movement yesterday. She reports that her abdomen does not really hurt it just feels a little sore. Past Medical History Past Medical History (Chronic Problems): Chronic Problems (Last Updated 06/12/19 @ 13:35 by Kellen Guajardo MD) Carotid bruit (Chronic) History of steroid therapy (Chronic) Declining functional status (Chronic) Pulmonary hypertension (Chronic) Non-rheumatic tricuspid valve insufficiency (Chronic) Atherosclerotic heart disease of [place] coronary artery with other forms of angina pectoris (Chronic) COPD (chronic obstructive pulmonary disease) (Chronic) Hypertension (Chronic) SVT (supraventricular tachycardia) (Chronic) CKD (chronic kidney disease), stage III (Chronic) Hyperlipidemia (Chronic) Medical History: Medical History (Last Updated 06/12/19 @ 13:35 by Kellen Guajardo MD) Pulmonary hypertension (Chronic) I27.20 Non-rheumatic tricuspid valve insufficiency (Chronic) I36.1 Atherosclerotic heart disease of [place] coronary artery with other forms of angina pectoris (Chronic) I25.118 COPD (chronic obstructive pulmonary disease) (Chronic) J44.9 Hypertension (Chronic) I10 SVT (supraventricular tachycardia) (Chronic) I47.1 CKD (chronic kidney disease), stage III (Chronic) N18.3 Hyperlipidemia (Chronic) E78.5 Cryptogenic organizing pneumonia J84.116 Osteopenia M85.80 Pulmonary nodule R91.1 lymphoid inflammatory process Anxiety F41.9 Pulmonary emboli I26.99 RLS (restless legs syndrome) G25.81 Deep vein thrombosis I82.409 Allergies levofloxacin [From Levaquin] Adverse Reaction (Severe, Verified 06/07/19 16:51) Unknown sulfamethoxazole [From Bactrim] Adverse Reaction (Severe, Verified 06/07/19 16:51) Unknown trimethoprim [From Bactrim] Adverse Reaction (Severe, Verified 06/07/19 16:51) Unknown A 'MYCIN' BUT DO NOT REMEMBER Allergy (Uncoded 06/07/19 16:51) Hives Home Medications: Ambulatory Orders Medication Instructions Recorded Tiotropium Oss[place] [Spiriva 18 MCG] 1 puff INHALATION DAILY 10/02/14 Roflumilast [Daliresp] 500 mcg PO DAILY 09/29/15 Atorvastatin Calcium [Lipitor] 20 mg PO QHS 02/14/16 ALPRAZolam [Xanax] 0.25 mg PO DAILY PRN PRN 03/30/17 calcium carbonate 600 mg calcium 1,000 mg PO DAILY tab 09/19/18 (1,500 mg) tablet Fluticasone/Salmeterol [Advair 1 puff INHALATION BID 01/26/19 500-50 Diskus] Ranolazine [Ranexa] 500 mg PO DAILY 05/16/19 Albuterol Sulfate 2.5 mg IH Q6H PRN PRN 06/07/19 Albuterol Sulfate [Proair Hfa] 2 puff INHALATION Q4H PRN PRN 06/07/19 Azithromycin 250 mg PO DAILY 06/07/19 Cholecalciferol (VIT D3) [Vitamin 1,000 unit PO DAILY 06/07/19 D] Diltiazem CD [Cardizem CD] 240 mg PO DAILY 06/07/19 Furosemide 40 mg PO DAILY 06/07/19 Multivitamin with Minerals 1 tab PO DAILY 06/07/19 [Multiple Vitamin] Nystatin 5 ml PO 4X/DAY PRN PRN 06/08/19 Surgical History: Surgical History (Last Updated 06/12/19 @ 13:35 by Kellen Guajardo MD) History of appendectomy Z90.49 History of hysterectomy Z90.710 Hx of cataract surgery Z98.49 S/P bronchoscopy with biopsy Z98.890 Surgical History: appendectomy, hysterectomy Psychiatric History: Anxiety [employer]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[employer]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 Lives: With Family Smoking Status: Never smoker Tobacco Use: Cigarettes Drugs: None - *Family History Maternal Family History: Family History (Last Reviewed 06/07/19 @ 20:53 by Ugo Rosenbaum MD) Father CAD (coronary artery disease) Myocardial infarction Mother CAD (coronary artery disease) Hypertension Sister CAD (coronary artery disease) Sister Hypertension CHF (congestive heart failure) History Items: Hypertension Paternal Family History: Family History (Last Reviewed 06/07/19 @ 20:53 by Ugo Rosenbaum MD) Father CAD (coronary artery disease) Myocardial infarction Mother CAD (coronary artery disease) Hypertension Sister CAD (coronary artery disease) Sister Hypertension CHF (congestive heart failure) History Items: Heart Disease - [place] 60s. Review of Systems Constitutional: Denies: Anorexia, Fever HEENT: Denies: Difficulty Swallowing Cardiovascular: Denies: Chest Pain Gastrointestinal: Reports: Abdominal Pain, Nausea, Vomiting Genitourinary: Reports: Retention Skin: Denies: Jaundice Neurological: Reports: Balance problems Patient Problems: Active and Suspected Problems (Last Updated 06/12/19 @ 13:35 by Klelen Guajardo MD) Ileus (Acute) - Physical Exam Vitals/I&O's: Vital Signs Temp Pulse Resp BP Pulse Ox 97.9 F 104 H 18 94/53 L 94 06/13/19 15:21 06/13/19 15:21 06/13/19 15:21 06/13/19 15:21 06/13/19 15:21 Oxygen Flow Rate (L/min) 2 Oxygen Delivery Method Nasal Cannula Weight: 100 lb 8.493 oz Body Mass Index (BMI) 17.6 Intake and Output for Last 24 Hours 06/11/19 06/12/19 06/13/19 23:59 23:59 23:59 Intake Total 1885 / 1885 300 / 300 803.34 / 803.34 Output Total 275 / 275 425 / 425 975 / 975 Balance 1610 / 1610 -125 / -125 -171.66 / -171.66 General: Alert, Oriented x3, Cooperative HEENT: Atraumatic Neck: No JVD Lungs: Normal air movement Cardiovascular: Regular rate, Regular Rhythm Abdomen: Soft, Distended, Tender - Mildly tender to deep palpation. No guarding or rebound. Extremities: No clubbing Skin: No rashes Musculoskeletal: Cachexia Neurological: Cranial nerves II-XII grossly intact Psych/Mental Status: Normal Affect Clinical Impression(s) from Imaging Studies KUB X-Ray 06/12/19 22:47 IMPRESSION: Distal small bowel or colonic obstruction versus a diffuse bowel ileus. Electronically Signed: Emily Mar MD at 0:42 EST , Service support , KUB X-Ray 06/13/19 01:33 IMPRESSION: Nasogastric tube is described above. Recommend advancing the tube approximately 9 cm. Electronically Signed: Emily Mar MD at 3:05 EST , Service support , KUB X-Ray 06/13/19 03:43 IMPRESSION: Nasogastric tube tip in the gastric fundus. Mid small bowel obstruction versus adynamic ileus not significantly changed. Electronically Signed: Gary Borges MD at 4:18 EST , Service support , Abdomen CT 06/13/19 12:09 IMPRESSION: Further fluid-filled distended small bowel loops down to the ileum. This is suggestive of ileus. Distended gallbladder. Stable pleural effusions and atelectasis at the lung bases worse on the right side. Electronically Signed: Lee Maciel, at 15:24 EST , Service support , Current Medications Acetaminophen (Tylenol Liquid) 650 mg GT Q6H PRN PRN PRN Reason: Pain Score 1-3/Temp > 100.7 F Albuterol Sulfate (Ventolin Aerosols) 2.5 mg INHALATION Q2H PRN PRN PRN Reason: sob/wheezing Last Admin: 06/08/19 04:44 Dose: 2.5 mg Documented by: Alprazolam (Xanax) 0.25 mg GT DAILY PRN PRN PRN Reason: ANXIETY Atorvastatin Calcium (Lipitor) 20 mg GT QHS KAVIN Budesonide (Pulmicort Aerosol) 0.5 mg INHALATION Q12H.RT [facility] Last Admin: 06/13/19 07:25 Dose: 0.5 mg Documented by: Calamine/Phenol (Calmoseptine Ointment) 1 applic TOPICAL TID KAVIN; Protocol Last Admin: 06/13/19 13:58 Dose: 1 applicatio Documented by: Calcium Carbonate (Tums) 1,000 mg GT DAILYCM [facility]IN Cefadroxil (Duricef) 500 mg GT BID [facility] Stop: 06/13/19 22:01 Last Admin: 06/13/19 10:47 Dose: 500 mg Documented by: Cholecalciferol (Vitamin D) 1,000 unit GT DAILY [facility] Last Admin: 06/13/19 10:48 Dose: 1,000 unit Documented by: Dextrose (D50w Syringe) 0 gm IV X1 PRN; Protocol PRN Reason: Hypoglycemia Diltiazem HCl (Cardizem) 60 mg GT Q6 [facility] Last Admin: 06/13/19 13:46 Dose: 60 mg Documented by: Enoxaparin Sodium (Lovenox) 50 mg SC Q24 [facility] Last Admin: 06/13/19 10:43 Dose: 50 mg Documented by: Glucagon () 1 mg IM .X1 PRN PRN Reason: Hypoglycemia Guaifenesin (Robitussin) 60 ml NG BID [facility] Last Admin: 06/13/19 11:00 Dose: 60 ml Documented by: Sodium Chloride () 250 mls @ 15 mls/hr IV .[id number] PRN PRN Reason: Saline Flush Sodium Chloride () 1,000 mls @ 100 mls/hr IV .Q10H [facility] Last Infusion: 06/13/19 13:58 Dose: 0 mls/hr Documented by: Ipratropium [place] (Atrovent) 0.5 mg INHALATION Q6HWA.RT [facility] Last Admin: 06/13/19 13:14 Dose: 0.5 mg Documented by: Isosorbide Dinitrate (Isordil) 20 mg GT TID [facility] Last Admin: 06/13/19 13:46 Dose: Not Given Documented by: Lansoprazole (Lansoprazole) 30 mg NG DAILY [facility] Last Admin: 06/13/19 10:58 Dose: 30 mg Documented by: Ondansetron HCl (Zofran) 4 mg IV Q8H PRN PRN PRN Reason: NAUSEA Last Admin: 06/12/19 23:39 Dose: 4 mg Documented by: Senna/Docusate Sodium (Senokot-S, Martina-Colace) 2 tablet GT BID PRN PRN PRN Reason: Constipation Sodium Chloride () 10 - 40 ml IV UD PRN PRN Reason: SALINE FLUSH Last Admin: 11/12/19 14:20 Dose: 10 ml Documented by: Assessment/Plan All Active Problems (Last Updated 06/12/19 @ 13:35 by Kellen Guajardo MD) Ileus (Acute) 78-year-old female with ileus 1. The patient had a repeat CT scan today which showed dilated small bowel all the way down to the terminal ileum indicating ileus. The contrast did reach the right colon. There is no sign of actual obstruction. Her NG is bilious. I recommend continuing the NG tube until she starts passing flatus and then once the tube starts to clear and the output decreases it will be removed and she wi ll be started on a diet. Unsure as the underlying cause of the ileus. The patient had infiltrates and effusions on the CT scan and bilateral lungs. She is also having a UTI. 2. The patient had an ultrasound and a HIDA scan during this hospitalization due to sludge in the gallbladder. The HIDA scan did fill the gallbladder indicating that there is not acute cholecystitis. This is unlikely the cause of the ileus. I will order a CBC to see with a white count as today. Stiven Rodríguez MD Pager: [facility] [address] [place] [address], [address] [place] [address] Office:
[2019-06-13 17:26] LABS: Hematocrit 32.9 % (37-47); Hemoglobin 10.5 g/dL (12.0-15.0); Mean Corp Hgb Conc 31.9 g/dL (32-36); Mean Corpuscular Hgb 31.7 pg (27.0-32.0); Mean Corpuscular Volume 99.4 fL (81-99); Mean Platelet Vol. 9.4 fl (6.2-12.0); Platelet Count 157 K/mm3 (150-450); RBC Distribution Width CV 16.7 % (11.6-14.6); RBC Distribution Width SD 59.7 fl (35.1-43.9); Red Blood Count 3.31 M/mm3 (4.2-5.4); White Blood Count 5.8 K/mm3 (4.4-11.0)
[2019-06-13] MEDS: Atorvastatin Calcium 20 MG Tablet GT (21:00)
[2019-06-14] VITALS (40 sets, daily range): BP systolic 105–165; BP diastolic 44–88; PULSE 82–152; RESP 16–25; TEMP 36–36.8; O2SAT 88–98
[2019-06-14] MEDS: dilTIAZem 25 MG/5 ML Vial 20 MG IV BOLUS (03:12)
[2019-06-14 05:48] LABS: Hematocrit 32.2 % (37-47); Hemoglobin 10.2 g/dL (12.0-15.0); Mean Corp Hgb Conc 31.7 g/dL (32-36); Mean Corpuscular Hgb 31.7 pg (27.0-32.0); Mean Platelet Vol. 9.6 fl (6.2-12.0); Platelet Count 167 K/mm3 (150-450); RBC Distribution Width CV 17.2 % (11.6-14.6); RBC Distribution Width SD 62.3 fl (35.1-43.9); Red Blood Count 3.22 M/mm3 (4.2-5.4); White Blood Count 6.5 K/mm3 (4.4-11.0)
[2019-06-14] MEDS: 0.9% Normal Saline 1,000 ML 100 ML IV ×2 (05:51→15:36)
[2019-06-14] MEDS: Menthol/Lanolin/Calamine/Znox 113 GM Tube 1 APPLIC TOPICAL (05:51)
[2019-06-14 06:10] LABS: Anion Gap 12 (5-15); BUN 24 mg/dL (7-18); Calcium,Total 8.6 mg/dL (8.5-10.1); Chloride 102 mmol/L (98-107); EST Glomerular Filtration Rate 36 mL/min (>60); Est Glom Filt Rate - Afr Amer 43 mL/min (>60); Estimated Creatinine Clearance 22.61 ml/min; Glucose 57 mg/dL (74-106); Potassium 4.2 mmol/L (3.5-5.1); Sodium Level 143 mmol/L (136-145)
[2019-06-14] MEDS: Ipratropium 0.5 MG/2.5 ML SOLUTION INHALATION ×2 (07:29→19:02)
[2019-06-14] MEDS: Budesonide Respules 0.5 MG/2 ML AMPUL.NEB. INHALATION ×2 (07:29→19:02)
--- NOTE | 2019-06-14 08:26 | PN.SURG_ITS ---
Patient Problems: Active and Suspected Problems (Last Updated 06/12/19 @ 13:35 by Kellen Guajardo MD) Ileus (Acute) Subjective: The patient is still not passing any flatus. Her abdomen is not having any pain. - Physical Exam Vitals/I&O's: Vital Signs Temp Pulse Resp BP Pulse Ox 97.6 F L 102 H 16 160/49 H 95 06/14/19 04:45 06/14/19 07:38 06/14/19 07:04 06/14/19 07:04 06/14/19 05:00 Oxygen Flow Rate (L/min) 2 Oxygen Delivery Method Nasal Cannula Weight: 108 lb 7.479 oz Body Mass Index (BMI) 17.6 Intake and Output for Last 24 Hours 06/12/19 06/13/19 06/14/19 23:59 23:59 23:59 Intake Total 300 / 300 2080.00 / 2080.00 669.08 / 669.08 Output Total 425 / 425 1125 / 1975 1250 / 1250 Balance -125 / -125 955.00 / 105.00 -580.92 / -580.92 General: Alert, Oriented x3 Lungs: Normal air movement Cardiovascular: Regular rate, Regular Rhythm Abdomen: Soft, Non Tender, Distended Laboratory Results 06/13/19 17:12: WBC 5.8, RBC 3.31 L, Hgb 10.5 L, Hct 32.9 L, MCV 99.4 H, MCH 31.7, MCHC 31.9 L, RDW Std Deviation 59.7 H, RDW Coeff of Kellie 16.7 H, Plt Count 157, MPV 9.4 06/14/19 05:20: WBC 6.5, RBC 3.22 L, Hgb 10.2 L, Hct 32.2 L, MCV 100.0 H, MCH 31.7, MCHC 31.7 L, RDW Std Deviation 62.3 H, RDW Coeff of Kellie 17.2 H, Plt Count 167, MPV 9.6 06/14/19 05:20: Sodium 143, Potassium 4.2, Chloride 102, Carbon Dioxide 29.0, Anion Gap 12, BUN 24 H, Creatinine 1.50 H, Estim Creat Clear Calc 22.61, Est GFR (MDRD) Af Amer 43 L, Est GFR (MDRD) Non-Af 36 L, BUN/Creatinine Ratio 16.0, Glucose 57 L, Calcium 8.6 Current Medications Acetaminophen (Tylenol Liquid) 650 mg GT Q6H PRN PRN PRN Reason: Pain Score 1-3/Temp > 100.7 F Albuterol Sulfate (Ventolin Aerosols) 2.5 mg INHALATION Q2H PRN PRN PRN Reason: sob/wheezing Last Admin: 06/08/19 04:44 Dose: 2.5 mg Documented by: Alprazolam (Xanax) 0.25 mg GT DAILY PRN PRN PRN Reason: ANXIETY Atorvastatin Calcium (Lipitor) 20 mg GT QHS [facility] Last Admin: 06/13/19 21:00 Dose: 20 mg Documented by: Budesonide (Pulmicort Aerosol) 0.5 mg INHALATION Q12H.RT [facility] Last Admin: 06/14/19 07:29 Dose: 0.5 mg Documented by: Calamine/Phenol (Calmoseptine Ointment) 1 applic TOPICAL TID [facility]; Protocol Last Admin: 06/14/19 05:51 Dose: 1 applicatio Documented by: Calcium Carbonate (Tums) 1,000 mg GT DAILYCM [facility] Cholecalciferol (Vitamin D) 1,000 unit GT DAILY [facility] Last Admin: 06/13/19 10:48 Dose: 1,000 unit Documented by: Dextrose (D50w Syringe) 0 gm IV X1 PRN; Protocol PRN Reason: Hypoglycemia Enoxaparin Sodium (Lovenox) 50 mg SC Q24 [facility] Last Admin: 06/13/19 10:43 Dose: 50 mg Documented by: Glucagon () 1 mg IM .X1 PRN PRN Reason: Hypoglycemia Guaifenesin (Robitussin) 60 ml NG BID [facility] Last Admin: 06/13/19 21:00 Dose: 60 ml Documented by: Sodium Chloride () 250 mls @ 15 mls/hr IV .[id number] PRN PRN Reason: Saline Flush Sodium Chloride () 1,000 mls @ 100 mls/hr IV .Q10H [facility] Last Admin: 06/14/19 05:51 Dose: 100 mls/hr Documented by: Diltiazem HCl 125 mg/ Dextrose 125 mls @ 5 mls/hr IV .Q25H [facility]; Protocol Last Titration: 06/14/19 07:04 Dose: 5 mg/hr, 5 mls/hr Documented by: Ipratropium [place] (Atrovent) 0.5 mg INHALATION Q6HWA.RT [facility] Last Admin: 06/14/19 07:29 Dose: 0.5 mg Documented by: Lansoprazole (Lansoprazole) 30 mg NG DAILY [facility] Last Admin: 06/13/19 10:58 Dose: 30 mg Documented by: Ondansetron HCl (Zofran) 4 mg IV Q8H PRN PRN PRN Reason: NAUSEA Last Admin: 06/12/19 23:39 Dose: 4 mg Documented by: Senna/Docusate Sodium (Senokot-S, Martina-Colace) 2 tablet GT BID PRN PRN PRN Reason: Constipation Sodium Chloride () 10 - 40 ml IV UD PRN PRN Reason: SALINE FLUSH Last Admin: 06/13/19 14:20 Dose: 10 ml Documented by: Medical Necessity - Tobacco Use Smoking Status: Never smoker Tobacco Use: Cigarettes Assessment/Plan All Active Problems (Last Updated 06/12/19 @ 13:35 by Kellen Guajardo MD) Ileus (Acute) 78-year-old female with ileus 1. The patient reports that she is not passing any flatus. Her abdomen is soft and distended with no tenderness. Her NG is still bilious. I would recommend continuing NG suction until she is passing flatus. Encouraged any out of bed ambulation possible. Stiven Rodríguez MD Pager: [facility] [address] [place] [address], [address] [place] [address] Office:
[2019-06-14] MEDS: guaiFENesin 10 ML UDC (200MG/10ML) 60 ML NG ×2 (09:14→21:21)
[2019-06-14] MEDS: ROFLUMILAST 500 MCG TABLET GT (09:15)
[2019-06-14] MEDS: Calcium Carbonate 500 MG Tablet 1000 MG GT (09:15)
[2019-06-14] MEDS: Lansoprazole 15 MG Capsule.DR 30 MG NG (09:16)
[2019-06-14] MEDS: Enoxaparin 60 MG/0.6 ML Syringe 50 MG SC (09:17)
[2019-06-14] MEDS: Albuterol 2.5 MG/3 ML VIAL.NEB. INHALATION (11:46)
--- NOTE | 2019-06-14 13:17 | PN_ITS ---
<Stacey Anthony - Last Filed: 06/14/19 13:25> Patient Problems: Active and Suspected Problems (Last Updated 06/12/19 @ 13:35 by Kellen Guajardo MD) Ileus (Acute) Subjective: Patient seen and examined. Up to chair this morning. Discussed with patient plan of care and also palliative, hospice services. Patient would like to continue aggressive medical treatment and is not interested in hospice services at this time however she is agreeable to meet with palliative care which will occur later today. She is not passing flatus. NG tube in place. Requesting to eat. Abdominal pain and distention improved. - Physical Exam Vitals/I&O's: Vital Signs Temp Pulse Resp BP Pulse Ox 98.2 F 102 H 23 H 142/58 H 92 06/14/19 10:00 06/14/19 12:00 06/14/19 12:00 06/14/19 12:00 06/14/19 11:30 Oxygen Flow Rate (L/min) 4 Oxygen Delivery Method Nasal Cannula Weight: 108 lb 7.479 oz Body Mass Index (BMI) 17.6 Intake and Output for Last 24 Hours 06/12/19 06/13/19 06/14/19 23:59 23:59 23:59 Intake Total 300 / 300 2080.00 / 2080.00 917.50 / 917.50 Output Total 425 / 425 1125 / 1975 1400 / 1400 Balance -125 / -125 955.00 / 105.00 -482.50 / -482.50 General: Alert, Oriented x3, Cooperative HEENT: Atraumatic, PERRLA, EOMI, Normocephalic, - - NG in place Oral: Dry Mucosa Neck: Supple, No JVD, Negative Carotid Bruits Lungs: Clear to auscultation, Diminished Cardiovascular: - - Paroxysmal multifocal atrial tachycardia/paroxysmal atrial fibrillation Abdomen: Bowel Sounds Present, Soft, Non Tender, Non-Distended Extremities: No clubbing, No cyanosis, No edema, Capillary Refill Less than 3 Seconds Skin: No rashes, No breakdown, - - Cyanotic appearance distal fingers and toes. Stage I pressure ulcer of coccyx and sacral area. Musculoskeletal: No Tenderness to Palpation of Joints or Extremities Neurological: Cranial nerves II-XII grossly intact, Neuro grossly intact Psych/Mental Status: Flat Affect Laboratory Results 06/13/19 17:12: WBC 5.8, RBC 3.31 L, Hgb 10.5 L, Hct 32.9 L, MCV 99.4 H, MCH 31.7, MCHC 31.9 L, RDW Std Deviation 59.7 H, RDW Coeff of Kellie 16.7 H, Plt Count 157, MPV 9.4 06/14/19 05:20: WBC 6.5, RBC 3.22 L, Hgb 10.2 L, Hct 32.2 L, MCV 100.0 H, MCH 31.7, MCHC 31.7 L, RDW Std Deviation 62.3 H, RDW Coeff of Kellie 17.2 H, Plt Count 167, MPV 9.6 06/14/19 05:20: Sodium 143, Potassium 4.2, Chloride 102, Carbon Dioxide 29.0, Anion Gap 12, BUN 24 H, Creatinine 1.50 H, Estim Creat Clear Calc 22.61, Est GFR (MDRD) Af Amer 43 L, Est GFR (MDRD) Non-Af 36 L, BUN/Creatinine Ratio 16.0, Glucose 57 L, Calcium 8.6 Current Medications Acetaminophen (Tylenol Liquid) 650 mg GT Q6H PRN PRN PRN Reason: Pain Score 1-3/Temp > 100.7 F Albuterol Sulfate (Ventolin Aerosols) 2.5 mg INHALATION Q2H PRN PRN PRN Reason: sob/wheezing Last Admin: 06/14/19 11:46 Dose: 2.5 mg Documented by: Alprazolam (Xanax) 0.25 mg GT DAILY PRN PRN PRN Reason: ANXIETY Atorvastatin Calcium (Lipitor) 20 mg GT QHS [facility] Last Admin: 06/13/19 21:00 Dose: 20 mg Documented by: Budesonide (Pulmicort Aerosol) 0.5 mg INHALATION Q12H.RT [facility] Last Admin: 06/14/19 07:29 Dose: 0.5 mg Documented by: Calamine/Phenol (Calmoseptine Ointment) 1 applic TOPICAL TID [facility]; Protocol Last Admin: 06/14/19 05:51 Dose: 1 applicatio Documented by: Calcium Carbonate (Tums) 1,000 mg GT DAILYCM [facility] Last Admin: 06/14/19 09:15 Dose: 1,000 mg Documented by: Cholecalciferol (Vitamin D) 1,000 unit GT DAILY [facility] Last Admin: 06/14/19 09:17 Dose: 1,000 unit Documented by: Dextrose (D50w Syringe) 0 gm IV X1 PRN; Protocol PRN Reason: Hypoglycemia Enoxaparin Sodium (Lovenox) 50 mg SC Q24 [facility] Last Admin: 06/14/19 09:17 Dose: 50 mg Documented by: Glucagon () 1 mg IM .X1 PRN PRN Reason: Hypoglycemia Guaifenesin (Robitussin) 60 ml NG BID [facility] Last Admin: 06/14/19 09:14 Dose: 60 ml Documented by: Sodium Chloride () 250 mls @ 15 mls/hr IV .[id number] PRN PRN Reason: Saline Flush Sodium Chloride () 1,000 mls @ 100 mls/hr IV .Q10H [facility] Last Admin: 06/14/19 05:51 Dose: 100 mls/hr Documented by: Diltiazem HCl 125 mg/ Dextrose 125 mls @ 5 mls/hr IV .Q25H [facility]; Protocol Last Titration: 06/14/19 12:00 Dose: 10 mg/hr, 10 mls/hr Documented by: Ipratropium [place] (Atrovent) 0.5 mg INHALATION Q6HWA.RT [facility] Last Admin: 06/14/19 07:29 Dose: 0.5 mg Documented by: Lansoprazole (Lansoprazole) 30 mg NG DAILY [facility] Last Admin: 06/14/19 09:16 Dose: 30 mg Documented by: Ondansetron HCl (Zofran) 4 mg IV Q8H PRN PRN PRN Reason: NAUSEA Last Admin: 06/12/19 23:39 Dose: 4 mg Documented by: Senna/Docusate Sodium (Senokot-S, Martina-Colace) 2 tablet GT BID PRN PRN PRN Reason: Constipation Sodium Chloride () 10 - 40 ml IV UD PRN PRN Reason: SALINE FLUSH Last Admin: 06/13/19 14:20 Dose: 10 ml Documented by: Medical Necessity - Tobacco Use Smoking Status: Never smoker Tobacco Use: Cigarettes Assessment/Plan All Active Problems (Last Updated 06/12/19 @ 13:35 by Kellen Guajardo MD) Ileus (Acute) 1. Diffuse ileus-Abdominal CT on admission showed nonspecific ileus with diffuse fecal retention in the colon. Patient has had multiple KUBs which previously showed no obstruction, moderate stool in colon. Additional KUB completed 06/12/2018 and showed distal small bowel or colonic obstruction versus diffuse bowel ileus. NG placed. General surgery consulted. N.p.o. IV fluids. Encourage ambulation. Continue bowel regimen. Surgery recommending leaving NG in place until patient is passing flatus. 2. Atrial fibrillation with RVR, underlying multifocal atrial tachycardia-Recent echo May 2019 which demonstrated an EF of 65%, mild mitral valve insufficiency, mild tricuspid valve insufficiency, RVSP 84 mmHg. RVSP significantly increased from prior echo. Patient's rate has been difficult to control during admission. Placed on Cardizem drip overnight. Rate is stable and blood pressure appears to be tolerating. Patient follows with Dr. Montero, consider cardiology consult if rate continues to be difficult to maintain. 3. Urinary retention-urology following. Initiated on Flomax 0.4 mg twice daily. Waldrop catheter placed due to persistent retention with frequent straight cath. 4. Distended gallbladder/biliary sludge/abnormal HIDA scan-no current symptoms of gallbladder dysfunction. Surgery following, no concerns for cholecystitis at this time. 5. Acute Streptococcus agalactiae cystitis-completed 7-day course of antibiotics with Rocephin and Duricef. 6. Dysphagia-speech therapy following. Continue with dietary modifications per speech therapy recommendations. Patient underwent upper GI series which showed small sliding hiatal hernia with gastroesophageal reflux. Initiated on PPI. Patient and family do not want to follow speech therapy recommendations regarding thickened liquids. Counseled on potential repercussions and risk for aspiration. 7. Chronic COPD-no acute exacerbation. As needed albuterol aerosol. 8. Hypertension-stable, continue Cardizem regimen. 9. Hyperlipidemia-continue statin regimen. 10. Stage I Pressure ulcer of coccyx and sacral area- Q2 turns, calmoseptine ordered. 11. Debility- PT/OT. 12. Severe protein calorie malnutrition-nutrition consult. 13. Chronic kidney disease stage III- at baseline. DVT prophylaxis-Lovenox subcu Discharge planning: SNF when medically stable. Palliative care consult. This patient was seen by MARCELLUS Gibbs under the supervision of Dr. Guajardo. <Kellen Guajardo E - Last Filed: 06/14/19 13:48> - Physical Exam Vitals/I&O's: Vital Signs Temp Pulse Resp BP Pulse Ox 98.2 F 102 H 23 H 142/58 H 92 06/14/19 10:00 06/14/19 12:00 06/14/19 12:00 06/14/19 12:00 06/14/19 11:30 Oxygen Flow Rate (L/min) 4 Oxygen Delivery Method Nasal Cannula Weight: 108 lb 7.479 oz Body Mass Index (BMI) 17.6 Intake and Output for Last 24 Hours 06/12/19 06/13/19 06/14/19 23:59 23:59 23:59 Intake Total 300 / 300 2080.00 / 2080.00 917.50 / 917.50 Output Total 425 / 425 1125 / 1975 1400 / 1400 Balance -125 / -125 955.00 / 105.00 -482.50 / -482.50 Laboratory Results 06/13/19 17:12: WBC 5.8, RBC 3.31 L, Hgb 10.5 L, Hct 32.9 L, MCV 99.4 H, MCH 31.7, MCHC 31.9 L, RDW Std Deviation 59.7 H, RDW Coeff of Kellie 16.7 H, Plt Count 157, MPV 9.4 06/14/19 05:20: WBC 6.5, RBC 3.22 L, Hgb 10.2 L, Hct 32.2 L, MCV 100.0 H, MCH 31.7, MCHC 31.7 L, RDW Std Deviation 62.3 H, RDW Coeff of Kellie 17.2 H, Plt Count 167, MPV 9.6 06/14/19 05:20: Sodium 143, Potassium 4.2, Chloride 102, Carbon Dioxide 29.0, Anion Gap 12, BUN 24 H, Creatinine 1.50 H, Estim Creat Clear Calc 22.61, Est GFR (MDRD) Af Amer 43 L, Est GFR (MDRD) Non-Af 36 L, BUN/Creatinine Ratio 16.0, Glucose 57 L, Calcium 8.6 Current Medications Acetaminophen (Tylenol Liquid) 650 mg GT Q6H PRN PRN PRN Reason: Pain Score 1-3/Temp > 100.7 F Albuterol Sulfate (Ventolin Aerosols) 2.5 mg INHALATION Q2H PRN PRN PRN Reason: sob/wheezing Last Admin: 06/14/19 11:46 Dose: 2.5 mg Documented by: Alprazolam (Xanax) 0.25 mg GT DAILY PRN PRN PRN Reason: ANXIETY Atorvastatin Calcium (Lipitor) 20 mg GT QHS [facility] Last Admin: 06/13/19 21:00 Dose: 20 mg Documented by: Budesonide (Pulmicort Aerosol) 0.5 mg INHALATION Q12H.RT [facility] Last Admin: 06/14/19 07:29 Dose: 0.5 mg Documented by: Calamine/Phenol (Calmoseptine Ointment) 1 applic TOPICAL TID [facility]; Protocol Last Admin: 06/14/19 05:51 Dose: 1 applicatio Documented by: Calcium Carbonate (Tums) 1,000 mg GT DAILYCM [facility] Last Admin: 06/14/19 09:15 Dose: 1,000 mg Documented by: Cholecalciferol (Vitamin D) 1,000 unit GT DAILY [facility] Last Admin: 06/14/19 09:17 Dose: 1,000 unit Documented by: Dextrose (D50w Syringe) 0 gm IV X1 PRN; Protocol PRN Reason: Hypoglycemia Enoxaparin Sodium (Lovenox) 50 mg SC Q24 [facility] Last Admin: 06/14/19 09:17 Dose: 50 mg Documented by: Glucagon () 1 mg IM .X1 PRN PRN Reason: Hypoglycemia Guaifenesin (Robitussin) 60 ml NG BID [facility] Last Admin: 06/14/19 09:14 Dose: 60 ml Documented by: Sodium Chloride () 250 mls @ 15 mls/hr IV .[id number] PRN PRN Reason: Saline Flush Sodium Chloride () 1,000 mls @ 100 mls/hr IV .Q10H [facility] Last Admin: 06/14/19 05:51 Dose: 100 mls/hr Documented by: Diltiazem HCl 125 mg/ Dextrose 125 mls @ 5 mls/hr IV .Q25H [facility]; Protocol Last Titration: 06/14/19 12:00 Dose: 10 mg/hr, 10 mls/hr Documented by: Ipratropium [place] (Atrovent) 0.5 mg INHALATION Q6HWA.RT [facility] Last Admin: 06/14/19 07:29 Dose: 0.5 mg Documented by: Lansoprazole (Lansoprazole) 30 mg NG DAILY [facility] Last Admin: 06/14/19 09:16 Dose: 30 mg Documented by: Ondansetron HCl (Zofran) 4 mg IV Q8H PRN PRN PRN Reason: NAUSEA Last Admin: 06/12/19 23:39 Dose: 4 mg Documented by: Senna/Docusate Sodium (Senokot-S, Martina-Colace) 2 tablet GT BID PRN PRN PRN Reason: Constipation Sodium Chloride () 10 - 40 ml IV UD PRN PRN Reason: SALINE FLUSH Last Admin: 06/13/19 14:20 Dose: 10 ml Documented by: Assessment/Plan Hospitalist note: I am seeing this patient in conjunction with Stacey Anthony. I independently seen and examined the patient. Progress note above and laboratory data reviewed and I concur with the above work-up and treatment plan. She complained of abdominal soreness, distention. She has no flatus and she has no bowel movements. Patient wishes to continue aggressive medical treatment at this point. Discussed with the patient's daughter again she is stating that she stil l wants everything to be done except CPR, intubation and ventilation. Patient remains in A. fib with RVR, patient stable, pulse ox is 93% on 4 - Physical Exam General: Alert, lethargic, arousable, cooperative, chronically ill looking. HEENT: Atraumatic, PERRLA, EOMI. Neck: Supple, No JVD, Negative Carotid Bruits, Trachea Midline, Thyroid Normal. Lungs: Decreased breath sounds bilateral, otherwise clear no rhonchi, No wheeze, No rales. Cardiovascular: Regular rate, Regular Rhythm, Normal S1, Normal S2, PMI Normal, tachycardia. Abdomen: Hypoactive bowel sounds, tender, distended, no guarding or rigidity, No Hepato-splenomegaly. Extremities: No clubbing, No edema. Sole of the foot looking cyanotic, chronic. Skin: No rashes, No breakdown Neurological: Cranial nerves are intact, neuro grossly intact Assessment and plan: #1 small bowel obstruction versus bowel ileus: On NG tube suction IV medications. General surgery consulted and stated likely have bolus. Serum lites are within normal limits. Still having abdomen distention, no flatus or bowel movement. Plan to continue same treatment. #2 A. fib with RVR: She is back on IV Cardizem drip. Heart rate has been around 100, blood pressure stable. Troponin is negative. 2D echocardiogram reviewed as above. I do not think this patient is a candidate for long-term anticoagulation. Serum potassium and magnesium were normal. #3 Streptococcus agalactiae acute cystitis: Completed 7 days of treatment with IV Rocephin and then transitioned to Duricef which also completed. #4 urinary retention: On Waldrop catheter, will continue Flomax. #5 distended gallbladder/biliary sludge/abnormal HIDA scan: Patient denied any right upper quadrant abdominal pain. LFT was normal. Lipase was normal. #7 dysphagia: Underwent upper GI series, reviewed. She is on PPI for GERD. Speech therapy is seeing the patient, she is on n.p.o. at this time. #8 other chronic medical problems: Stable, continue current medications as above. This note was generated with [employer] dictation software. It may contain incorrect words, spelling, and punctuation that were not noted in checking the note before signing. Code Visit Inpatient E&M: 91953 Subs Hosp L2
--- NOTE | 2019-06-14 13:26 | RAD_ITS ---
STUDY: X-RAY CHEST REASON FOR EXAM: Female, 78 years old. Shortness of breath. TECHNIQUE: Single AP portable view of the chest. COMPARISON: Prior chest radiograph of June 10, 2019 FINDINGS: Enteric tube is in the gastric lumen 10 cm below the gastroesophageal junction. Continued bibasilar infiltrates, right greater the left and probably a small right pleural effusion. Emphysematous changes. Normal size heart. Normal mediastinum and cecile. Normal visualized pulmonary arteries. There is atherosclerotic calcification of the aortic arch with tortuosity. There are diffuse degenerative changes of the visualized thoracic spine. Normal visualized ribs, clavicles, and shoulders. There is no demonstrated abnormality of the visualized soft tissue structures of the upper abdomen. RAD/Chest 1 View (Portable) IMPRESSION: Continued bibasilar infiltrates, right greater than left and a probable small right pleural effusion. Underlying emphysematous changes. Findings are not substantially improved from the prior chest radiograph of June 10, 2019. Enteric tube terminates in the gastric lumen 10 cm below the gastroesophageal junction. Electronically Signed: Loni Farr MD at 16:55 EST , Service support ,
--- NOTE | 2019-06-14 13:44 | CASEMGMT ---
EMMETT let Susan at [facility] know that patient is still at [facility] so she can meet with them here. EMMETT also let Hollie at [facility] know that patient is not returning today. EMMETT also faxed Hollie updates. Tala PRATER
--- NOTE | 2019-06-14 13:46 | NURSING ---
read and reviewed SN documentation
--- NOTE | 2019-06-14 13:49 | NURSING ---
read and reviewed SN documentation
[2019-06-14 19:22] LABS: Magnesium 2.4 mg/dL (1.6-2.6); Phosphorus 4.7 mg/dL (2.5-4.9)
[2019-06-14] MEDS: Atorvastatin Calcium 20 MG Tablet GT (21:21)
[2019-06-15] VITALS (39 sets, daily range): BP systolic 114–164; BP diastolic 41–85; PULSE 92–133; RESP 16–31; TEMP 36.2–36.8; O2SAT 92–95
[2019-06-15] MEDS: 0.9% Normal Saline 1,000 ML 100 ML IV (01:40)
[2019-06-15 06:30] LABS: Anion Gap 11 (5-15); BUN 27 mg/dL (7-18); Calcium,Total 8.4 mg/dL (8.5-10.1); Chloride 106 mmol/L (98-107); Creatinine, Serum 1.59 mg/dL (0.55-1.02); EST Glomerular Filtration Rate 33 mL/min (>60); Est Glom Filt Rate - Afr Amer 40 mL/min (>60); Estimated Creatinine Clearance 23.44 ml/min; Glucose 64 mg/dL (74-106); Potassium 3.8 mmol/L (3.5-5.1); Sodium Level 142 mmol/L (136-145)
[2019-06-15] MEDS: Budesonide Respules 0.5 MG/2 ML AMPUL.NEB. INHALATION ×2 (07:25→19:05)
[2019-06-15] MEDS: Ipratropium 0.5 MG/2.5 ML SOLUTION INHALATION ×3 (07:25→19:04)
--- NOTE | 2019-06-15 08:27 | PCM.PN.SRG ---
Patient Problems: Active and Suspected Problems (Last Updated 06/14/19 @ 20:58 by Stephanie Marroquin) Ileus (Acute) Subjective: Patient reports no flatus. No abdominal pain either. - Physical Exam Vitals/I&O's: Vital Signs Temp Pulse Resp BP Pulse Ox 98.2 F 104 H 18 161/49 H 92 06/15/19 04:00 06/15/19 07:25 06/15/19 07:25 06/15/19 07:00 06/15/19 07:25 Oxygen Flow Rate (L/min) 3 Oxygen Delivery Method Nasal Cannula Weight: 110 lb 7.225 oz Body Mass Index (BMI) 17.6 Intake and Output for Last 24 Hours 06/13/19 06/14/19 06/15/19 23:59 23:59 23:59 Intake Total 2080.00 / 2080.00 2111.67 / 2112.50 1070.83 / 1070.83 Output Total 1124 / 2024 475 / 475 Balance 955.00 / 105.00 86.67 / 87.50 595.83 / 595.83 General: Alert, Cooperative Cardiovascular: Regular Rhythm, Tachycardic Abdomen: Soft, Non Tender, Distended Laboratory Results 06/14/19 05:20: Phosphorus 4.7, Magnesium 2.4 06/15/19 05:50: Sodium 142, Potassium 3.8, Chloride 106, Carbon Dioxide 25.0, Anion Gap 11, BUN 27 H, Creatinine 1.59 H, Estim Creat Clear Calc 23.44, Est GFR (MDRD) Af Amer 40 L, Est GFR (MDRD) Non-Af 33 L, BUN/Creatinine Ratio 17.0, Glucose 64 L, Calcium 8.4 L Current Medications Acetaminophen (Tylenol Liquid) 650 mg GT Q6H PRN PRN PRN Reason: Pain Score 1-3/Temp > 100.7 F Albuterol Sulfate (Ventolin Aerosols) 2.5 mg INHALATION Q2H PRN PRN PRN Reason: sob/wheezing Last Admin: 06/14/19 11:46 Dose: 2.5 mg Documented by: Alprazolam (Xanax) 0.25 mg GT DAILY PRN PRN PRN Reason: ANXIETY Atorvastatin Calcium (Lipitor) 20 mg GT QHS [facility] Last Admin: 06/14/19 21:21 Dose: 20 mg Documented by: Budesonide (Pulmicort Aerosol) 0.5 mg INHALATION Q12H.RT [facility] Last Admin: 06/15/19 07:25 Dose: 0.5 mg Documented by: Calamine/Phenol (Calmoseptine Ointment) 1 applic TOPICAL TID [facility]; Protocol Last Admin: 06/15/19 06:11 Dose: Not Given Documented by: Calcium Carbonate (Tums) 1,000 mg GT DAILYCM [facility] Last Admin: 06/14/19 09:15 Dose: 1,000 mg Documented by: Cholecalciferol (Vitamin D) 1,000 unit GT DAILY [facility] Last Admin: 06/14/19 09:17 Dose: 1,000 unit Documented by: Dextrose (D50w Syringe) 0 gm IV X1 PRN; Protocol PRN Reason: Hypoglycemia Enoxaparin Sodium (Lovenox) 50 mg SC Q24 [facility] Last Admin: 06/14/19 09:17 Dose: 50 mg Documented by: Glucagon () 1 mg IM .X1 PRN PRN Reason: Hypoglycemia Guaifenesin (Robitussin) 60 ml NG BID [facility] Last Admin: 06/14/19 21:21 Dose: 60 ml Documented by: Sodium Chloride () 250 mls @ 15 mls/hr IV .[id number] PRN PRN Reason: Saline Flush Sodium Chloride () 1,000 mls @ 100 mls/hr IV .Q10H [facility] Last Admin: 06/15/19 01:40 Dose: 100 mls/hr Documented by: Diltiazem HCl 125 mg/ Dextrose 125 mls @ 5 mls/hr IV .Q25H [facility]; Protocol Last Titration: 06/15/19 07:00 Dose: 10 mg/hr, 10 mls/hr Documented by: Ipratropium [place] (Atrovent) 0.5 mg INHALATION Q6HWA.RT [facility] Last Admin: 06/15/19 07:25 Dose: 0.5 mg Documented by: Lansoprazole (Lansoprazole) 30 mg NG DAILY [facility] Last Admin: 06/14/19 09:16 Dose: 30 mg Documented by: Ondansetron HCl (Zofran) 4 mg IV Q8H PRN PRN PRN Reason: NAUSEA Last Admin: 06/12/19 23:39 Dose: 4 mg Documented by: Senna/Docusate Sodium (Senokot-S, Martina-Colace) 2 tablet GT BID PRN PRN PRN Reason: Constipation Sodium Chloride () 10 - 40 ml IV UD PRN PRN Reason: SALINE FLUSH Last Admin: 06/13/19 14:20 Dose: 10 ml Documented by: Medical Necessity - Tobacco Use Smoking Status: Former smoker Tobacco Use: Cigarettes Assessment/Plan All Active Problems (Last Updated 06/14/19 @ 20:58 by Stephanie Marroquin) Ileus (Acute) 78-year-old female with ileus 1. The patient reports that she is feeling short of breath. She is also tachycardic. Her abdomen is soft but distended. She is not passing any flatus. She had over 1300 cc of output from her NG and it was bilious. Recommend continuing NG suctioning and I encourage his muscles possible for her to get out of bed and stay vertical and use incentive spirometer. Nitrites were checked and were normal. KUB in the morning. I explained to the patient's daughter in detail that there is no treatment for an ileus. Underlying factors are being optimized and electrolytes are normal. I explained the getting out of bed and using incentive spirometer may help. Stiven Rodríguez MD Pager: [facility] [address] [place] [address], [address] [place] [address] Office:
--- NOTE | 2019-06-15 09:43 | PN_ITS ---
Patient Problems: Active and Suspected Problems (Last Reviewed 06/15/19 @ 08:45 by Stephanie Marroquin) Ileus (Acute) Subjective: Chief complaint: Follow-up after admission for small bowel obstruction versus bowel ileus, A. fib with RVR, acute cystitis and urinary retention. Patient seen and examined. No acute events overnight. She complained of abdominal soreness, no real pain. Denied nausea vomiting. Remains on NG tube suction. She had no flatus, no bowel movement. She complained of mild shortness of breath, no cough or sputum production. She is afebrile, heart rate has been around 110, blood pressure stable, pulse ox is 92% on 3 L. - Physical Exam Vitals/I&O's: Vital Signs Temp Pulse Resp BP Pulse Ox 97.3 F L 112 H 25 H 162/52 H 92 06/15/19 08:00 06/15/19 09:00 06/15/19 09:00 06/15/19 09:00 06/15/19 09:00 Oxygen Flow Rate (L/min) 3 Oxygen Delivery Method Nasal Cannula Weight: 110 lb 7.225 oz Body Mass Index (BMI) 17.6 Intake and Output for Last 24 Hours 06/13/19 06/14/19 06/15/19 23:59 23:59 23:59 Intake Total 2080.00 / 2080.00 2111.67 / 2112.50 1080.83 / 1080.83 Output Total 1124 475 / 475 Balance 955.00 / 105.00 86.67 / 87.50 605.83 / 605.83 General: Alert, Oriented x3, Cooperative, - - Mildly short of breath. HEENT: Atraumatic, PERRLA, EOMI, Normocephalic Oral: Moist Mucosa, No Gingival or Mucosal Lesions/ Ulcerations Neck: Supple, No JVD, Negative Carotid Bruits, Trachea Midline, Thyroid Normal Size and Texture Lungs: Clear to auscultation, No rhonchi, No wheeze, No rales, Diminished, - - Decreased breath sounds at the bases, otherwise clear. Cardiovascular: Normal S1, Normal S2, No murmurs, PMI Normal, Irregular Rate, Tachycardic Abdomen: Non Tender, No Hepato-splenomegaly, Hypoactive Bowel Sounds, Distended Extremities: No clubbing, No cyanosis, Edema - Trace edema. Skin: No rashes, No breakdown Lymphatic: No Cervical, Supraclavicular, or Inguinal Adenopathy Neurological: Cranial nerves II-XII grossly intact, Neuro grossly intact Psych/Mental Status: Appropriate, Flat Affect, Alert and oriented to time, place, person, mood and affect Laboratory Results 06/14/19 05:20: Phosphorus 4.7, Magnesium 2.4 06/15/19 05:50: Sodium 142, Potassium 3.8, Chloride 106, Carbon Dioxide 25.0, Anion Gap 11, BUN 27 H, Creatinine 1.59 H, Estim Creat Clear Calc 23.44, Est GFR (MDRD) Af Amer 40 L, Est GFR (MDRD) Non-Af 33 L, BUN/Creatinine Ratio 17.0, Glucose 64 L, Calcium 8.4 L Current Medications Acetaminophen (Tylenol Liquid) 650 mg GT Q6H PRN PRN PRN Reason: Pain Score 1-3/Temp > 100.7 F Albuterol Sulfate (Ventolin Aerosols) 2.5 mg INHALATION Q2H PRN PRN PRN Reason: sob/wheezing Last Admin: 06/14/19 11:46 Dose: 2.5 mg Documented by: Alprazolam (Xanax) 0.25 mg GT DAILY PRN PRN PRN Reason: ANXIETY Atorvastatin Calcium (Lipitor) 20 mg GT QHS [facility] Last Admin: 06/14/19 21:21 Dose: 20 mg Documented by: Budesonide (Pulmicort Aerosol) 0.5 mg INHALATION Q12H.RT [facility] Last Admin: 06/15/19 07:25 Dose: 0.5 mg Documented by: Calamine/Phenol (Calmoseptine Ointment) 1 applic TOPICAL TID [facility]; Protocol Last Admin: 06/15/19 06:11 Dose: Not Given Documented by: Calcium Carbonate (Tums) 1,000 mg GT DAILYCM [facility] Last Admin: 06/14/19 09:15 Dose: 1,000 mg Documented by: Cholecalciferol (Vitamin D) 1,000 unit GT DAILY [facility] Last Admin: 06/14/19 09:17 Dose: 1,000 unit Documented by: Dextrose (D50w Syringe) 0 gm IV X1 PRN; Protocol PRN Reason: Hypoglycemia Enoxaparin Sodium (Lovenox) 50 mg SC Q24 [facility] Last Admin: 06/14/19 09:17 Dose: 50 mg Documented by: Glucagon () 1 mg IM .X1 PRN PRN Reason: Hypoglycemia Guaifenesin (Robitussin) 60 ml NG BID [facility] Last Admin: 06/14/19 21:21 Dose: 60 ml Documented by: Sodium Chloride () 250 mls @ 15 mls/hr IV .[id number] PRN PRN Reason: Saline Flush Sodium Chloride () 1,000 mls @ 75 mls/hr IV .[id number] [facility] Last Admin: 06/15/19 01:40 Dose: 100 mls/hr Documented by: Diltiazem HCl 125 mg/ Dextrose 125 mls @ 5 mls/hr IV .Q25H [facility]; Protocol Last Titration: 06/15/19 08:00 Dose: 10 mg/hr, 10 mls/hr Documented by: Ipratropium [place] (Atrovent) 0.5 mg INHALATION Q6HWA.RT [facility] Last Admin: 06/15/19 07:25 Dose: 0.5 mg Documented by: Lansoprazole (Lansoprazole) 30 mg NG DAILY [facility] Last Admin: 06/14/19 09:16 Dose: 30 mg Documented by: Ondansetron HCl (Zofran) 4 mg IV Q8H PRN PRN PRN Reason: NAUSEA Last Admin: 06/12/19 23:39 Dose: 4 mg Documented by: Senna/Docusate Sodium (Senokot-S, Martina-Colace) 2 tablet GT BID PRN PRN PRN Reason: Constipation Sodium Chloride () 10 - 40 ml IV UD PRN PRN Reason: SALINE FLUSH Last Admin: 06/13/19 14:20 Dose: 10 ml Documented by: Medical Necessity - Tobacco Use Tobacco Use: Cigarettes Assessment/Plan All Active Problems (Last Reviewed 06/15/19 @ 08:45 by Stephanie Marroquin) Ileus (Acute) This is a 78 years old female patient presented to the emergency room because of weakness and poor oral intake, found to have A. fib with RVR, acute cystitis, urinary retention as well as dysphagia and later, she developed suspected small bowel obstruction versus ileus. #1 small bowel obstruction versus bowel ileus: Remained on NG tube suction, IV fluids and IV pain medications. Patient still having abdominal distention, no flatus and no bowel movements. Her serum elect lites are within normal limits. General surgery on the case, recommended ambulation and no surgical intervention at this time. Patient and her daughter encouraged for ambulation which will help her ileus. I informed the patient and her daughter that complications such as pneumonia might happen since the patient has been in the bed most of her time. Plan to continue same treatment, repeat CBC and BMP tomorrow morning. #2 A. fib with RVR: Remained on IV Cardizem drip. Heart rate has been around 100, blood pressure stable. Troponin is negative. 2D echocardiogram reviewed as above. I do not think this patient is a candidate for long-term anticoagulation. Serum potassium and magnesium were normal. #3 Streptococcus agalactiae acute cystitis: Completed 7 days of treatment with IV Rocephin and then transitioned to Duricef which also completed. #4 urinary retention: On Waldrop catheter. #5 distended gallbladder/biliary sludge/abnormal HIDA scan: Patient denied any right upper quadrant abdominal pain. LFT was normal. Lipase was normal. #7 dysphagia: Underwent upper GI series, reviewed. She is on PPI for GERD. S [employer] therapy is seeing the patient, she is on n.p.o. at this time. #8 COPD: On Pulmicort twice daily, Atrovent and albuterol as needed. She is on 3 L of oxygen. Chest x-ray from yesterday reviewed, revealed haziness on the basis, possible early infiltrate but it is probably atelectasis. Patient has been afebrile, no leukocytosis. Plan to monitor. #9 hypertension: Blood pressure stable, she is only on IV Cardizem drip as above. #10 stage I sacral pressure ulcer: Wound care nurse consulted. #11 severe protein calorie malnutrition: Nutrition has been seeing the patient. #12 stage III chronic kidney disease: Baseline creatinine has been around 1.4 to 1.9 mg/dL. Today's creatinine is 1.59, stable at baseline. #13 DVT prophylaxis: Start subcu heparin. DC subcu Lovenox. This note was generated with [employer] software. It may contain incorrect words, spelling, and punctuation that were not noted in checking the note before signing. Code Visit Inpatient E&M: 56863 Subs Hosp L2
[2019-06-15] MEDS: Enoxaparin 60 MG/0.6 ML Syringe 50 MG SC (10:16)
[2019-06-15] MEDS: Calcium Carbonate 500 MG Tablet 1000 MG GT (10:17)
[2019-06-15] MEDS: ROFLUMILAST 500 MCG TABLET GT (10:17)
[2019-06-15] MEDS: Lansoprazole 15 MG Capsule.DR 30 MG NG (10:17)
[2019-06-15] MEDS: guaiFENesin 10 ML UDC (200MG/10ML) 60 ML NG (10:18)
[2019-06-15] MEDS: 0.9% Normal Saline 1,000 ML 75 ML IV (11:19)
--- NOTE | 2019-06-15 13:16 | CASEMGMT ---
EMMETT spoke with Susan from Palliative Care. Patient and family said they want to wait until patient gets to [facility] to see if they feel Palliative Care will help. Their oysterman goal is to get patient strong enough so she can go home and then have her go home on Hospice. EMMETT told her we will let her know when patient is discharged. Tala PRATER
[2019-06-15] MEDS: Menthol/Lanolin/Calamine/Znox 113 GM Tube 1 APPLIC TOPICAL ×2 (14:37→21:33)
[2019-06-15] MEDS: Heparin Injection (Vial) 5,000 UNIT/ML VIAL 5000 UNIT SC ×2 (14:37→21:38)
--- NOTE | 2019-06-15 15:55 | NS ---
Pt NPO day 2. Pt presented w/ chronic malnutrition on admission and had compromised PO intake prior to ileus. If pt unable to meet >50% of estimated nutrition requirements enterally/orally within the next 24-48 hours, consider parenteral nutrition support. Would recommend 1L 5%AA/20% dextrose solution at 42mL/hr to provide 880 calories, 50 g AA per day. Recommend 500mL 20% lipid solution 3x/week to provide an additional 1000 calories per infusion. Daily average calorie intake would be 1308 calories/day, meeting >75% of pt's estimated nutritional needs. Recommend close monitoring of electrolytes as pt at significant risk for refeeding syndrome. Recommend collection of baseline triglyceride levels prior to TPN initiation. Recommend daily wts. Melanie Fermin RDN, LD
[2019-06-15] MEDS: Atorvastatin Calcium 20 MG Tablet PO (21:33)
[2019-06-15] MEDS: guaiFENesin 1,200 MG Tablet 1200 MG PO (21:35)
[2019-06-16] VITALS (29 sets, daily range): BP systolic 40–154; BP diastolic 29–72; PULSE 0–112; RESP 18–34; TEMP 36.2–36.8; O2SAT 90–96
[2019-06-16] MEDS: Albuterol 2.5 MG/3 ML VIAL.NEB. INHALATION (00:35)
[2019-06-16] MEDS: 0.9% Normal Saline 1,000 ML 75 ML IV (01:05)
--- NOTE | 2019-06-16 01:05 | RAD_ITS ---
STUDY: X-RAY CHEST REASON FOR EXAM: Female, 78 years old. Productive cough. TECHNIQUE: Single AP portable view of the chest. COMPARISON: 06/14/2019. FINDINGS: There has been interval removal of previously seen nasogastric tube. The lungs are slightly underexpanded with mild right-sided pleural effusion versus pleural thickening. There is mild bilateral basilar atelectasis, slightly more obvious compared to prior examination due to mild decrease in the respiratory effort. There is a right perihilar opacity most compatible with atelectasis and scarring, stable.. Normal size heart. Normal mediastinum and cecile. Normal visualized pulmonary arteries. There is atherosclerotic calcification of the aortic arch with tortuosity. There is demineralization of the osseous structures. There is degenerative osteoarthritis of the bilateral shoulders. There is no demonstrated abnormality of the visualized soft tissue structures of the upper abdomen. RAD/Chest 1 View (Portable) IMPRESSION: Bilateral basilar atelectasis with right perihilar atelectasis/scarring, overall stable study in the interval. Electronically Signed: Emily Mar MD at 1:38 EST , Service support ,
--- NOTE | 2019-06-16 01:09 | PCM.HOSP.N ---
Hospitalist Note Respiratory this patient had a pulse ox of 85%. Went to evaluate the patient and patient had a difficulty obtaining pulse ox on her fingers and that was a measurement from her fingers. A pulse ox was measured on her earlobe and was measuring at 97%. Patient has been coughing up brown phlegm tonight there is been no obvious vomiting this evening. Went to examine the patient and patient is very listless. An Acapella valve was tried with patient and she had very poor effort associated with that. I asked the patient's daughter if patient has any history of any neurologic disease, such as Parkinson's, she denies that. Asked the patient's daughter also if the patient has a history of ray nods. The daughter is unaware of that but did state when I asked if the patient has issues with painful fingers in the cold and the daughter states that she did. Daughter does not recall her fingers are being struck white in the cold though. The patient is very listless. Lung sounds are coarse bilaterally. And fingers are slightly paler than her hand and patient has some rubor of her toes. Plan: We will check a chest x-ray. Try pulmonary toilet best as possible but can be limited due to the patient's poor effort. Review medications do not show any culprit medications. Present limb is ordered but not received and will discontinue that. And for possible ray nods, started patient on amlodipine 5mg and this patient's blood pressure will tolerate it at this time. Discussed with patient's daughter and all questions were answered to the best my ability at that point time.
[2019-06-16] MEDS: amLODIPine 5 MG Tablet PO (01:32)
--- NOTE | 2019-06-16 05:55 | RAD_ITS ---
HISTORY: Ileus. Exam is a single view of the abdomen obtained portably with the patient supine. A chest x-ray is available from June 14, 2019. A CT scan of the abdomen and pelvis with oral contrast is available from June 13, 2019. A single view of the abdomen is available from June 13, 2019. Findings: Since the previous x-ray of the abdomen the esophagogastric tube has been removed. The amount of oral contrast within many dilated loops of small bowel has diminished. The amount of contrast within the pelvis and likely sigmoid colon and rectum has diminished but persists. Very small amounts of contrast remaining throughout much of the small bowel. The small bowel loops do appear to be slightly dilated. Multilevel degenerative disc disease is present. Scoliosis persists. RAD/Abdomen Single View (Portable) IMPRESSION: Persistently abnormally dilated loops of small bowel consistent with an ileus, however, there is a decreased amount of contrast within small bowel and even a decreased amount within the remaining colon. at 0144 Reported and signed by: Davi Sanderson MD Electronically Signed: Davi Sanderson MD at 1:43 EST Tel , Service support ,
[2019-06-16] MEDS: Heparin Injection (Vial) 5,000 UNIT/ML VIAL 5000 UNIT SC ×2 (06:47→15:07)
[2019-06-16] MEDS: Budesonide Respules 0.5 MG/2 ML AMPUL.NEB. INHALATION (07:02)
[2019-06-16] MEDS: Ipratropium 0.5 MG/2.5 ML SOLUTION INHALATION ×2 (07:02→13:24)
[2019-06-16 07:11] LABS: Hematocrit 28.8 % (37-47); Hemoglobin 9.2 g/dL (12.0-15.0); Mean Corp Hgb Conc 31.9 g/dL (32-36); Mean Corpuscular Hgb 32.2 pg (27.0-32.0); Mean Corpuscular Volume 100.7 fL (81-99); Mean Platelet Vol. 9.6 fl (6.2-12.0); POSITIVE MORPHOLOGY YES; Platelet Count 176 K/mm3 (150-450); RBC Distribution Width CV 17.7 % (11.6-14.6); Red Blood Count 2.86 M/mm3 (4.2-5.4); White Blood Count 7.5 K/mm3 (4.4-11.0)
[2019-06-16 07:32] LABS: Anion Gap 9 (5-15); BUN 28 mg/dL (7-18); BUN/Creat Ratio 16.4 RATIO (10-20); Calcium,Total 8.3 mg/dL (8.5-10.1); Chloride 107 mmol/L (98-107); Creatinine, Serum 1.71 mg/dL (0.55-1.02); EST Glomerular Filtration Rate 31 mL/min (>60); Est Glom Filt Rate - Afr Amer 37 mL/min (>60); Estimated Creatinine Clearance 21.88 ml/min; Glucose 101 mg/dL (74-106); Potassium 3.7 mmol/L (3.5-5.1); Sodium Level 143 mmol/L (136-145)
[2019-06-16 07:50] LABS: Scan Smear per Review Criteria MANUAL DIFF
[2019-06-16 07:51] LABS: Differential Indicated MANUAL DIFF; Neutrophil # 5.85 X10^3/uL (2.7-7.7)
[2019-06-16 07:52] LABS: Absolute Lymphocyte Count 1.05 X10^3/uL (0.83-4.51); Absolute Neutrophil Count 5.9 X10^3/uL (2.0-7.7); Eosinophil 2 % (0-5); Lymphocyte 14 % (19-41); Lymphocyte # 1.05 X10^3/ul (4.0); Metamyelocyte 1 % (0-1); Monocyte 4 % (0-10); Myelocyte 1 (0-0); Neutrophil-Band 19 % (0-5); Neutrophil-Segmented 59 % (47-70); Total Cells Counted 100 (MANUAL DIFF)
[2019-06-16 07:53] LABS: Anisocytosis 2+; Platelet Estimate ADEQUATE (ADEQ)
[2019-06-16] MEDS: Furosemide 40 MG/4 ML Vial IV (07:55)
--- NOTE | 2019-06-16 08:01 | PCM.PN.SRG ---
Patient Problems: Active and Suspected Problems (Last Reviewed 06/15/19 @ 08:45 by Stephanie Marroquin) Ileus (Acute) Subjective: Patient reports no nausea or vomiting overnight though she has been coughing up productive brown sputum. She reports that she had a liquid bowel movement yesterday. She is still mildly distended but not having any abdominal pain. - Physical Exam Vitals/I&O's: Vital Signs Temp Pulse Resp BP Pulse Ox 97.8 F 98 18 150/60 H 95 06/16/19 07:00 06/16/19 07:02 06/16/19 07:02 06/16/19 07:00 06/16/19 07:02 Oxygen Flow Rate (L/min) 3 Oxygen Delivery Method Nasal Cannula Weight: 110 lb 14.28 oz Body Mass Index (BMI) 17.6 Intake and Output for Last 24 Hours 06/14/19 06/15/19 06/16/19 23:59 23:59 23:59 Intake Total 2111.67 / 2112.50 2264.00 / 2264.00 1236.50 / 1236.50 Output Total 2024 / 2024 625 / 625 125 / 125 Balance 86.67 / 87.50 1639.00 / 1639.00 1111.50 / 1111.50 General: Alert, Oriented x3 Lungs: Normal air movement Cardiovascular: Regular rate, Regular Rhythm Abdomen: Distended Laboratory Results 06/16/19 06:37: WBC 7.5, RBC 2.86 L, Hgb 9.2 L, Hct 28.8 L, MCV 100.7 H, MCH 32.2 H, MCHC 31.9 L, RDW Std Deviation 65.0 H, RDW Coeff of Kellie 17.7 H, Plt Count 176, MPV 9.6, Immature Gran % (Auto) SHELL GRADER, Neut % (Auto) SHELL GRADER, Lymph % (Auto) SHELL GRADER, Gu[place]upe % (Auto) SHELL GRADER, Eos % (Auto) SHELL GRADER, Baso % (Auto) SHELL GRADER, Absolute Neuts (auto) 5.9, Absolute Lymphs (auto) 1.05, Total Counted 100, Neutrophils % (Manual) 59, Band Neutrophils % 19 H, Lymphocytes % (Manual) 14 L, Monocytes % (Manual) 4, Eosinophils % (Manual) 2, Metamyelocytes % 1, Myelocytes % 1 H, Nucleated RBC % SHELL GRADER, Diff Path Review November foll, Platelet Estimate ADEQUATE, Anisocytosis 2+ 06/16/19 06:37: Sodium 143, Potassium 3.7, Chloride 107, Carbon Dioxide 27.0, Anion Gap 9, BUN 28 H, Creatinine 1.71 H, Estim Creat Clear Calc 21.88, Est GFR (MDRD) Af Amer 37 L, Est GFR (MDRD) Non-Af 31 L, BUN/Creatinine Ratio 16.4, Glucose 101, Calcium 8.3 L Clinical Impression(s) from Imaging Studies Chest X-Ray 06/16/19 01:05 IMPRESSION: Bilateral basilar atelectasis with right perihilar atelectasis/scarring, overall stable study in the interval. Electronically Signed: Emily Mar MD at 1:38 EST , Service support , KUB X-Ray 06/16/19 05:55 IMPRESSION: Persistently abnormally dilated loops of small bowel consistent with an ileus, however, there is a decreased amount of contrast within small bowel and even a decreased amount within the remaining colon. at 0144 Reported and signed by: Davi Sanderson MD Electronically Signed: Davi Sanderson MD at 1:43 EST Tel , Service support , Current Medications Acetaminophen (Tylenol) 650 mg PO Q6H PRN PRN PRN Reason: Pain Score 1-3/Temp > 100.7 F Albuterol Sulfate (Ventolin Aerosols) 2.5 mg INHALATION Q2H PRN PRN PRN Reason: sob/wheezing Last Admin: 06/16/19 00:35 Dose: 2.5 mg Documented by: Amlodipine Besylate (Norvasc) 5 mg PO DAILY [facility] Atorvastatin Calcium (Lipitor) 20 mg PO QHS [facility] Last Admin: 06/15/19 21:33 Dose: 20 mg Documented by: Budesonide (Pulmicort Aerosol) 0.5 mg INHALATION Q12H.RT [facility] Last Admin: 06/16/19 07:02 Dose: 0.5 mg Documented by: Calamine/Phenol (Calmoseptine Ointment) 1 applic TOPICAL TID [facility]; Protocol Last Admin: 06/16/19 06:47 Dose: Not Given Documented by: Calcium Carbonate (Tums) 1,000 mg PO DAILYCM [facility] Cholecalciferol (Vitamin D) 1,000 unit PO DAILY [facility] Dextrose (D50w Syringe) 0 gm IV X1 PRN; Protocol PRN Reason: Hypoglycemia Glucagon () 1 mg IM .X1 PRN PRN Reason: Hypoglycemia Guaifenesin (Mucinex) 1,200 mg PO BID [facility] Last Admin: 06/15/19 21:35 Dose: 1,200 mg Documented by: Heparin Sodium (Porcine) (Heparin Na) 5,000 unit SC Q8 [facility] Last Admin: 06/16/19 06:47 Dose: 5,000 unit Documented by: Sodium Chloride () 250 mls @ 15 mls/hr IV .[id number] PRN PRN Reason: Saline Flush Sodium Chloride () 1,000 mls @ 75 mls/hr IV .[id number] [facility] Last Admin: 06/16/19 01:05 Dose: 75 mls/hr Documented by: Diltiazem HCl 125 mg/ Dextrose 125 mls @ 5 mls/hr IV .Q25H [facility]; Protocol Last Admin: 06/16/19 07:55 Dose: 15 mg/hr, 15 mls/hr Documented by: Ipratropium [place] (Atrovent) 0.5 mg INHALATION Q6HWA.RT [facility] Last Admin: 06/16/19 07:02 Dose: 0.5 mg Documented by: Ondansetron HCl (Zofran) 4 mg IV Q8H PRN PRN PRN Reason: NAUSEA Last Admin: 06/12/19 23:39 Dose: 4 mg Documented by: Pantoprazole Sodium (Protonix) 40 mg PO DAILY [facility] Senna/Docusate Sodium (Senokot-S, Martina-Colace) 2 tablet PO BID PRN PRN PRN Reason: Constipation Sodium Chloride () 10 - 40 ml IV UD PRN PRN Reason: SALINE FLUSH Last Admin: 06/13/19 14:20 Dose: 10 ml Documented by: Medical Necessity - Tobacco Use Tobacco Use: Cigarettes Assessment/Plan All Active Problems (Last Reviewed 06/15/19 @ 08:45 by Stephanie Marroquin) Ileus (Acute) 78-year-old female with ileus 1. The patient's NG was removed yesterday but I have not started her on a diet. She is not passing any flatus yet. She has improvement in her distention of her abdomen but on KUB her small bowel still appears dilated and there is still contrast in the small bowel. I will repeat a KUB tomorrow and if this shows progression start her on clear liquids. I encouraged her to get out of bed and continue to use her incentive spirometer. She describes increase in productive sputum overnight. Stiven Rodríguez MD Pager: [facility] [address] [place] [address], [address] [place] [address] Office:
--- NOTE | 2019-06-16 08:28 | PN_ITS ---
Patient Problems: Active and Suspected Problems (Last Reviewed 06/15/19 @ 08:45 by Stephanie Marroquin) Ileus (Acute) Subjective: Chief complaint: Follow-up after admission for small bowel obstruction versus bowel ileus, A. fib with RVR, acute cystitis and urinary retention. Patient seen and examined. No acute events overnight. She had small loose bowel movements yesterday. She denied any nausea or vomiting. NG tube was taken out. Today, she complained of increasing shortness of breath with cough with brown sputum. She has been afebrile, blood pressure stable, pulse ox is 90% on 3 L. - Physical Exam Vitals/I&O's: Vital Signs Temp Pulse Resp BP Pulse Ox 97.2 F L 100 28 H 142/43 H 90 06/16/19 07:59 06/16/19 07:59 06/16/19 07:59 06/16/19 07:59 06/16/19 07:59 Oxygen Flow Rate (L/min) 3 Oxygen Delivery Method Nasal Cannula Weight: 110 lb 14.28 oz Body Mass Index (BMI) 17.6 Intake and Output for Last 24 Hours 06/14/19 06/15/19 06/16/19 23:59 23:59 23:59 Intake Total 2111.67 / 2112.50 2264.00 / 2264.00 1237.50 / 1237.50 Output Total 2024 / 2024 625 / 625 125 / 125 Balance 86.67 / 87.50 1639.00 / 1639.00 1112.50 / 1112.50 General: Alert, Oriented x3, Cooperative, - - Moderately short of breath. HEENT: Atraumatic, PERRLA, EOMI, Normocephalic Oral: Moist Mucosa, No Gingival or Mucosal Lesions/ Ulcerations Neck: Supple, No JVD, Negative Carotid Bruits, Trachea Midline, Thyroid Normal Size and Texture Lungs: No rales, Diminished, Rhonchi, Short of Breath, Wheezes, - - Decreased breath sounds bilateral, bilateral rhonchi, wheezes. Cardiovascular: Normal S1, Normal S2, PMI Normal, Irregular Rate, Tachycardic Abdomen: Soft, Non Tender, No Hepato-splenomegaly, Hypoactive Bowel Sounds, Distended Extremities: No clubbing, No cyanosis, Edema - Trace edema. Skin: No rashes, No breakdown, Ulcer/ Wound Lymphatic: No Cervical, Supraclavicular, or Inguinal Adenopathy Neurological: Cranial nerves II-XII grossly intact, Neuro grossly intact Psych/Mental Status: Appropriate, Flat Affect Laboratory Results 06/16/19 06:37: WBC 7.5, RBC 2.86 L, Hgb 9.2 L, Hct 28.8 L, MCV 100.7 H, MCH 32.2 H, MCHC 31.9 L, RDW Std Deviation 65.0 H, RDW Coeff of Kellie 17.7 H, Plt Count 176, MPV 9.6, Immature Gran % (Auto) [employer], Neut % (Auto) [employer], Lymph % (Auto) [employer], [place] % (Auto) [employer], Eos % (Auto) [employer], Baso % (Auto) [employer], Absolute Neuts (auto) 5.9, Absolute Lymphs (auto) 1.05, Total Counted 100, Neutrophils % (Manual) 59, Band Neutrophils % 19 H, Lymphocytes % (Manual) 14 L, Monocytes % (Manual) 4, Eosinophils % (Manual) 2, Metamyelocytes % 1, Myelocytes % 1 H, Nucleated RBC % [employer], Diff Path Review May foll, Platelet Estimate ADEQUATE, Anisocytosis 2+ 06/16/19 06:37: Sodium 143, Potassium 3.7, Chloride 107, Carbon Dioxide 27.0, Anion Gap 9, BUN 28 H, Creatinine 1.71 H, Estim Creat Clear Calc 21.88, Est GFR (MDRD) Af Amer 37 L, Est GFR (MDRD) Non-Af 31 L, BUN/Creatinine Ratio 16.4, Glucose 101, Calcium 8.3 L Clinical Impression(s) from Imaging Studies Chest X-Ray 06/16/19 01:05 IMPRESSION: Bilateral basilar atelectasis with right perihilar atelectasis/scarring, overall stable study in the interval. Electronically Signed: Emily Mar MD at 1:38 EST , Service support , KUB X-Ray 06/16/19 05:55 IMPRESSION: Persistently abnormally dilated loops of small bowel consistent with an ileus, however, there is a decreased amount of contrast within small bowel and even a decreased amount within the remaining colon. at 0144 Reported and signed by: Davi Sanderson MD Electronically Signed: Davi Sanderson MD at 1:43 EST Tel , Service support , Current Medications Acetaminophen (Tylenol) 650 mg PO Q6H PRN PRN PRN Reason: Pain Score 1-3/Temp > 100.7 F Albuterol Sulfate (Ventolin Aerosols) 2.5 mg INHALATION Q2H PRN PRN PRN Reason: sob/wheezing Last Admin: 06/16/19 00:35 Dose: 2.5 mg Documented by: Amlodipine Besylate (Norvasc) 5 mg PO DAILY KAVIN Atorvastatin Calcium (Lipitor) 20 mg PO QHS [facility] Last Admin: 06/15/19 21:33 Dose: 20 mg Documented by: Budesonide (Pulmicort Aerosol) 0.5 mg INHALATION Q12H.RT [facility] Last Admin: 06/16/19 07:02 Dose: 0.5 mg Documented by: Calamine/Phenol (Calmoseptine Ointment) 1 applic TOPICAL TID KAVIN; Protocol Last Admin: 06/16/19 06:47 Dose: Not Given Documented by: Calcium Carbonate (Tums) 1,000 mg PO DAILYCM KAVIN Cholecalciferol (Vitamin D) 1,000 unit PO DAILY [facility] Dextrose (D50w Syringe) 0 gm IV X1 PRN; Protocol PRN Reason: Hypoglycemia Glucagon () 1 mg IM .X1 PRN PRN Reason: Hypoglycemia Guaifenesin (Mucinex) 1,200 mg PO BID [facility] Last Admin: 06/15/19 21:35 Dose: 1,200 mg Documented by: Heparin Sodium (Porcine) (Heparin Na) 5,000 unit SC Q8 [facility] Last Admin: 06/16/19 06:47 Dose: 5,000 unit Documented by: Sodium Chloride () 250 mls @ 15 mls/hr IV .[id number] PRN PRN Reason: Saline Flush Sodium Chloride () 1,000 mls @ 75 mls/hr IV .[id number] [facility] Last Admin: 06/16/19 01:05 Dose: 75 mls/hr Documented by: Diltiazem HCl 125 mg/ Dextrose 125 mls @ 5 mls/hr IV .Q25H KAVIN; Protocol Last Titration: 06/16/19 07:59 Dose: 15 mg/hr, 15 mls/hr Documented by: Ipratropium [place] (Atrovent) 0.5 mg INHALATION Q6HWA.RT KAVIN Last Admin: 06/16/19 07:02 Dose: 0.5 mg Documented by: Ondansetron HCl (Zofran) 4 mg IV Q8H PRN PRN PRN Reason: NAUSEA Last Admin: 06/12/19 23:39 Dose: 4 mg Documented by: Pantoprazole Sodium (Protonix) 40 mg PO DAILY KAVIN Senna/Docusate Sodium (Senokot-S, Martina-Colace) 2 tablet PO BID PRN PRN PRN Reason: Constipation Sodium Chloride () 10 - 40 ml IV UD PRN PRN Reason: SALINE FLUSH Last Admin: 06/13/19 14:20 Dose: 10 ml Documented by: Medical Necessity - Tobacco Use Smoking Status: Current every day smoker Tobacco Use: Cigarettes Assessment/Plan All Active Problems (Last Reviewed 06/15/19 @ 08:45 by Stephanie Marroquin) Ileus (Acute) This is a 78 years old female patient presented to the emergency room because of weakness and poor oral intake, found to have A. fib with RVR, acute cystitis, urinary retention as well as dysphagia and later, she developed suspected small bowel obstruction versus ileus. #1 small bowel obstruction versus bowel ileus: NG tube taken out. Patient had small bowel movements yesterday, no nausea vomiting. No flatus. She denied abdominal pain. KUB from today reviewed. Remains on n.p.o. General surgery on the case, recommended ambulation and no surgical intervention at this time. Chest x-ray from today reviewed. Patient could be having fluid overload in addition to atelectasis. She has been afebrile, no leukocytosis. Plan: Hold IV fluids, will give 1 dose of IV Lasix, resume IV fluids this afternoon. #2 A. fib with RVR: Remained on IV Cardizem drip. Heart rate has been around 100, blood pressure stable. Troponin is negative. 2D echocardiogram reviewed as above. I do not think this patient is a candidate for long-term anticoagulation. Serum potassium and magnesium were normal. #3 Streptococcus agalactiae acute cystitis: Completed 7 days of treatment with IV Rocephin and then transitioned to Duricef which also completed. #4 urinary retention: On Waldrop catheter. #5 distended gallbladder/biliary sludge/abnormal HIDA scan: Patient denied any right upper quadrant abdominal pain. LFT was normal. Lipase was normal. #7 dysphagia: Underwent upper GI series, reviewed. She is on PPI for GERD. Speech therapy is seeing the patient, she is on n.p.o. at this time. #8 COPD: On Pulmicort twice daily, Atrovent and albuterol as needed. She is on 3 L of oxygen. Plan as above. #9 hypertension: Blood pressure stable, she is only on IV Cardizem drip as above. #10 stage I sacral pressure ulcer: Wound care nurse consulted. #11 severe protein calorie malnutrition: Nutrition has been seeing the patient. #12 stage III chronic kidney disease: Baseline creatinine has been around 1.4 to 1.9 mg/dL. Today's creatinine is 1.71, stable at baseline. #13 DVT prophylaxis: Subcu heparin. This note was generated with [employer] dictation software. It may contain incorrect words, spelling, and punctuation that were not noted in checking the note before signing. Code Visit Inpatient E&M: 48594 Subs Hosp L2
[2019-06-16] MEDS: ROFLUMILAST 500 MCG TABLET PO (09:51)
[2019-06-16] MEDS: Pantoprazole Sodium 40 MG Tablet PO (09:52)
[2019-06-16] MEDS: guaiFENesin 1,200 MG Tablet 1200 MG PO (09:52)
[2019-06-16] MEDS: Calcium Carbonate 500 MG Tablet 1000 MG PO (09:52)
--- NOTE | 2019-06-16 13:47 | CASEMGMT ---
SW spoke with patient and her daughter. SW re-introduced self and role at [facility]. SW asked how things were going. Patient did not say anything as she was doing a breathing treatment and she was very winded just sitting there. Patient's daughter said she makes a little progress and then something else comes up. SW asked if they really feel patient can do rehab. Patient's daughter said that is the plan. SW encouraged them to think about whether or not this is realistic. SW told patient if at anytime she does not want to pursue aggressive treatment to let the physician know. Tala ACEVEDO MSW
[2019-06-16] MEDS: Menthol/Lanolin/Calamine/Znox 113 GM Tube 1 APPLIC TOPICAL (15:05)
--- NOTE | 2019-06-16 16:30 | NURSING ---
Pt's daughter concerned pt is having trouble breathing. This RN went in to check on pt. Pt satting 97% on 4LNC at this time.
--- NOTE | 2019-06-16 17:15 | RAD_ITS ---
STUDY: X-RAY - ABDOMEN/PELVIS REASON FOR EXAM: Female, 78 years old. Vomiting TECHNIQUE: Frontal views of the abdomen COMPARISON: None. FINDINGS: There is no bowel obstruction. Contrast is present throughout the bowel. There is a mild diffuse small bowel prominence. The visualized osseous structures are within normal limits. RAD/Abdomen Single View (Portable) IMPRESSION: Mild diffuse small bowel prominence, suggesting ileus. No evidence of obstruction. Electronically Signed: Jefry Grove, at 17:44 EST Tel , Service support ,
--- NOTE | 2019-06-16 17:20 | NURSING ---
This RN spoke with pt's daughter, Diana. Diana states that she is concerned that this is the beginning of the end and wondering what else that we will be able to do for the pt. This RN informed Dr. Guajardo and Dr. Rodríguez of the daughter and family's concerns. This RN spoke with Dr. Guajardo at 1715 on the phone and let him know that this RN believes the pt's daughter and family were ready to revisit the idea of the patient going hospice considering the new events of today. Dr. Guajardo made aware that Dr. Rodríguez was informed on the patient's status of vomiting/coughing brown colored fluid throughout the day and that a stat KUB was just placed and that Dr. Rodríguez said he would come visit the patient at 1730. Dr. Guajardo said that he would wait to see results of KUB then speak with the family about pt going hospice.
--- NOTE | 2019-06-16 17:23 | NURSING ---
Pt's daughter came out to the hallway to yell we need a nurse in 123, at this time multiple RNs came running in to pt's room. Pt was being positioned for Stat KUB ordered by Dr. Rodríguez during arrival to the room. Upon arrival to the room pt had brown bile coming from her mouth. VS obtained on arrival and NATHANIEL Hancock came in room. Cardizem gtt immediately stopped per Sal Chandler and Respiratory therapy in room placed on venti mask. Stat labs and CXR ordered. Pt's HR bradied down to 22 at 17:28 followed by asystole.
[2019-06-16] MEDS: Atropine Sulfate 1 MG/10 ML Syringe IV (17:35)
[2019-06-16 17:51] LABS: Bedside Glucose 77 mg/dL (70-110)
--- NOTE | 2019-06-16 18:00 | PCM.DEATH ---
Preliminary Cause of Pulseless electrical activity cardiac arrest, probable acute NC. Date of Admission: 06/07/19 Date of : 06/16/19 - Principle Diagnosis #1 PEA cardiac arrest. #2 atrial fibrillation with RVR. #3 small bowel obstruction versus bowel ileus. #3 severe protein calorie malnutrition. #5 Streptococcus agalactiae acute cystitis. Problem List: Active and Suspected Problems (Last Reviewed 06/15/19 @ 08:45 by Stephanie Marroquin) #1 chronic atrial fibrillation. #2 COPD. #3 hypertension. #4 stage III chronic kidney disease. #5 multifocal atrial tachycardia. #6 chronic diastolic CHF. Hospital Course This is a 78 years old female patient presented to the emergency department because of weakness and poor oral intake. Initially, she was diagnosed with acute cystitis and she was started on IV Rocephin and also found to have urinary retention and she had Waldrop catheter inserted. On admission also, she was found to have distended gallbladder. CT scan abdomen and pelvis without contrast revealed mildly distended gallbladder with possible sludge or poorly calcified stones, revealed nonspecific diffuse ileus and left nephrolithiasis without evidence of hydronephrosis. Patient was treated with IV Rocephin and IV fluids. Ultrasound gallbladder revealed biliary sludge without evidence of gallstones or acute cholecystitis. HIDA scan was performed and was abnormal with gallbladder ejection fraction less than 35%. Patient had no right upper quadrant abdominal pain. Her LFT was unremarkable. Later, patient developed A. fib with RVR and she was started on IV Cardizem drip. Her health condition during this hospital stay continued to decline in spite of appropriate treatment. After discussion with the patient's daughter and we brought the recommendation of hospice and palliative care but her daughter wanted as to do appropriate treatment for now although her all of her condition has been declining. Because of continued abdominal distention and abdominal pain, KUB was done that revealed distal small bowel or colonic obstruction versus bowel ileus although previous abdomen x-ray showed no evidence of bowel obstruction. Patient was kept on IV fluids, n.p.o. and NG tube was inserted with suction. General surgery consulted and recommended to continue conservative management. Patient had difficulties ambulating and she was very weak and almost bedridden most of her time. Being on n.p.o. and IV fluids, patient started to complain of shortness of breath which she attributed to volume overload in context of history of chronic diastolic CHF. Patient's condition continued to decline and her daughter was informed every day that her mother is not getting any better. CT scan abdomen and pelvis without contrast repeated on June 13, 2019 and revealed fluid-filled distended small bowel loops down to the ileum suggestive of ileus. Repeat chest x-ray revealed increasing bilateral basilar atelectasis and those are probably worsened by volume overload. On the day when patient , patient became more short of breath and she became bradycardic and then went into asystole. Patient was already DNR CCA. No CPR was done. Patient on June 16, 2019 at 1738. Time of : 1738 on 06/16/2019 Code Visit Inpatient E&M: 21805 Disch Hosp
--- NOTE | 2019-06-16 19:23 | PCM.HOSP.N ---
Hospitalist Note Hospitalist note: I was called to examine the patient approximately 5:37 PM this afternoon, she had an episode of bradycardia which progressed into asystole. Patient was a DNR CC arrest, upon examining the patient, she had no spontaneous respirations, pupils were dilated and there was no detectable heartbeat. Patient was pronounced at 5:38 PM, daughter was present and I talked briefly with the daughter and she did not want an autopsy. I feel the cause of was probably PEA from a myocardial infarction.
[2019-06-19 09:48] LABS: Pathologist Review Reviewed
== END 2019-06-16 17:38 | DRG 689 ==
LOC: ED 19:40 → MS3 20:29 → PCU 06-10 10:04
PROVIDERS: Internal Medicine; Nurse Practitioner Family; Admitting Provider Hospitalist; Emergency Provider Emergency Medicine; Family Provider Family Medicine; PCP Family Medicine; Referring Provider Hospitalist; Visit Provider Hospitalist
DX: N30.00 Acute cystitis without hematuria (principal); E43 Unspecified severe protein-calorie malnutrition; I21.9 Acute myocardial infarction, unspecified; I50.32 Chronic diastolic (congestive) heart failure; I13.0 Hypertensive heart and chronic kidney disease with heart failure and stage 1 through stage 4 chronic kidney disease, or unspecified chronic kidney disease; Z68.1 Body mass index [BMI] 19.9 or less, adult; I47.1 Supraventricular tachycardia; K56.7 Ileus, unspecified; K56.609 Unspecified intestinal obstruction, unspecified as to partial versus complete obstruction; B95.1 Streptococcus, group B, as the cause of diseases classified elsewhere; L89.151 Pressure ulcer of sacral region, stage 1; N18.3 Chronic kidney disease, stage 3 (moderate); I48.91 Unspecified atrial fibrillation; N20.0 Calculus of kidney; Z66 Do not resuscitate; I46.2 Cardiac arrest due to underlying cardiac condition; R33.9 Retention of urine, unspecified; I36.1 Nonrheumatic tricuspid (valve) insufficiency; R13.10 Dysphagia, unspecified; E78.5 Hyperlipidemia, unspecified; Z79.899 Other long term (current) drug therapy; K44.9 Diaphragmatic hernia without obstruction or gangrene; K82.8 Other specified diseases of gallbladder; J44.9 Chronic obstructive pulmonary disease, unspecified; Z87.891 Personal history of nicotine dependence
CPT/HCPCS: 36415; 71045; 71046; 74018; 74176; 74246; 76705; 78227; 80048; 80053; 81001; 82962; 83690; 83735; 83880; 84100; 84484; 85025; 85027; 87077; 87086; 87088; 87186; 92507; 92526; 92610; 93005; 94640; 94668; 97110; 97116; 97162; 97166; 97530; 97535; 97802; 97803; 99251; 99285; A9537; J7030; J7040; A4216; G0463; J1940; J2405